=== PATIENT | female | born 1935 | race Caucasian/White ===

== ENCOUNTER 2016-10-06 06:50 | Inpatient (IN) | payer MEDICARE ==
[~2016-10-06] VITALS: Ht 172.7 cm; Wt 55.3 kg
[~2016-10-06 06:50] MED LIST: ACET325T9 PO; ASPI-482 PO; BUPR100T8 PO; DONE5TAB33 PO; LEVO125T5 PO; LEVO75TA5 PO; LISI5TAB PO; MELO-150 PO; MELO-156 PO; PARO20TA3 PO; RIVA1PAT22 TD; SIMV80TA3 PO
[2016-10-06] MEDS ORDERED: IV NORMAL SALINE 500ML BAG 500 ML IV ONE (07:15)
--- NOTE | 2016-10-06 07:27 | ED.ADGEN ---
Past Medical History Past Medical History: Dementia, High Cholesterol, Hypothyroid, Other Additional Past Medical Histor: headaches Past Surgical History: Appendectomy, Hysterectomy Additional Past Surgical Histo: cataracts Alcohol Use: Occasionally Drug Use: None Adult General Chief Complaint Chief Complaint: WEAKNESS/GENERALIZED HPI HPI Patient is a 81 year old female who presents with generalized weakness, cough and 3 loose stools. Symptoms started 2 days ago, she's had a cough for several days, now feeling short of breath. She does report chest pain when she has her cough. No known fevers, general malaise, intermittent chills. She is seen by primary care physician on Tuesday with no clear signs of infection. Denies dysuria, not complaining of abdominal pain. Chronic headache that is unchanged from baseline stemming from an accident 2 years ago. Primary care physician is Dr. Larsen. Review of Systems Review of Systems Constitutional: Is febrile upon arrival Eyes: Denies change in visual acuity. [] HENT: Denies nasal congestion or sore throat. [] Respiratory: Per history of present illness GI: Denies abdominal pain : Denies dysuria. [] Musculoskeletal: Generalized malais Integument: Denies rash. [] Neurologic: Denies focal weakness or sensory changes. [] Current Medications Current Medications Current Medications Medications (Trade) Dose Ordered Sig/Ang Start Time Stop Time Status Last Admin Dose Admin Acetaminophen 1000 mg 1,000 mg 1X ONCE 10/06/16 07:45 10/06/16 07:46 DC 10/06/16 07:49 1,000 MG Info (Do NOT chart on this entry -- for MONITORING) 1 each PRN DAILY PRN 10/06/16 08:30 10/08/16 08:29 Iohexol (Omnipaque 300 Mg/ml) 75 ml 1X ONCE 10/06/16 08:30 10/06/16 08:31 DC 10/06/16 08:55 75 ML Levofloxacin/ Dextrose (LEVAQUIN 500mg PREMIX) 100 ml @ 100 mls/hr 1X ONCE 10/06/16 08:30 10/06/16 09:29 DC 10/06/16 09:29 100 MLS/HR Levofloxacin/ Dextrose 1 each 1 each PRN DAILY PRN 10/06/16 08:15 Ondansetron HCl (Zofran) 4 mg STK-MED ONCE 10/06/16 07:53 5/3/17 07:54 DC Piperacillin Sod/ Tazobactam Sod (Zosyn Per Pharmacy) 1 each PRN DAILY PRN 10/06/16 08:15 10/06/16 08:15 DC Sodium Chloride (Iv Sodium Chloride 0.9% 500ml Bag) 500 ml @ 500 mls/hr 1X ONCE 10/06/16 07:15 10/06/16 07:29 DC Sodium Chloride (Iv Sodium Chloride 0.9% 1000ml Bag) 1,000 ml @ 1,000 mls/hr 1X ONCE 10/06/16 07:45 10/06/16 08:44 DC 10/06/16 07:51 1,000 MLS/HR Allergies Allergies Allergies Coded Allergies Type Severity Reaction Last Updated Verified No Known Drug Allergies 09/30/14 No Physical Exam Physical Exam Constitutional: Well developed, well nourished, ill-appearing, tachypnea HENT: Normocephalic, atraumatic, bilateral external ears normal, oropharynx slightly dry, no oral exudates, nose normal. [] Eyes: PERRLA, EOMI, conjunctiva normal, no discharge. [] Neck: Normal range of motion, no tenderness, supple, no stridor. [] Cardiovascular:Heart rate regular with regular rhythm, no murmur [] Lungs & Thorax: Bilateral breath sounds, moderate air movement, tachypnea, speaks in shortened sentences Abdomen: hyperactive bowel sounds, firm, nondistended, no tenderness, no masses , no pulsatile masses. [] Skin: hot, dry, no erythema, no rash. [] Back: No tenderness, no CVA tenderness. [] Extremities: No tenderness, no cyanosis, no clubbing, ROM intact, no edema. [] Neurologic: Alert and oriented X 3, normal motor function, normal sensory function, no focal deficits noted. [] Current Patient Data Vital Signs Vital Signs Date Time Temp Pulse Resp B/P Pulse Ox O2 Delivery O2 Flow Rate FiO2 10/06/16 08:18 80 28 132/60 95 Room Air 10/06/16 07:15 101.7 101.7 Lab Values Laboratory Tests Test 10/06/16 07:30 10/06/16 07:43 10/06/16 08:39 White Blood Count 18.3x10^3/uL (4.0-11.0) H Red Blood Count 3.32x10^6/uL (3.50-5.40) L Hemoglobin 10.9g/dL (12.0-15.5) L Hematocrit 33.2% (36.0-47.0) L Mean Corpuscular Volume 100fL (79-100) Mean Corpuscular Hemoglobin 33pg (25-35) Mean Corpuscular Hemoglobin Concent 33g/dL (31-37) Red Cell Distribution Width 13.3% (11.5-14.5) Platelet Count 269x10^3/uL (140-400) Neutrophils (%) (Auto) 90% (31-73) H Lymphocytes (%) (Auto) 6% (24-48) L Monocytes (%) (Auto) 4% (0-9) Eosinophils (%) (Auto) 0% (0-3) Basophils (%) (Auto) 0% (0-3) Neutrophils # (Auto) 16.5x10^3uL (1.8-7.7) H Lymphocytes # (Auto) 1.0x10^3/uL (1.0-4.8) Monocytes # (Auto) 0.7x10^3/uL (0.0-1.1) Eosinophils # (Auto) 0.0x10^3/uL (0.0-0.7) Basophils # (Auto) 0.0x10^3/uL (0.0-0.2) Segmented Neutrophils % 82% (35-66) H Band Neutrophils % 10% (0-9) H Lymphocytes % 6% (24-48) L Monocytes % 2% (0-10) Platelet Estimate Adequate (ADEQUATE) Lactic Acid Level 2.7mmol/L (0.4-2.0) H Total Bilirubin 1.9mg/dL (0.2-1.0) H Direct Bilirubin 0.4mg/dL (0.0-0.2) H Aspartate Amino Transferase (AST) 22U/L (15-37) Alanine Aminotransferase (ALT) 18U/L (14-59) Alkaline Phosphatase 82U/L (46-116) Troponin I Quantitative < 0.017ng/mL (0.000-0.055) WV-Wam-N-Type Natriuretic Peptide 2417pg/mL (0-449) H Total Protein 6.5g/dL (6.4-8.2) Albumin 2.8g/dL (3.4-5.0) L Lipase 68U/L (73-393) L POC Hemoglobin 11.6g/dL (12-15) L POC Hematocrit 34% (36-40) L POC Sodium 129mmol/L (135-145) L POC Potassium 4.2mmol/L (3.5-5.0) POC Chloride 96mmol/L (98-110) L POC Total CO2 22mmol/L (23-32) L Anion Gap 16mmol/L (6-14) H POC Blood Urea Nitrogen 17mg/dL (8-26) POC Creatinine 1.0mg/dL (0.5-1.4) Glucose Level 93mg/dL (70-99) POC Ionized Calcium (Sarah) 1.00mmol/L (1.13-1.32) L Urine Collection Type U cath Urine Color Mana Urine Clarity Clear Urine pH 5.5 Urine Specific [place] 1.015 Urine Protein 30mg/dL (NEG-TRACE) Urine Glucose (UA) Negativemg/dL (NEG) Urine Ketones (Stick) Negativemg/dL (NEG) Urine Blood Negative (NEG) Urine Nitrite Negative (NEG) Urine Bilirubin Small (NEG) Urine Urobilinogen Dipstick 1.0mg/dL (0.2 mg/dL) Urine Leukocyte Esterase Negative (NEG) Urine RBC 0/HPF (0-2) Urine WBC 1-4/HPF (0-4) Urine Squamous Epithelial Cells None/LPF Urine Bacteria 0/HPF (0-FEW) Urine Mucus Mod/LPF Laboratory Tests 10/06/16 07:30 Laboratory Tests 10/06/16 07:43 EKG EKG []83 bpm, sinus, normal axis, normal intervals, no ST elevation or depression, normal T waves, interpreted by me. Radiology/Procedures Radiology/Procedures CXR: Indication fever and cough. A single view of the chest was obtained and is compared to an exam 04/14/2015. There are suspect background changes of emphysema or fibrosis. The heart and pulmonary vessels are within normal limits. The left lung is clear. There is some slight right perihilar fullness and some suggested volume loss in the right upper lobe. Findings may reflect pneumonia. Other etiologies are not excluded. Follow-up imaging should be considered. There is no pleural fluid or pneumothorax. IMPRESSION: There is some suggested volume loss in the right upper lobe. Pneumonia is possible. Other etiologies are not excluded.. Follow-up imaging should be considered Course & Med Decision Making Course & Med Decision Making Pertinent Labs and Imaging studies reviewed. (See chart for details) Pt appears septic, pt given IV fluid bolus 1 L, blood cultures and lactate ordered, along with UA, EKG, labs/CXR. Tylenol for fever. Patient given IV Levaquin for her pneumonia. Patient received a second liter of IV fluids. CT of her abdomen did not show any acute process for infection. Will admit for her possible sepsis with her pneumonia, community-acquired. Patient accepted by Dr. Guevara [facility]. Diagnosis: Community-acquired pneumonia, sepsis-possible, fever Dragon Disclaimer Dragon Disclaimer This electronic medical record was generated, in whole or in part, using a voice recognition dictation system. LUANA ARAGON MD October 06, 2016 07:27
[2016-10-06] MEDS ORDERED: IV NORMAL SALINE 1000ML BAG 1,000 ML IV ONE ×2 (07:45→09:00)
[2016-10-06] MEDS ORDERED: ACETAMINOPHEN 500 MG TABLET PO ONE (07:45)
[2016-10-06 07:50] LABS: POTASSIUM ISTAT 4.2 mmol/L (3.5-5.0)
[2016-10-06] MEDS ORDERED: ONDANSETRON PF 4 MG/2 ML VIAL. ONE (07:53)
--- NOTE | 2016-10-06 07:58 | RAD ---
Indication fever and cough. A single view of the chest was obtained and is compared to an exam 04/14/2015. There are suspect background changes of emphysema or fibrosis. The heart and pulmonary vessels are within normal limits. The left lung is clear. There is some slight right perihilar fullness and some suggested volume loss in the right upper lobe. Findings may reflect pneumonia. Other etiologies are not excluded. Follow-up imaging should be considered. There is no pleural fluid or pneumothorax. IMPRESSION: There is some suggested volume loss in the right upper lobe. Pneumonia is possible. Other etiologies are not excluded.. Follow-up imaging should be considered
[2016-10-06] MEDS ORDERED: ONDANSETRON PF 4 MG/2 ML VIAL. IV ONE (08:00)
[2016-10-06 08:05] LABS: BASO % 0 % (0-3); EOS % 0 % (0-3); HEMATOCRIT 33.2 % (36.0-47.0); HEMOGLOBIN 10.9 g/dL (12.0-15.5); LYMPH % 6 % (24-48); MEAN CORPUSCULAR HEMOGLOBIN 33 pg (25-35); MEAN CORPUSCULAR HGB CONC 33 g/dL (31-37); MEAN CORPUSCULAR VOLUME 100 fL (79-100); MONO % 4 % (0-9); NEUT % 90 % (31-73); PLATELET COUNT 269 x10^3/uL (140-400); RED BLOOD COUNT 3.32 x10^6/uL (3.50-5.40); RED CELL DISTRIBUTION WIDTH 13.3 % (11.5-14.5); WHITE BLOOD COUNT 18.3 x10^3/uL (4.0-11.0)
[2016-10-06] MEDS ORDERED: PIP/TAZO PER PHARMACY MC PRN (08:15)
[2016-10-06] MEDS ORDERED: levOFLOXacin PER PHARMACY. MC PRN (08:15)
[2016-10-06 08:25] LABS: ALBUMIN 2.8 g/dL (3.4-5.0); DIRECT BILIRUBIN 0.4 mg/dL (0.0-0.2); TOTAL BILIRUBIN 1.9 mg/dL (0.2-1.0); TOTAL PROTEIN 6.5 g/dL (6.4-8.2)
[2016-10-06] MEDS ORDERED: IOHEXOL 300 MG/ML 75 ML VIAL IV ONE (08:30)
[2016-10-06] MEDS ORDERED: CONTRAST GIVEN MC PRN (08:30)
[2016-10-06 08:48] LABS: BILIRUBIN,URINE SMALL (NEG); GLUCOSE,URINE NEGATIVE (NEG); NITRITE,URINE NEGATIVE (NEG); PH,URINE 5.5; PROTEIN,URINE 30 mg/dL (NEG-TRACE)
[2016-10-06 09:14] LABS: BACTERIA,URINE 0 /HPF (0-FEW); RBC,URINE 0 /HPF (0-2)
--- NOTE | 2016-10-06 09:26 | RAD ---
CT of the abdomen and pelvis with contrast, 10/06/2016: History: Sepsis, firm abdomen Multidetector CT imaging was performed following IV bolus injection of iodinated contrast material. No oral contrast material was administered for this exam. There is a small amount of right-sided pleural fluid, and a trace amount of left-sided pleural fluid. There is mild streaky atelectasis and/or scarring in the lung bases. There is minimal traction bronchiectasis in the inferior lingular region on the left. A trace amount of pericardial fluid is present. The liver is enlarged with a prominent Dillan's lobe, measuring 22 cm in craniocaudad extent. No hepatic mass is identified. The gallbladder is small. No pancreatic abnormality is detected. The spleen is of normal size. It contains calcified granulomata. No renal abnormality is detected. There is moderate aortoiliac calcific plaquing. There is no evidence of aneurysm no abdominal or pelvic adenopathy is seen. The uterus is surgically absent. There is a paucity of intra-abdominal fat the bowel loops in this patient. There is a moderate amount of gas in large and small bowel with scattered air-fluid levels. No obstructive process is seen. There is a small amount of free fluid in the pelvis. No free air is evident in the abdomen or pelvis. Moderate degenerative disc disease is present at L5-S1. IMPRESSION: 1. Hepatomegaly. 2. Scattered air-fluid levels in the GI tract in a pattern suggesting a mild generalized ileus. 3. Small amount of free fluid in the pelvis. 4. Small right pleural effusion PQRS Compliance Statement: One or more of the following individualized dose reduction techniques were utilized for this examination: 1. Automated exposure control 2. Adjustment of the mA and/or kV according to patient size 3. Use of iterative reconstruction technique
--- NOTE | 2016-10-06 10:34 | ACF ---
Admission Forms Criteria SEPSIS and OTHER FEBRILE ILLNESS, W/O FOCAL INFECTION Clinical Indications for Admission to Inpatient Care ( Place 'X' for any and all applicable criteria): Admission is indicated for ANY ONE of the following (1)(2)(3)(4): [ ] I. Bacteremia [ ]II. Suspected or identified specific infection requiring hospitalization (eg, meningitis, endocarditis) [ ]III. Hemodynamic instability [ ]IV. Altered mental status [X]V. Failure or unavailability of outpatient antimicrobial treatment [ ]. Hypoxemia [ ]VII. Seizures [ ]VIII. High-risk febrile neutropenia [ ]IX. Need for parenteral antibiotic in patient who is likely to abuse vascular access device (eg, injection drug user) [A](7) [ ]X. Temperature greater than 104.9 degrees F (40.5 degrees C) (oral) [ ]XI. Inpatient admission required rather than observation care because of ANY ONE of the following: [ ]1) Specific infection identified that is too severe for outpatient treatment or observation care trial [ ]2) Metabolic disorder (eg, hypoglycemia, hyperglycemia, metabolic acidosis) that is severe or persistent [ ]3) Temperature greater than 103.1 degrees F (39.5 degrees C) ( oral) that is not responsive to observation care treatment [ ]4) IV fluid to replace significant ongoing (eg, for over 24 hours) losses (> 3 L/m2 per day) [ ]5) Supplemental oxygen or respiratory treatments for over 24 hours that is performable only in acute inpatient setting [ ]6) Parenteral nutrition regimen need that must be implemented on inpatient basis [ ]7) Strict or protective (eg, laminar flow) isolation [ ]8) Other condition, treatment or monitoring requiring inpatient admission Extended stay beyond goal length of stay may be needed for(1)(3) [ ]a) Sepsis or septic shock(22) [ ]b) Positive blood cultures [ ]c) Insufficient oral intake [ ]d) High-risk febrile neutropenia(29)(30) [ ]e) Continued fever and clinical instability [ ]f) Clinically active comorbid illness (e.g,heart failure, renal failure , diabetes) The original [employer] content created by [employer] has been revised. The portions of the content which have been revised are identified through the use of italic text or in bold, and [employer] has neither reviewed nor approved the modified material. All other unmodified content is copyright [facility]. Please see references footnoted in the original [facility] edition 2016 Admission Criteria Met?: Yes BRITTANI GANT October 06, 2016 10:34
--- NOTE | 2016-10-06 10:48 | EKG ---
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
[2016-10-06 10:52] LABS: PLT ESTIMATE ADEQUATE (ADEQUATE)
[2016-10-06 11:00] VITALS: BP 106/50
[2016-10-06] MEDS ORDERED: ONDANSETRON PF 4 MG/2 ML VIAL. IV PRN (11:15)
[2016-10-06] MEDS: ASPIRIN ENTERIC COATED 81 MG TABLET.DR. PO SCH (11:30)
[2016-10-06] MEDS ORDERED: LISINOPRIL 5 MG TABLET. PO SCH (11:30)
--- NOTE | 2016-10-06 11:37 | PDOC1 ---
History and Physical Date of Admission Date of Admission DATE: 10/06/16 TIME: 11:29 Identification/Chief Complaint Chief Complaint cough, soa Problems: Source Source: Caregiver, Chart review, Patient History of Present Illness History of Present Illness 81 y.o female accompanied by today, few days hx cough, not feeling well, Went to see PCP earlier this week, told was ok, auscultation clear , sent home, But got worse,subjective fevers at home and soa. Went to ED, at ED , sinus tach, tachypneic, elevated lactate 2.5, WBC 18,. Na 129, BNP > 2K. CXR haziness on RUL/infiltrate. Pt does feel and admits to weakness, concerned about 30 lb weight loss over a yr, No hx CA in family but never has had mammogram or Cscopes done either, Claims not eat much but does eat. ABd mildly tensed per er eval, CT ordered, showed mild ileus, pt denies any sxs. UA is still pending Past Medical History Cardiovascular: HTN, Hyperlipidemia CENTRAL NERVOUS SYSTEM: Dementia, Vertigo Heme/Onc: B12 deficiency Psych: Anxiety, Depression Musculoskeletal: Osteoarthritis, Other Renal/: Urinary Incontinence Endocrine: Hypothyroidism Past Surgical History Past Surgical History: Appendectomy, Cholecystectomy, Hysterectomy Family History Family History: Coronary Artery Disease Social History Smoke: No ALCOHOL: none Drugs: None Current Medications Current Medications Current Medications Sodium Chloride (Iv Sodium Chloride 0.9% 500ml Bag) 500 ml @ 500 mls/hr 1X ONCE IV ; Start 10/06/16 at 07:15; Stop 10/06/16 at 07:29; Status DC Acetaminophen 1000 mg 1,000 mg 1X ONCE PO Last administered on 10/06/16 07:49 ; Start 10/06/16 at 07:45; Stop 10/06/16 at 07:46; Status DC Sodium Chloride (Iv Sodium Chloride 0.9% 1000ml Bag) 1,000 ml @ 1,000 mls/hr 1X ONCE IV Last administered on 10/06/16 07:51; Start 10/06/16 at 07:45; Stop 10/06/16 at 08:44; Status DC Ondansetron HCl (Zofran) 4 mg 1X ONCE IV Last administered on 10/06/16 07:55; Start 10/06/16 at 08:00; Stop 10/06/16 at 08:06; Status DC Ondansetron HCl (Zofran) 4 mg STK-MED ONCE .ROUTE ; Start 10/06/16 at 07:53; Stop 10/06/16 at 07:54; Status DC Piperacillin Sod/ Tazobactam Sod (Zosyn Per Pharmacy) 1 each PRN DAILY PRN MC SEE COMMENTS; Start 10/06/16 at 08:15; Stop 10/06/16 at 08:15; Status DC Levofloxacin/ Dextrose 1 each 1 each PRN DAILY PRN MC SEE COMMENTS; Start at 08:15 Levofloxacin/ Dextrose (LEVAQUIN 500mg PREMIX) 100 ml @ 100 mls/hr 1X ONCE IV Last administered on 10/06/16 09:29; Start 10/06/16 at 08:30; Stop 10/06/16 at 09:29; Status DC Iohexol (Omnipaque 300 Mg/ml) 75 ml 1X ONCE IV Last administered on 10/06/16 08:55; Start 10/06/16 at 08:30; Stop 10/06/16 at 08:31; Status DC Info (Do NOT chart on this entry -- for MONITORING) 1 each PRN DAILY PRN MC SEE COMMENTS; Start 10/06/16 at 08:30; Stop 10/08/16 at 08:29 Acetaminophen 650 mg 650 mg PRN Q4HRS PRN PO FEVER; Start 10/06/16 at 09:00; Stop 10/07/16 at 08:59 Sodium Chloride 1,000 ml @ 1,000 mls/hr 1X ONCE IV Last administered on 09:29; Start 10/06/16 at 09:00; Stop 10/06/16 at 09:59; Status DC Levofloxacin/ Dextrose (LEVAQUIN 750mg PREMIX) 150 ml @ 100 mls/hr Q48H IV ; Start 10/07/16 at 09:00 Ondansetron HCl (Zofran) 4 mg PRN Q6HRS PRN IV NAUSEA/VOMITING; Start 10/06/16 at 11:15 Aspirin (Ecotrin) 81 mg DAILYAC PO ; Start 10/06/16 at 11:30 Levothyroxine Sodium (Synthroid) 75 mcg DAILY06 PO ; Start 10/06/16 at 11:30 Lisinopril (Prinivil) 5 mg DAILY PO ; Start 10/06/16 at 11:30 Active Scripts Active Tylenol (Acetaminophen) 325 Mg Tablet 650 Mg PO PRN Q4HRS PRN Prinivil (Lisinopril) 5 Mg Tablet 5 Mg PO DAILY Levothyroxine Sodium 75 Mcg Tablet 1 Tab PO DAILY Allergies Allergies: Coded Allergies: No Known Drug Allergies (Unverified , 09/30/14) ROS General: YES: Chills PSYCHOLOGICAL ROS: No: Anxiety, Behavioral Disorder, Concentration difficultie , Decreased libido, Depression, Disorientation, Hallucinations, Hostility, Irritablity, Memory difficulties, Mood Swings, Obsessive thoughts, Other, Physical abuse, Sexual abuse, Sleep disturbances, Suicidal ideation Eyes: No Blurry vision, No Decreased vision, No Double vision, No Dry eyes, No Excessive tearing, No Eye Pain, No Itchy Eyes, No Loss of vision, No Other, No Photophobia, No Scotomata, No Uses contacts, No Uses glasses HEENT: No: Epistaxis, Heacaches, Hearing change, Nasal congestion, Nasal discharge, Oral lesions, Other, Sinus pain, Sneezing, Snoring, Sore Throat, Tinnitus, Vertigo, Visual Changes, Vocal changes ALLERGY AND IMMUNOLOGY: No: Hives, Insect Bite Sensitivity, Itchy/Watery Eyes, Nasal Congestion, Other, Post Nasal Drip, Seasonal Allergies Hematological and Lymphatic: No: Bleeding Problems, Blood Clots, Blood Transfusions, Brusing, Night Sweats, Other, Pallor, Swollen Lymph Nodes ENDOCRINE: No: Breast Changes, Galactorrhea, Hair Pattern Changes, Hot Flashes , Malaise/lethargy, Mood Swings, Other, Palpitations, Polydipsia/polyuria, Skin Changes, Temperature Intolerance, Unexpected Weight Changes Breast: No New/Changing Breast Lumps, No Nipple changes, No Nipple discharge, No Other Respiratory: YES: Cough, Pleuritic Pain, Shortness of breath Cardiovascular: yes Chest Pain Gastrointestinal: No Abdominal Pain, No Constipation, No Diarrhea, No Hematochezia, No Melena, No Nausea, No Other, No Vomiting Genitourinary: No , No , No , No , No , No , No , No Discharge, No Dysuria, No Flank Pain, No Frequency, No Hematuria, No Incontinence, No Other, No Pain, No Retention, No Urgency Musculoskeletal: No Gait Disturbance, No Joint Pain, No Joint Stiffness, No Joint Swelling, No Muscle Pain, No Muscular Weakness, No Other, No Pain In:, No Swelling In: Neurological: No Behavorial Changes, No Bowel/Bladder ControlChng, No Confusion , No Dizziness, No Gait Disturbance, No Headaches, No Impaired Coord/balance, No Memory Loss, No Numbness/Tingling, No Other, No Seizures, No Speech Problems , No Tremors, No Visual Changes, No Weakness Skin: No Acne, No Dry Skin, No Eczema, No Hair Changes, No Lumps, No Mole Changes, No Mottling, No Nail Changes, No Other, No Pruritus, No Rash, No Skin Lesion Changes Physical Exam General: Alert, Oriented X3, Cooperative, No acute distress HEENT: Atraumatic, PERRLA Lungs: Normal air movement, Other (dec BS R upper, dullness to percussion R upper) Cardiovascular: S1, S2, Other (sinus tachy) Breasts: Normal Abdomen: Normal bowel sounds Male Genitals Exam: normal genitalia Rectal Exam: not examined Extremities: No clubbing, No cyanosis, No edema, Normal pulses, No tenderness/ swelling Skin: No rashes, No breakdown, No significant lesion Neuro: Normal gait, Normal speech, Strength at 5/5 X4 ext, Normal tone, Sensation intact, Cranial nerves 3-12 NL, Reflexes 2+ Psych/Mental Status: Mental status NL, Mood NL Vitals Vitals Vital Signs Date Time Temp Pulse Resp B/P Pulse Ox O2 Delivery O2 Flow Rate FiO2 10/06/16 10:35 62 16 115/58 94 Room Air 10/06/16 07:15 101.7 101.7 Labs Labs Laboratory Tests Test 10/06/16 07:30 10/06/16 07:43 10/06/16 08:39 White Blood Count 18.3x10^3/uL (4.0-11.0) Red Blood Count 3.32x10^6/uL (3.50-5.40) Hemoglobin 10.9g/dL (12.0-15.5) Hematocrit 33.2% (36.0-47.0) Mean Corpuscular Volume 100fL (79-100) Mean Corpuscular Hemoglobin 33pg (25-35) Mean Corpuscular Hemoglobin Concent 33g/dL (31-37) Red Cell Distribution Width 13.3% (11.5-14.5) Platelet Count 269x10^3/uL (140-400) Neutrophils (%) (Auto) 90% (31-73) Lymphocytes (%) (Auto) 6% (24-48) Monocytes (%) (Auto) 4% (0-9) Eosinophils (%) (Auto) 0% (0-3) Basophils (%) (Auto) 0% (0-3) Neutrophils # (Auto) 16.5x10^3uL (1.8-7.7) Lymphocytes # (Auto) 1.0x10^3/uL (1.0-4.8) Monocytes # (Auto) 0.7x10^3/uL (0.0-1.1) Eosinophils # (Auto) 0.0x10^3/uL (0.0-0.7) Basophils # (Auto) 0.0x10^3/uL (0.0-0.2) Segmented Neutrophils % 82% (35-66) Band Neutrophils % 10% (0-9) Lymphocytes % 6% (24-48) Monocytes % 2% (0-10) Platelet Estimate Adequate (ADEQUATE) Lactic Acid Level 2.7mmol/L (0.4-2.0) Total Bilirubin 1.9mg/dL (0.2-1.0) Direct Bilirubin 0.4mg/dL (0.0-0.2) Aspartate Amino Transf (AST/SGOT) 22U/L (15-37) Alanine Aminotransferase (ALT/SGPT) 18U/L (14-59) Alkaline Phosphatase 82U/L (46-116) Troponin I Quantitative < 0.017ng/mL (0.000-0.055) BJ-Yhs-T-Type Natriuretic Peptide 2417pg/mL (0-449) Total Protein 6.5g/dL (6.4-8.2) Albumin 2.8g/dL (3.4-5.0) Lipase 68U/L (73-393) Bedside Hemoglobin 11.6g/dL (12-15) Bedside Hematocrit 34% (36-40) Bedside Sodium 129mmol/L (135-145) Bedside Potassium 4.2mmol/L (3.5-5.0) Bedside Chloride 96mmol/L (98-110) Bedside Total CO2 22mmol/L (23-32) Anion Gap 16mmol/L (6-14) Bedside Blood Urea Nitrogen 17mg/dL (8-26) Bedside Creatinine 1.0mg/dL (0.5-1.4) Glucose Level 93mg/dL (70-99) Bedside Ionized Calcium (Sarah) 1.00mmol/L (1.13-1.32) Urine Collection Type U cath Urine Color Mana Urine Clarity Clear Urine pH 5.5 Urine Specific Stearns 1.015 Urine Protein 30mg/dL (NEG-TRACE) Urine Glucose (UA) Negativemg/dL (NEG) Urine Ketones (Stick) Negativemg/dL (NEG) Urine Blood Negative (NEG) Urine Nitrite Negative (NEG) Urine Bilirubin Small (NEG) Urine Urobilinogen Dipstick 1.0mg/dL (0.2 mg/dL) Urine Leukocyte Esterase Negative (NEG) Urine RBC 0/HPF (0-2) Urine WBC 1-4/HPF (0-4) Urine Squamous Epithelial Cells None/LPF Urine Bacteria 0/HPF (0-FEW) Urine Mucus Mod/LPF Laboratory Tests Test 10/06/16 07:30 10/06/16 07:43 10/06/16 08:39 White Blood Count 18.3x10^3/uL (4.0-11.0) Red Blood Count 3.32x10^6/uL (3.50-5.40) Hemoglobin 10.9g/dL (12.0-15.5) Hematocrit 33.2% (36.0-47.0) Mean Corpuscular Volume 100fL (79-100) Mean Corpuscular Hemoglobin 33pg (25-35) Mean Corpuscular Hemoglobin Concent 33g/dL (31-37) Red Cell Distribution Width 13.3% (11.5-14.5) Platelet Count 269x10^3/uL (140-400) Neutrophils (%) (Auto) 90% (31-73) Lymphocytes (%) (Auto) 6% (24-48) Monocytes (%) (Auto) 4% (0-9) Eosinophils (%) (Auto) 0% (0-3) Basophils (%) (Auto) 0% (0-3) Neutrophils # (Auto) 16.5x10^3uL (1.8-7.7) Lymphocytes # (Auto) 1.0x10^3/uL (1.0-4.8) Monocytes # (Auto) 0.7x10^3/uL (0.0-1.1) Eosinophils # (Auto) 0.0x10^3/uL (0.0-0.7) Basophils # (Auto) 0.0x10^3/uL (0.0-0.2) Segmented Neutrophils % 82% (35-66) Band Neutrophils % 10% (0-9) Lymphocytes % 6% (24-48) Monocytes % 2% (0-10) Platelet Estimate Adequate (ADEQUATE) Lactic Acid Level 2.7mmol/L (0.4-2.0) Total Bilirubin 1.9mg/dL (0.2-1.0) Direct Bilirubin 0.4mg/dL (0.0-0.2) Aspartate Amino Transf (AST/SGOT) 22U/L (15-37) Alanine Aminotransferase (ALT/SGPT) 18U/L (14-59) Alkaline Phosphatase 82U/L (46-116) Troponin I Quantitative < 0.017ng/mL (0.000-0.055) XP-Quo-F-Type Natriuretic Peptide 2417pg/mL (0-449) Total Protein 6.5g/dL (6.4-8.2) Albumin 2.8g/dL (3.4-5.0) Lipase 68U/L (73-393) Bedside Hemoglobin 11.6g/dL (12-15) Bedside Hematocrit 34% (36-40) Bedside Sodium 129mmol/L (135-145) Bedside Potassium 4.2mmol/L (3.5-5.0) Bedside Chloride 96mmol/L (98-110) Bedside Total CO2 22mmol/L (23-32) Anion Gap 16mmol/L (6-14) Bedside Blood Urea Nitrogen 17mg/dL (8-26) Bedside Creatinine 1.0mg/dL (0.5-1.4) Glucose Level 93mg/dL (70-99) Bedside Ionized Calcium (Sarah) 1.00mmol/L (1.13-1.32) Urine Collection Type U cath Urine Color Mana Urine Clarity Clear Urine pH 5.5 Urine Specific Stearns 1.015 Urine Protein 30mg/dL (NEG-TRACE) Urine Glucose (UA) Negativemg/dL (NEG) Urine Ketones (Stick) Negativemg/dL (NEG) Urine Blood Negative (NEG) Urine Nitrite Negative (NEG) Urine Bilirubin Small (NEG) Urine Urobilinogen Dipstick 1.0mg/dL (0.2 mg/dL) Urine Leukocyte Esterase Negative (NEG) Urine RBC 0/HPF (0-2) Urine WBC 1-4/HPF (0-4) Urine Squamous Epithelial Cells None/LPF Urine Bacteria 0/HPF (0-FEW) Urine Mucus Mod/LPF VTE Prophylaxis Ordered VTE Prophylaxis Devices: Yes VTE Pharmacological Prophylaxi: Yes Assessment/Plan Assessment/Plan 1. SIRS, sepsis, sec to CAP 2. HTN 3. Hypothyroidism 4./ Hyponatremia on Rustam inhib 5. MIld ielus, no asymptomatic PLAN: Meets sepsis criteria with tachycardiac, tahcypnea, elevated WBC< elevated lactate, fevers at home, RUL infiltrate CAP coverage Pulmo consult Recheck lactate tami Fluid bolus Check BMP tami Check mycoplasma leigonella sec to hyponat COuld be sec to RUSTAM inhib too Cont PO synthroid Nebs PT/OT NUtirtion consult sec to poor PO Outpt c scope and mammogram discussed DVT prophy Seen at [facility] MD October 06, 2016 11:37
[2016-10-06] MEDS ORDERED: PROAIR HFA8.5 GM INH (11:44)
[2016-10-06] MEDS ORDERED: MAGNESIUM HYDROXIDE 2,400 MG/30 ML ORAL.SUSP. PO PRN (11:45)
[2016-10-06] MEDS ORDERED: FOLI1TAB16 PO (11:47)
[2016-10-06] MEDS ORDERED: METH2.5T PO (11:50)
[2016-10-06] MEDS: POLYETHYLENE GLYCOL 3350 17 GM PACKET. PO SCH (12:00)
[2016-10-06] MEDS ORDERED: HYDR200T5 PO (12:02)
[2016-10-06] MEDS ORDERED: CITA20TA5 PO (12:03)
--- NOTE | 2016-10-06 12:20 | PDOC ---
Provider Note Provider Note DICTATED SUSPECT RIGHT HILAR MASS/ WT LOSS CT CHEST /ABDOMEN/PELVIS ANN MARIE HERNANDEZ MD October 06, 2016 12:20
--- NOTE | 2016-10-06 12:42 | CONS ---
DATE OF CONSULTATION: 10/06/2016 ATTENDING PHYSICIAN: Denia Prado MD REASON FOR CONSULTATION: Pneumonia. HISTORY OF PRESENT ILLNESS: The patient is a pleasant 81-year-old female who has never smoked cigarettes. She said she was told that she had pneumonia. She has not been feeling well. She has been having a cough with no sputum production. She was also having pain in the right upper chest and also at the back area. The patient has lost weight and has not been eating well and has poor appetite. She has some increasing shortness of breath as well. I have reviewed patient's chest x-ray, which was performed today. There is some right hilar fullness and there is an infiltrate in the right upper lobe are. I have also reviewed her chest x-ray from 04/14/2015 and at that time, there appeared to be a rounded density in the right perihilar area, which could be a pulmonary artery shadow versus a right hilar adenopathy. I am concerned about the possibility of malignancy and a postobstructive pneumonia. She also had some bloody stools. CT abdomen and pelvis did not reveal any obvious mass. Consultation requested for further evaluation and management. PAST MEDICAL HISTORY: Hypertension, hyperlipidemia, dementia, vertigo, B12 deficiency, depression, osteoarthritis, urinary incontinence, and hypothyroidism. PAST SURGICAL HISTORY: Appendectomy, cholecystectomy, and hysterectomy. FAMILY HISTORY: Coronary artery disease. ALLERGIES: None. CURRENT MEDICATIONS: Reviewed as listed in the [facility] including antibiotics and Lovenox for DVT prophylaxis. SOCIAL HISTORY: Nonsmoker. PHYSICAL EXAMINATION: VITAL SIGNS: Blood pressure 106/50, afebrile, and pulse ox 94% on room air. NECK: Supple. LUNGS: Diminished breath sounds, right upper chest. No wheezing. CARDIOVASCULAR: Regular rate and rhythm. ABDOMEN: Soft. EXTREMITIES: With no pitting edema. LABORATORY DATA: Reviewed. White cell count 18.3, hemoglobin 10.9 and platelets are 269. BUN is 17, creatinine 1.0. IMPRESSION: 1. Persistent cough with weight loss and loss of appetite and progressive weakness in a patient with abnormal chest x-ray with right hilar fullness and also infiltrate in the right upper lobe. I suspect we may be dealing with a lung malignancy with postobstructive pneumonia. There was abnormality seen on the chest x-ray in 2014 as well. 2. No significant history of tobacco use. 3. Leukocytosis secondary to suspected post-obstructive pneumonia. 4. Hyponatremia could be related to [employer] metastasis. 5. Blood in the stools. CT abdomen negative for any malignancy. RECOMMENDATIONS: 1. Obtain CT chest to rule out right hilar mass and postobstructive pneumonia. 2. Follow sodium level. 3. Continue present antibiotics. 4. DVT prophylaxis with Lovenox. 5. P.r.n. bronchodilators. 6. Further recommendations to follow after review of CT chest. ANN MARIE HERNANDEZ MD DR: LINDA/juan JOB#: [id number] / [id number] MICHELLE
[2016-10-06] MEDS: LEVOTHYROXINE 75 MCG TABLET PO SCH (13:34)
[2016-10-06 14:15] LABS: NEGATIVE OBC MYCO NEG; POSITIVE OBC MYCO POS
--- NOTE | 2016-10-06 14:46 | RAD ---
Indication possible pathology in the right upper lobe seen on plain film. Axial imaging through the chest was performed. No contrast was administered for this exam. Note is made of a recent CT examination of the abdomen and pelvis. That exam was performed with contrast. No prior CT imaging of the chest is available. Imaging through the upper abdomen shows no finding outside those referenced on the CT examination earlier this day. Known small right pleural effusion is reproduced The thoracic aorta is grossly unremarkable. Significant mediastinal or hilar adenopathy is not seen. The left lung is clear apart from some bronchiectasis in the lingula. There is dense consolidation in the right upper lobe compatible with pneumonia. A dominant soft tissue mass is not seen in aerated lung. IMPRESSION: Dense consolidation in the right upper lobe compatible with pneumonia. PQRS Compliance Statement: One or more of the following individualized dose reduction techniques were utilized for this examination: 1. Automated exposure control 2. Adjustment of the mA and/or kV according to patient size 3. Use of iterative reconstruction technique
[2016-10-06 15:00] VITALS: BP 106/42
[2016-10-06] MEDS ORDERED: NON FORMULARY ITEM (Albuterol Sulfate (Proair Hfa Inhaler) 1 PUFF) INH PRN (15:00)
[2016-10-06] MEDS ORDERED: ALBUTEROL SULFATE 2.5 MG/3 ML NEBU. NEB PRN (15:15)
[2016-10-06] MEDS: CITALOPRAM 20 MG TABLET. PO SCH (16:37)
[2016-10-06] MEDS: ENOXAPARIN 30 MG/0.3 ML SYRINGE. SQ SCH (16:38)
[2016-10-06] MEDS: ACETAMINOPHEN 325 MG TABLET. PO PRN ×2 (16:38→21:12)
[2016-10-06 19:38] VITALS: BP 121/52
[2016-10-06 22:41] VITALS: BP 97/47
[2016-10-06] MEDS ORDERED: IV NORMAL SALINE 1000ML BAG 1,000 ML IV SCH (23:30)
[2016-10-07] VITALS (7 sets, daily range): BP systolic 87–134; BP diastolic 44–63
[2016-10-07] MEDS ORDERED: IV NORMAL SALINE 1000ML BAG 1,000 ML IV ONE
[2016-10-07 03:23] LABS: BASO % 0 % (0-3); EOS % 0 % (0-3); HEMATOCRIT 30.3 % (36.0-47.0); LYMPH # 0.9 x10^3/uL (1.0-4.8); LYMPH % 5 % (24-48); MEAN CORPUSCULAR HEMOGLOBIN 33 pg (25-35); MEAN CORPUSCULAR HGB CONC 33 g/dL (31-37); MEAN CORPUSCULAR VOLUME 100 fL (79-100); MONO % 2 % (0-9); NEUT % 92 % (31-73); PLATELET COUNT 220 x10^3/uL (140-400); RED BLOOD COUNT 3.03 x10^6/uL (3.50-5.40); RED CELL DISTRIBUTION WIDTH 13.2 % (11.5-14.5); WHITE BLOOD COUNT 17.6 x10^3/uL (4.0-11.0)
[2016-10-07 03:33] LABS: CALCIUM 7.8 mg/dL (8.5-10.1); GFR 53.1; POTASSIUM 3.4 mmol/L (3.5-5.1)
[2016-10-07] MEDS: LEVOTHYROXINE 75 MCG TABLET PO SCH (06:00)
[2016-10-07] MEDS: ACETAMINOPHEN 325 MG TABLET. PO PRN (06:00)
[2016-10-07] MEDS: CITALOPRAM 20 MG TABLET. PO SCH (08:28)
[2016-10-07] MEDS: ASPIRIN ENTERIC COATED 81 MG TABLET.DR. PO SCH (08:28)
[2016-10-07] MEDS: POLYETHYLENE GLYCOL 3350 17 GM PACKET. PO SCH (08:28)
[2016-10-07] MEDS ORDERED: POTASSIUM CHLORIDE 20 MEQ TABLET.ER. PO ONE (09:30)
--- NOTE | 2016-10-07 10:27 | PDOC ---
PROGRESS NOTES Chief Complaint Chief Complaint 1. SIRS, sepsis, sec to CAP 2. RUL PNA 3. HTN 4. Hypothyroidism on synthroid 5.Hyponatremia on Rustam inhib 6. 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 Poor pO, mod PCM 8, Hypokalemia sec to poor PO History of Present Illness History of Present Illness About the same, no inc SOA nO fevers WBC remains same 17-[address] chest shows dense RUL consolidation Working with PT now, weak Ate barely breakfast K mildly low Dw pt and family, has tried appetite stimulant by PCP in past to no avail - does not want more pills Feels cold yet hot - on synthroid Still loose stools PLAN: CPM Monitor leukocytosis and fevers Send sputum if specimen avail Second order for stool tests Might need SNU - might not be agreeable Nutrition on board MIght need gentle procalamine as caloric agent DVt prophy Dw family and RN Vitals Vitals Vital Signs Date Time Temp Pulse Resp B/P (MAP) Pulse Ox O2 Delivery O2 Flow Rate FiO2 10/07/16 08:00 Room Air 10/07/16 07:00 97.5 73 16 108/47 (67) 95 97.5 Physical Exam General: Alert, Oriented X3, Cooperative, No acute distress Abdomen: Normal bowel sounds Extremities: No clubbing, No cyanosis, No edema, Normal pulses, No tenderness/ swelling Skin: No rashes, No breakdown, No significant lesion Labs LABS Laboratory Tests Test 10/06/16 11:05 10/07/16 03:10 Lactic Acid Level 1.5 mmol/L (0.4-2.0) Mycoplasma Serology (LAB) Negative (NEGATIVE) White Blood Count 17.6 x10^3/uL (4.0-11.0) Red Blood Count 3.03 x10^6/uL (3.50-5.40) Hemoglobin 10.0 g/dL (12.0-15.5) Hematocrit 30.3 % (36.0-47.0) Mean Corpuscular Volume 100 fL (79-100) Mean Corpuscular Hemoglobin 33 pg (25-35) Mean Corpuscular Hemoglobin Concent 33 g/dL (31-37) Red Cell Distribution Width 13.2 % (11.5-14.5) Platelet Count 220 x10^3/uL (140-400) Neutrophils (%) (Auto) 92 % (31-73) Lymphocytes (%) (Auto) 5 % (24-48) Monocytes (%) (Auto) 2 % (0-9) Eosinophils (%) (Auto) 0 % (0-3) Basophils (%) (Auto) 0 % (0-3) Neutrophils # (Auto) 16.3 x10^3uL (1.8-7.7) Lymphocytes # (Auto) 0.9 x10^3/uL (1.0-4.8) Monocytes # (Auto) 0.4 x10^3/uL (0.0-1.1) Eosinophils # (Auto) 0.0 x10^3/uL (0.0-0.7) Basophils # (Auto) 0.0 x10^3/uL (0.0-0.2) Sodium Level 135 mmol/L (136-145) Potassium Level 3.4 mmol/L (3.5-5.1) Chloride Level 102 mmol/L (98-107) Carbon Dioxide Level 24 mmol/L (21-32) Anion Gap 9 (6-14) Blood Urea Nitrogen 14 mg/dL (7-20) Creatinine 1.0 mg/dL (0.6-1.0) Estimated GFR (Cockcroft-Gault) 53.1 Glucose Level 85 mg/dL (70-99) Calcium Level 7.8 mg/dL (8.5-10.1) Review of Systems Review of Systems feels cold yet warm, diarrhea, no cough, no n/v/emesis Comment Review of Relevant I have reviewed the following items sandra (where applicable) has been applied. Labs Laboratory Tests Test 10/06/16 07:30 10/06/16 07:43 10/06/16 08:39 10/06/16 11:05 White Blood Count 18.3 x10^3/uL (4.0-11.0) Red Blood Count 3.32 x10^6/uL (3.50-5.40) Hemoglobin 10.9 g/dL (12.0-15.5) Hematocrit 33.2 % (36.0-47.0) Mean Corpuscular Volume 100 fL (79-100) Mean Corpuscular Hemoglobin 33 pg (25-35) Mean Corpuscular Hemoglobin Concent 33 g/dL (31-37) Red Cell Distribution Width 13.3 % (11.5-14.5) Platelet Count 269 x10^3/uL (140-400) Neutrophils (%) (Auto) 90 % (31-73) Lymphocytes (%) (Auto) 6 % (24-48) Monocytes (%) (Auto) 4 % (0-9) Eosinophils (%) (Auto) 0 % (0-3) Basophils (%) (Auto) 0 % (0-3) Neutrophils # (Auto) 16.5 x10^3uL (1.8-7.7) Lymphocytes # (Auto) 1.0 x10^3/uL (1.0-4.8) Monocytes # (Auto) 0.7 x10^3/uL (0.0-1.1) Eosinophils # (Auto) 0.0 x10^3/uL (0.0-0.7) Basophils # (Auto) 0.0 x10^3/uL (0.0-0.2) Segmented Neutrophils % 82 % (35-66) Band Neutrophils % 10 % (0-9) Lymphocytes % 6 % (24-48) Monocytes % 2 % (0-10) Platelet Estimate Adequate (ADEQUATE) Lactic Acid Level 2.7 mmol/L (0.4-2.0) 1.5 mmol/L (0.4-2.0) Total Bilirubin 1.9 mg/dL (0.2-1.0) Direct Bilirubin 0.4 mg/dL (0.0-0.2) Aspartate Amino Transf (AST/SGOT) 22 U/L (15-37) Alanine Aminotransferase (ALT/SGPT) 18 U/L (14-59) Alkaline Phosphatase 82 U/L (46-116) Troponin I Quantitative < 0.017 ng/mL (0.000-0.055) LK-Bqc-P-Type Natriuretic Peptide 2417 pg/mL (0-449) Total Protein 6.5 g/dL (6.4-8.2) Albumin 2.8 g/dL (3.4-5.0) Lipase 68 U/L (73-393) Bedside Hemoglobin 11.6 g/dL (12-15) Bedside Hematocrit 34 % (36-40) Bedside Sodium 129 mmol/L (135-145) Bedside Potassium 4.2 mmol/L (3.5-5.0) Bedside Chloride 96 mmol/L (98-110) Bedside Total CO2 22 mmol/L (23-32) Anion Gap 16 mmol/L (6-14) Bedside Blood Urea Nitrogen 17 mg/dL (8-26) Bedside Creatinine 1.0 mg/dL (0.5-1.4) Glucose Level 93 mg/dL (70-99) Bedside Ionized Calcium (Sarah) 1.00 mmol/L (1.13-1.32) Urine Collection Type U cath Urine Color Mana Urine Clarity Clear Urine pH 5.5 Urine Specific [place] 1.015 Urine Protein 30 mg/dL (NEG-TRACE) Urine Glucose (UA) Negative mg/dL (NEG) Urine Ketones (Stick) Negative mg/dL (NEG) Urine Blood Negative (NEG) Urine Nitrite Negative (NEG) Urine Bilirubin Small (NEG) Urine Urobilinogen Dipstick 1.0 mg/dL (0.2 mg/dL) Urine Leukocyte Esterase Negative (NEG) Urine RBC 0 /HPF (0-2) Urine WBC 1-4 /HPF (0-4) Urine Squamous Epithelial Cells None /LPF Urine Bacteria 0 /HPF (0-FEW) Urine Mucus Mod /LPF Mycoplasma Serology (LAB) Negative (NEGATIVE) Test 10/07/16 03:10 White Blood Count 17.6 x10^3/uL (4.0-11.0) Red Blood Count 3.03 x10^6/uL (3.50-5.40) Hemoglobin 10.0 g/dL (12.0-15.5) Hematocrit 30.3 % (36.0-47.0) Mean Corpuscular Volume 100 fL (79-100) Mean Corpuscular Hemoglobin 33 pg (25-35) Mean Corpuscular Hemoglobin Concent 33 g/dL (31-37) Red Cell Distribution Width 13.2 % (11.5-14.5) Platelet Count 220 x10^3/uL (140-400) Neutrophils (%) (Auto) 92 % (31-73) Lymphocytes (%) (Auto) 5 % (24-48) Monocytes (%) (Auto) 2 % (0-9) Eosinophils (%) (Auto) 0 % (0-3) Basophils (%) (Auto) 0 % (0-3) Neutrophils # (Auto) 16.3 x10^3uL (1.8-7.7) Lymphocytes # (Auto) 0.9 x10^3/uL (1.0-4.8) Monocytes # (Auto) 0.4 x10^3/uL (0.0-1.1) Eosinophils # (Auto) 0.0 x10^3/uL (0.0-0.7) Basophils # (Auto) 0.0 x10^3/uL (0.0-0.2) Sodium Level 135 mmol/L (136-145) Potassium Level 3.4 mmol/L (3.5-5.1) Chloride Level 102 mmol/L (98-107) Carbon Dioxide Level 24 mmol/L (21-32) Anion Gap 9 (6-14) Blood Urea Nitrogen 14 mg/dL (7-20) Creatinine 1.0 mg/dL (0.6-1.0) Estimated GFR (Cockcroft-Gault) 53.1 Glucose Level 85 mg/dL (70-99) Calcium Level 7.8 mg/dL (8.5-10.1) Laboratory Tests Test 10/06/16 11:05 10/07/16 03:10 Lactic Acid Level 1.5 mmol/L (0.4-2.0) Mycoplasma Serology (LAB) Negative (NEGATIVE) White Blood Count 17.6 x10^3/uL (4.0-11.0) Red Blood Count 3.03 x10^6/uL (3.50-5.40) Hemoglobin 10.0 g/dL (12.0-15.5) Hematocrit 30.3 % (36.0-47.0) Mean Corpuscular Volume 100 fL (79-100) Mean Corpuscular Hemoglobin 33 pg (25-35) Mean Corpuscular Hemoglobin Concent 33 g/dL (31-37) Red Cell Distribution Width 13.2 % (11.5-14.5) Platelet Count 220 x10^3/uL (140-400) Neutrophils (%) (Auto) 92 % (31-73) Lymphocytes (%) (Auto) 5 % (24-48) Monocytes (%) (Auto) 2 % (0-9) Eosinophils (%) (Auto) 0 % (0-3) Basophils (%) (Auto) 0 % (0-3) Neutrophils # (Auto) 16.3 x10^3uL (1.8-7.7) Lymphocytes # (Auto) 0.9 x10^3/uL (1.0-4.8) Monocytes # (Auto) 0.4 x10^3/uL (0.0-1.1) Eosinophils # (Auto) 0.0 x10^3/uL (0.0-0.7) Basophils # (Auto) 0.0 x10^3/uL (0.0-0.2) Sodium Level 135 mmol/L (136-145) Potassium Level 3.4 mmol/L (3.5-5.1) Chloride Level 102 mmol/L (98-107) Carbon Dioxide Level 24 mmol/L (21-32) Anion Gap 9 (6-14) Blood Urea Nitrogen 14 mg/dL (7-20) Creatinine 1.0 mg/dL (0.6-1.0) Estimated GFR (Cockcroft-Gault) 53.1 Glucose Level 85 mg/dL (70-99) Calcium Level 7.8 mg/dL (8.5-10.1) Microbiology 10/06/16 Blood Culture - Preliminary, Resulted NO GROWTH AFTER 1 DAY Medications Current Medications Sodium Chloride 500 ml @ 500 mls/hr 1X ONCE IV ; Start 10/06/16 at 07:15; Stop 10/06/16 at 07:29; Status DC Acetaminophen (Tylenol) 1,000 mg 1X ONCE PO Last administered on 10/06/16 07: 49; Start 10/06/16 at 07:45; Stop 10/06/16 at 07:46; Status DC Sodium Chloride 1,000 ml @ 1,000 mls/hr 1X ONCE IV Last administered on 07:51; Start 10/06/16 at 07:45; Stop 10/06/16 at 08:44; Status DC Ondansetron HCl (Zofran) 4 mg 1X ONCE IV Last administered on 10/06/16 07:55; Start 10/06/16 at 08:00; Stop 10/06/16 at 08:06; Status DC Ondansetron HCl (Zofran) 4 mg STK-MED ONCE .ROUTE ; Start 10/06/16 at 07:53; Stop 10/06/16 at 07:54; Status DC Piperacillin Sod/ Tazobactam Sod (Zosyn Per Pharmacy) 1 each PRN DAILY PRN MC SEE COMMENTS; Start 10/06/16 at 08:15; Stop 10/06/16 at 08:15; Status DC Levofloxacin/ Dextrose (Levaquin Per Pharmacy) 1 each PRN DAILY PRN MC SEE COMMENTS; Start 10/06/16 at 08:15 Levofloxacin/ Dextrose 100 ml @ 100 mls/hr 1X ONCE IV Last administered on 09:29; Start 10/06/16 at 08:30; Stop 10/06/16 at 09:29; Status DC Iohexol (Omnipaque 300 Mg/ml) 75 ml 1X ONCE IV Last administered on 10/06/16 08:55; Start 10/06/16 at 08:30; Stop 10/06/16 at 08:31; Status DC Info (Do NOT chart on this entry -- for MONITORING) 1 each PRN DAILY PRN MC SEE COMMENTS; Start 10/06/16 at 08:30; Stop 10/08/16 at 08:29 Acetaminophen (Tylenol) 650 mg PRN Q4HRS PRN PO FEVER Last administered on 21:12; Start 10/06/16 at 09:00; Stop 10/07/16 at 08:59; Status DC Sodium Chloride 1,000 ml @ 1,000 mls/hr 1X ONCE IV Last administered on 09:29; Start 10/06/16 at 09:00; Stop 10/06/16 at 09:59; Status DC Levofloxacin/ Dextrose 150 ml @ 100 mls/hr Q48H IV Last administered on 08:29; Start 10/07/16 at 09:00 Ondansetron HCl (Zofran) 4 mg PRN Q6HRS PRN IV NAUSEA/VOMITING; Start 10/06/16 at 11:15 Aspirin (Ecotrin) 81 mg DAILYAC PO Last administered on 10/07/16 08:28; Start 10/06/16 at 11:30 Levothyroxine Sodium (Synthroid) 75 mcg DAILY06 PO Last administered on 06:00; Start 10/06/16 at 11:30 Lisinopril (Prinivil) 5 mg DAILY PO ; Start 10/06/16 at 11:30; Stop 10/06/16 at 15 :04; Status DC Enoxaparin Sodium (Lovenox 30mg Syringe) 30 mg DAILY16 SQ Last administered on 10/06/16 16:38; Start 10/06/16 at 16:00 Polyethylene Glycol (miraLAX PACKET) 17 gm DAILY PO Last administered on 08:28; Start 10/06/16 at 12:00 Magnesium Hydroxide (Milk Of Magnesia) 2,400 mg PRN DAILY PRN PO CONSTIPATION; Start 10/06/16 at 11:45 Citalopram Hydrobromide (CeleXA) 20 mg DAILY PO Last administered on 10/07/16 08:28; Start 10/06/16 at 15:30 Non-Formulary Medication 1 puff QIDPRN PRN INH SHORTNESS OF BREATH; Start at 15:00; Status UNV Albuterol Sulfate (Ventolin Neb Soln) 2.5 mg PRN QID PRN NEB SHORTNESS OF BREATH; Start 10/06/16 at 15:15 Sodium Chloride 1,000 ml @ 1,650 mls/hr Q37M IV ; Start 10/06/16 at 23:30; Stop 10/06/16 at 23:50; Status DC Sodium Chloride 1,000 ml @ 0 mls/hr 1X ONCE IV Last administered on 10/07/16 00:00; Start 10/07/16 at 00:00; Stop 10/07/16 at 00:01; Status DC Potassium Chloride (Klor-Con) 40 meq 1X ONCE PO Last administered on 10/07/16 09:53; Start 10/07/16 at 09:30; Stop 10/07/16 at 09:31; Status DC Active Scripts Active Tylenol (Acetaminophen) 325 Mg Tablet 650 Mg PO PRN Q4HRS PRN Prinivil (Lisinopril) 5 Mg Tablet 5 Mg PO DAILY Levothyroxine Sodium 75 Mcg Tablet 1 Tab PO DAILY Reported Citalopram Hbr (Citalopram Hydrobromide) 20 Mg Tablet 1 Tab PO DAILY Hydroxychloroquine Sulfate 200 Mg Tablet 1 Tab PO BID Methotrexate (Methotrexate Sodium) 2.5 Mg Tablet 4 Tab PO WEEKLY Folic Acid 1 Mg Tablet 1 Tab PO DAILY Proair Hfa Inhaler (Albuterol Sulfate) 8.5 Gm Hfa.aer.ad 1 Puff INH QIDPRN PRN Vitals/I & O Vital Sign - Last 24 Hours 10/06/16 10/06/16 10/06/16 10/06/16 10:35 11:00 11:00 15:00 Temp 97.5 97.5 97.3 97.5 97.5 97.3 Pulse 62 67 67 67 Resp 16 18 18 20 B/P (MAP) 115/58 (77) 106/50 (68) 106/50 (68) 106/42 (63) Pulse Ox 94 94 94 99 O2 Delivery Room Air Room Air Room Air Room Air 10/06/16 10/06/16 10/06/16 10/06/16 16:23 17:51 18:08 19:38 Temp 98.2 98.2 Pulse 71 Resp 18 B/P (MAP) 121/52 (75) Pulse Ox 97 98 O2 Delivery Room Air Room Air Room Air Room Air 10/06/16 10/06/16 10/07/16 10/07/16 20:00 22:41 01:50 02:28 Temp 98.6 97.6 98.6 97.6 Pulse 67 67 Resp 18 B/P (MAP) 97/47 (64) 124/52 (76) 107/54 (71) Pulse Ox 95 94 O2 Delivery Room Air Room Air Room Air 10/07/16 10/07/16 07:00 08:00 Temp 97.5 97.5 Pulse 73 Resp 16 B/P (MAP) 108/47 (67) Pulse Ox 95 O2 Delivery Room Air Room Air Intake and Output 10/06/16 10/06/16 10/07/16 14:59 22:59 06:59 Intake Total 1000 ml 240 ml Output Total 350 ml Balance 1000 ml -110 ml ALLA PETER MD October 07, 2016 10:26
--- NOTE | 2016-10-07 11:40 | PDOC ---
PULMONARY PROGRESS NOTES Subjective no soa Vitals Vital Signs Date Time Temp Pulse Resp B/P (MAP) Pulse Ox O2 Delivery O2 Flow Rate FiO2 10/07/16 11:00 98.0 68 16 87/44 (58) 97 Room Air 98.0 General: Alert, No acute distress Lungs: Clear Cardiovascular: S1, S2 Abdomen: Soft Neuro Exam: Alert Extremities: No Edema Skin: Warm Labs Laboratory Tests Test 10/06/16 07:30 10/06/16 07:43 10/06/16 08:39 10/06/16 11:05 White Blood Count 18.3 x10^3/uL (4.0-11.0) Red Blood Count 3.32 x10^6/uL (3.50-5.40) Hemoglobin 10.9 g/dL (12.0-15.5) Hematocrit 33.2 % (36.0-47.0) Mean Corpuscular Volume 100 fL (79-100) Mean Corpuscular Hemoglobin 33 pg (25-35) Mean Corpuscular Hemoglobin Concent 33 g/dL (31-37) Red Cell Distribution Width 13.3 % (11.5-14.5) Platelet Count 269 x10^3/uL (140-400) Neutrophils (%) (Auto) 90 % (31-73) Lymphocytes (%) (Auto) 6 % (24-48) Monocytes (%) (Auto) 4 % (0-9) Eosinophils (%) (Auto) 0 % (0-3) Basophils (%) (Auto) 0 % (0-3) Neutrophils # (Auto) 16.5 x10^3uL (1.8-7.7) Lymphocytes # (Auto) 1.0 x10^3/uL (1.0-4.8) Monocytes # (Auto) 0.7 x10^3/uL (0.0-1.1) Eosinophils # (Auto) 0.0 x10^3/uL (0.0-0.7) Basophils # (Auto) 0.0 x10^3/uL (0.0-0.2) Segmented Neutrophils % 82 % (35-66) Band Neutrophils % 10 % (0-9) Lymphocytes % 6 % (24-48) Monocytes % 2 % (0-10) Platelet Estimate Adequate (ADEQUATE) Lactic Acid Level 2.7 mmol/L (0.4-2.0) 1.5 mmol/L (0.4-2.0) Total Bilirubin 1.9 mg/dL (0.2-1.0) Direct Bilirubin 0.4 mg/dL (0.0-0.2) Aspartate Amino Transf (AST/SGOT) 22 U/L (15-37) Alanine Aminotransferase (ALT/SGPT) 18 U/L (14-59) Alkaline Phosphatase 82 U/L (46-116) Troponin I Quantitative < 0.017 ng/mL (0.000-0.055) SO-Gsa-[id number]-Type Natriuretic Peptide 2417 pg/mL (0-449) Total Protein 6.5 g/dL (6.4-8.2) Albumin 2.8 g/dL (3.4-5.0) Lipase 68 U/L (73-393) Bedside Hemoglobin 11.6 g/dL (12-15) Bedside Hematocrit 34 % (36-40) Bedside Sodium 129 mmol/L (135-145) Bedside Potassium 4.2 mmol/L (3.5-5.0) Bedside Chloride 96 mmol/L (98-110) Bedside Total CO2 22 mmol/L (23-32) Anion Gap 16 mmol/L (6-14) Bedside Blood Urea Nitrogen 17 mg/dL (8-26) Bedside Creatinine 1.0 mg/dL (0.5-1.4) Glucose Level 93 mg/dL (70-99) Bedside Ionized Calcium (Sarah) 1.00 mmol/L (1.13-1.32) Urine Collection Type U cath Urine Color Mana Urine Clarity Clear Urine pH 5.5 Urine Specific [place] 1.015 Urine Protein 30 mg/dL (NEG-TRACE) Urine Glucose (UA) Negative mg/dL (NEG) Urine Ketones (Stick) Negative mg/dL (NEG) Urine Blood Negative (NEG) Urine Nitrite Negative (NEG) Urine Bilirubin Small (NEG) Urine Urobilinogen Dipstick 1.0 mg/dL (0.2 mg/dL) Urine Leukocyte Esterase Negative (NEG) Urine RBC 0 /HPF (0-2) Urine WBC 1-4 /HPF (0-4) Urine Squamous Epithelial Cells None /LPF Urine Bacteria 0 /HPF (0-FEW) Urine Mucus Mod /LPF Mycoplasma Serology (LAB) Negative (NEGATIVE) Test 10/07/16 03:10 White Blood Count 17.6 x10^3/uL (4.0-11.0) Red Blood Count 3.03 x10^6/uL (3.50-5.40) Hemoglobin 10.0 g/dL (12.0-15.5) Hematocrit 30.3 % (36.0-47.0) Mean Corpuscular Volume 100 fL (79-100) Mean Corpuscular Hemoglobin 33 pg (25-35) Mean Corpuscular Hemoglobin Concent 33 g/dL (31-37) Red Cell Distribution Width 13.2 % (11.5-14.5) Platelet Count 220 x10^3/uL (140-400) Neutrophils (%) (Auto) 92 % (31-73) Lymphocytes (%) (Auto) 5 % (24-48) Monocytes (%) (Auto) 2 % (0-9) Eosinophils (%) (Auto) 0 % (0-3) Basophils (%) (Auto) 0 % (0-3) Neutrophils # (Auto) 16.3 x10^3uL (1.8-7.7) Lymphocytes # (Auto) 0.9 x10^3/uL (1.0-4.8) Monocytes # (Auto) 0.4 x10^3/uL (0.0-1.1) Eosinophils # (Auto) 0.0 x10^3/uL (0.0-0.7) Basophils # (Auto) 0.0 x10^3/uL (0.0-0.2) Sodium Level 135 mmol/L (136-145) Potassium Level 3.4 mmol/L (3.5-5.1) Chloride Level 102 mmol/L (98-107) Carbon Dioxide Level 24 mmol/L (21-32) Anion Gap 9 (6-14) Blood Urea Nitrogen 14 mg/dL (7-20) Creatinine 1.0 mg/dL (0.6-1.0) Estimated GFR (Cockcroft-Gault) 53.1 Glucose Level 85 mg/dL (70-99) Calcium Level 7.8 mg/dL (8.5-10.1) Thyroid Stimulating Hormone (TSH) 4.248 uIU/mL (0.358-3.74) Laboratory Tests Test 10/07/16 03:10 White Blood Count 17.6 x10^3/uL (4.0-11.0) Red Blood Count 3.03 x10^6/uL (3.50-5.40) Hemoglobin 10.0 g/dL (12.0-15.5) Hematocrit 30.3 % (36.0-47.0) Mean Corpuscular Volume 100 fL (79-100) Mean Corpuscular Hemoglobin 33 pg (25-35) Mean Corpuscular Hemoglobin Concent 33 g/dL (31-37) Red Cell Distribution Width 13.2 % (11.5-14.5) Platelet Count 220 x10^3/uL (140-400) Neutrophils (%) (Auto) 92 % (31-73) Lymphocytes (%) (Auto) 5 % (24-48) Monocytes (%) (Auto) 2 % (0-9) Eosinophils (%) (Auto) 0 % (0-3) Basophils (%) (Auto) 0 % (0-3) Neutrophils # (Auto) 16.3 x10^3uL (1.8-7.7) Lymphocytes # (Auto) 0.9 x10^3/uL (1.0-4.8) Monocytes # (Auto) 0.4 x10^3/uL (0.0-1.1) Eosinophils # (Auto) 0.0 x10^3/uL (0.0-0.7) Basophils # (Auto) 0.0 x10^3/uL (0.0-0.2) Sodium Level 135 mmol/L (136-145) Potassium Level 3.4 mmol/L (3.5-5.1) Chloride Level 102 mmol/L (98-107) Carbon Dioxide Level 24 mmol/L (21-32) Anion Gap 9 (6-14) Blood Urea Nitrogen 14 mg/dL (7-20) Creatinine 1.0 mg/dL (0.6-1.0) Estimated GFR (Cockcroft-Gault) 53.1 Glucose Level 85 mg/dL (70-99) Calcium Level 7.8 mg/dL (8.5-10.1) Thyroid Stimulating Hormone (TSH) 4.248 uIU/mL (0.358-3.74) Medications Active Scripts Medications Dose Route/Sig Max Daily Dose Days Date Category Citalopram Hbr (Citalopram Hydrobromide) 20 Mg Tablet 1 Tab PO DAILY 10/06/16 Reported Hydroxychloroquine Sulfate 200 Mg Tablet 1 Tab PO BID 10/06/16 Reported Methotrexate (Methotrexate Sodium) 2.5 Mg Tablet 4 Tab PO WEEKLY 10/06/16 Reported Folic Acid 1 Mg Tablet 1 Tab PO DAILY 10/06/16 Reported Proair Hfa Inhaler (Albuterol Sulfate) 8.5 Gm Hfa.aer.ad 1 Puff INH QIDPRN PRN 10/06/16 Reported Tylenol (Acetaminophen) 325 Mg Tablet 650 Mg PO PRN Q4HRS PRN 04/15/15 Rx Prinivil (Lisinopril) 5 Mg Tablet 5 Mg PO DAILY 04/15/15 Rx Levothyroxine Sodium 75 Mcg Tablet 1 Tab PO DAILY 04/15/15 Rx Impression . 1. Persistent cough with weight loss and loss of appetite and progressive weakness in a patient with abnormal chest x-ray with right hilar fullness and also infiltrate in the right upper lobe. ct chest with no mass 2. No significant history of tobacco use. 3. Leukocytosis secondary to suspected post-obstructive pneumonia. 4. Hyponatremia could be related to SYSTEM SUPPORT ANALYST metastasis. 5. Blood in the stools. CT abdomen negative for any malignancy. Plan . 1. CT chest with no hilar mass . she does have RUL consolidation 2. Follow sodium level. 3. Continue present antibiotics. 4. DVT prophylaxis with Lovenox. 5. P.r.n. bronchodilators. 6. repeat cxr in few days. If no improvement, may need Bronch ANN MARIE HERNANDEZ MD October 07, 2016 11:40
[2016-10-07] MEDS: ENOXAPARIN 30 MG/0.3 ML SYRINGE. SQ SCH (16:01)
[2016-10-08] MEDS ORDERED: HALOPERIDOL LACTATE 5 MG/ML VIAL. IVP PRN
[2016-10-08 03:44] LABS: BASO % 0 % (0-3); EOS % 0 % (0-3); HEMATOCRIT 27.4 % (36.0-47.0); HEMOGLOBIN 9.1 g/dL (12.0-15.5); LYMPH # 0.9 x10^3/uL (1.0-4.8); LYMPH % 6 % (24-48); MEAN CORPUSCULAR HEMOGLOBIN 33 pg (25-35); MEAN CORPUSCULAR HGB CONC 33 g/dL (31-37); MEAN CORPUSCULAR VOLUME 99 fL (79-100); MONO % 4 % (0-9); NEUT % 89 % (31-73); PLATELET COUNT 242 x10^3/uL (140-400); RED BLOOD COUNT 2.76 x10^6/uL (3.50-5.40); RED CELL DISTRIBUTION WIDTH 13.5 % (11.5-14.5); WHITE BLOOD COUNT 13.9 x10^3/uL (4.0-11.0)
[2016-10-08 04:07] LABS: CALCIUM 7.8 mg/dL (8.5-10.1); CREATININE 0.9 mg/dL (0.6-1.0); GFR 59.9; POTASSIUM 3.6 mmol/L (3.5-5.1)
[2016-10-08] MEDS: LEVOTHYROXINE 75 MCG TABLET PO SCH (06:36)
[2016-10-08 07:00] VITALS: BP 120/53
[2016-10-08] MEDS: POLYETHYLENE GLYCOL 3350 17 GM PACKET. PO SCH (08:52)
[2016-10-08] MEDS: ASPIRIN ENTERIC COATED 81 MG TABLET.DR. PO SCH (08:53)
[2016-10-08] MEDS: CITALOPRAM 20 MG TABLET. PO SCH (08:53)
[2016-10-08 10:17] LABS: FREE T4 1.15 ng/dL (0.76-1.46)
[2016-10-08 11:00] VITALS: BP 120/52
--- NOTE | 2016-10-08 11:26 | PDOC ---
PROGRESS NOTES Chief Complaint Chief Complaint 1. SIRS, sepsis, sec to CAP 2. RUL PNA 3. HTN 4. Hypothyroidism on synthroid 5.Hyponatremia on Rustam inhib 6. 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 Poor pO, mod PCM 8, Hypokalemia sec to poor PO History of Present Illness History of Present Illness Fevers now 100.4 WBC 14 from 18 on admit Not eating - hsuband concerned Pt refusing appetite stimulant - was tried by PCP also before no avail Pulmo note reviewed, interval CXR, bronch might be needed if no signif improvement BC prelim neg\ Worked with PT yesterday - HH was recommended no UTI on UA SOme agitation last night - got haldol 2 mgs, calm now PLAN: Involve ID CBC again tami INterval CXR\ Bronch plans if no signif improvement STart procalamine as caloric agent TYlenol prn dw Vitals Vitals Vital Signs Date Time Temp Pulse Resp B/P (MAP) Pulse Ox O2 Delivery O2 Flow Rate FiO2 10/08/16 11:00 100.4 64 18 120/52 (74) 96 Room Air 100.4 Physical Exam General: Alert, Oriented X3, Cooperative, No acute distress Lungs: Clear Abdomen: Normal bowel sounds Extremities: No clubbing, No cyanosis, No edema, Normal pulses, No tenderness/ swelling Skin: No rashes, No breakdown, No significant lesion Labs LABS Laboratory Tests Test 10/08/16 03:25 White Blood Count 13.9 x10^3/uL (4.0-11.0) Red Blood Count 2.76 x10^6/uL (3.50-5.40) Hemoglobin 9.1 g/dL (12.0-15.5) Hematocrit 27.4 % (36.0-47.0) Mean Corpuscular Volume 99 fL (79-100) Mean Corpuscular Hemoglobin 33 pg (25-35) Mean Corpuscular Hemoglobin Concent 33 g/dL (31-37) Red Cell Distribution Width 13.5 % (11.5-14.5) Platelet Count 242 x10^3/uL (140-400) Neutrophils (%) (Auto) 89 % (31-73) Lymphocytes (%) (Auto) 6 % (24-48) Monocytes (%) (Auto) 4 % (0-9) Eosinophils (%) (Auto) 0 % (0-3) Basophils (%) (Auto) 0 % (0-3) Neutrophils # (Auto) 12.3 x10^3uL (1.8-7.7) Lymphocytes # (Auto) 0.9 x10^3/uL (1.0-4.8) Monocytes # (Auto) 0.6 x10^3/uL (0.0-1.1) Eosinophils # (Auto) 0.0 x10^3/uL (0.0-0.7) Basophils # (Auto) 0.0 x10^3/uL (0.0-0.2) Sodium Level 132 mmol/L (136-145) Potassium Level 3.6 mmol/L (3.5-5.1) Chloride Level 101 mmol/L (98-107) Carbon Dioxide Level 22 mmol/L (21-32) Anion Gap 9 (6-14) Blood Urea Nitrogen 14 mg/dL (7-20) Creatinine 0.9 mg/dL (0.6-1.0) Estimated GFR (Cockcroft-Gault) 59.9 Glucose Level 97 mg/dL (70-99) Calcium Level 7.8 mg/dL (8.5-10.1) Free Thyroxine 1.15 ng/dL (0.76-1.46) Free Triiodothyronine (T3) pg/mL < 0.50 pg/mL (2.18-3.98) Review of Systems Review of Systems asleep did not awaken per 's request Comment Review of Relevant I have reviewed the following items sandra (where applicable) has been applied. Labs Laboratory Tests Test 10/07/16 03:10 10/08/16 03:25 White Blood Count 17.6 x10^3/uL (4.0-11.0) 13.9 x10^3/uL (4.0-11.0) Red Blood Count 3.03 x10^6/uL (3.50-5.40) 2.76 x10^6/uL (3.50-5.40) Hemoglobin 10.0 g/dL (12.0-15.5) 9.1 g/dL (12.0-15.5) Hematocrit 30.3 % (36.0-47.0) 27.4 % (36.0-47.0) Mean Corpuscular Volume 100 fL (79-100) 99 fL (79-100) Mean Corpuscular Hemoglobin 33 pg (25-35) 33 pg (25-35) Mean Corpuscular Hemoglobin Concent 33 g/dL (31-37) 33 g/dL (31-37) Red Cell Distribution Width 13.2 % (11.5-14.5) 13.5 % (11.5-14.5) Platelet Count 220 x10^3/uL (140-400) 242 x10^3/uL (140-400) Neutrophils (%) (Auto) 92 % (31-73) 89 % (31-73) Lymphocytes (%) (Auto) 5 % (24-48) 6 % (24-48) Monocytes (%) (Auto) 2 % (0-9) 4 % (0-9) Eosinophils (%) (Auto) 0 % (0-3) 0 % (0-3) Basophils (%) (Auto) 0 % (0-3) 0 % (0-3) Neutrophils # (Auto) 16.3 x10^3uL (1.8-7.7) 12.3 x10^3uL (1.8-7.7) Lymphocytes # (Auto) 0.9 x10^3/uL (1.0-4.8) 0.9 x10^3/uL (1.0-4.8) Monocytes # (Auto) 0.4 x10^3/uL (0.0-1.1) 0.6 x10^3/uL (0.0-1.1) Eosinophils # (Auto) 0.0 x10^3/uL (0.0-0.7) 0.0 x10^3/uL (0.0-0.7) Basophils # (Auto) 0.0 x10^3/uL (0.0-0.2) 0.0 x10^3/uL (0.0-0.2) Sodium Level 135 mmol/L (136-145) 132 mmol/L (136-145) Potassium Level 3.4 mmol/L (3.5-5.1) 3.6 mmol/L (3.5-5.1) Chloride Level 102 mmol/L (98-107) 101 mmol/L (98-107) Carbon Dioxide Level 24 mmol/L (21-32) 22 mmol/L (21-32) Anion Gap 9 (6-14) 9 (6-14) Blood Urea Nitrogen 14 mg/dL (7-20) 14 mg/dL (7-20) Creatinine 1.0 mg/dL (0.6-1.0) 0.9 mg/dL (0.6-1.0) Estimated GFR (Cockcroft-Gault) 53.1 59.9 Glucose Level 85 mg/dL (70-99) 97 mg/dL (70-99) Calcium Level 7.8 mg/dL (8.5-10.1) 7.8 mg/dL (8.5-10.1) Thyroid Stimulating Hormone (TSH) 4.248 uIU/mL (0.358-3.74) Free Thyroxine 1.15 ng/dL (0.76-1.46) Free Triiodothyronine (T3) pg/mL < 0.50 pg/mL (2.18-3.98) Laboratory Tests Test 10/08/16 03:25 White Blood Count 13.9 x10^3/uL (4.0-11.0) Red Blood Count 2.76 x10^6/uL (3.50-5.40) Hemoglobin 9.1 g/dL (12.0-15.5) Hematocrit 27.4 % (36.0-47.0) Mean Corpuscular Volume 99 fL (79-100) Mean Corpuscular Hemoglobin 33 pg (25-35) Mean Corpuscular Hemoglobin Concent 33 g/dL (31-37) Red Cell Distribution Width 13.5 % (11.5-14.5) Platelet Count 242 x10^3/uL (140-400) Neutrophils (%) (Auto) 89 % (31-73) Lymphocytes (%) (Auto) 6 % (24-48) Monocytes (%) (Auto) 4 % (0-9) Eosinophils (%) (Auto) 0 % (0-3) Basophils (%) (Auto) 0 % (0-3) Neutrophils # (Auto) 12.3 x10^3uL (1.8-7.7) Lymphocytes # (Auto) 0.9 x10^3/uL (1.0-4.8) Monocytes # (Auto) 0.6 x10^3/uL (0.0-1.1) Eosinophils # (Auto) 0.0 x10^3/uL (0.0-0.7) Basophils # (Auto) 0.0 x10^3/uL (0.0-0.2) Sodium Level 132 mmol/L (136-145) Potassium Level 3.6 mmol/L (3.5-5.1) Chloride Level 101 mmol/L (98-107) Carbon Dioxide Level 22 mmol/L (21-32) Anion Gap 9 (6-14) Blood Urea Nitrogen 14 mg/dL (7-20) Creatinine 0.9 mg/dL (0.6-1.0) Estimated GFR (Cockcroft-Gault) 59.9 Glucose Level 97 mg/dL (70-99) Calcium Level 7.8 mg/dL (8.5-10.1) Free Thyroxine 1.15 ng/dL (0.76-1.46) Free Triiodothyronine (T3) pg/mL < 0.50 pg/mL (2.18-3.98) Microbiology 10/06/16 Blood Culture - Preliminary, Resulted NO GROWTH AFTER 2 DAYS Medications Current Medications Sodium Chloride 500 ml @ 500 mls/hr 1X ONCE IV ; Start 10/06/16 at 07:15; Stop 10/06/16 at 07:29; Status DC Acetaminophen (Tylenol) 1,000 mg 1X ONCE PO Last administered on 10/06/16 07: 49; Start 10/06/16 at 07:45; Stop 10/06/16 at 07:46; Status DC Sodium Chloride 1,000 ml @ 1,000 mls/hr 1X ONCE IV Last administered on 07:51; Start 10/06/16 at 07:45; Stop 10/06/16 at 08:44; Status DC Ondansetron HCl (Zofran) 4 mg 1X ONCE IV Last administered on 10/06/16 07:55; Start 10/06/16 at 08:00; Stop 10/06/16 at 08:06; Status DC Ondansetron HCl (Zofran) 4 mg STK-MED ONCE .ROUTE ; Start 10/06/16 at 07:53; Stop 10/06/16 at 07:54; Status DC Piperacillin Sod/ Tazobactam Sod (Zosyn Per Pharmacy) 1 each PRN DAILY PRN MC SEE COMMENTS; Start 10/06/16 at 08:15; Stop 10/06/16 at 08:15; Status DC Levofloxacin/ Dextrose (Levaquin Per Pharmacy) 1 each PRN DAILY PRN MC SEE COMMENTS; Start 10/06/16 at 08:15 Levofloxacin/ Dextrose 100 ml @ 100 mls/hr 1X ONCE IV Last administered on 09:29; Start 10/06/16 at 08:30; Stop 10/06/16 at 09:29; Status DC Iohexol (Omnipaque 300 Mg/ml) 75 ml 1X ONCE IV Last administered on 10/06/16 08:55; Start 10/06/16 at 08:30; Stop 10/06/16 at 08:31; Status DC Info (Do NOT chart on this entry -- for MONITORING) 1 each PRN DAILY PRN MC SEE COMMENTS; Start 10/06/16 at 08:30; Stop 10/08/16 at 08:29; Status DC Acetaminophen (Tylenol) 650 mg PRN Q4HRS PRN PO FEVER Last administered on 06:00; Start 10/06/16 at 09:00; Stop 10/07/16 at 08:59; Status DC Sodium Chloride 1,000 ml @ 1,000 mls/hr 1X ONCE IV Last administered on 09:29; Start 10/06/16 at 09:00; Stop 10/06/16 at 09:59; Status DC Levofloxacin/ Dextrose 150 ml @ 100 mls/hr Q48H IV Last administered on 08:29; Start 10/07/16 at 09:00 Ondansetron HCl (Zofran) 4 mg PRN Q6HRS PRN IV NAUSEA/VOMITING; Start 10/06/16 at 11:15 Aspirin (Ecotrin) 81 mg DAILYAC PO Last administered on 10/08/16 08:53; Start 10/06/16 at 11:30 Levothyroxine Sodium (Synthroid) 75 mcg DAILY06 PO Last administered on 06:36; Start 10/06/16 at 11:30 Lisinopril (Prinivil) 5 mg DAILY PO ; Start 10/06/16 at 11:30; Stop 10/06/16 at 15 :04; Status DC Enoxaparin Sodium (Lovenox 30mg Syringe) 30 mg DAILY16 SQ Last administered on 10/07/16 16:01; Start 10/06/16 at 16:00 Polyethylene Glycol (miraLAX PACKET) 17 gm DAILY PO Last administered on 08:28; Start 10/06/16 at 12:00 Magnesium Hydroxide (Milk Of Magnesia) 2,400 mg PRN DAILY PRN PO CONSTIPATION; Start 10/06/16 at 11:45 Citalopram Hydrobromide (CeleXA) 20 mg DAILY PO Last administered on 10/08/16 08:53; Start 10/06/16 at 15:30 Non-Formulary Medication 1 puff QIDPRN PRN INH SHORTNESS OF BREATH; Start at 15:00; Status UNV Albuterol Sulfate (Ventolin Neb Soln) 2.5 mg PRN QID PRN NEB SHORTNESS OF BREATH; Start 10/06/16 at 15:15 Sodium Chloride 1,000 ml @ 1,650 mls/hr Q37M IV ; Start 10/06/16 at 23:30; Stop 10/06/16 at 23:50; Status DC Sodium Chloride 1,000 ml @ 0 mls/hr 1X ONCE IV Last administered on 10/07/16 00:00; Start 10/07/16 at 00:00; Stop 10/07/16 at 00:01; Status DC Potassium Chloride (Klor-Con) 40 meq 1X ONCE PO Last administered on 10/07/16 09:53; Start 10/07/16 at 09:30; Stop 10/07/16 at 09:31; Status DC Ceftriaxone Sodium 1 gm/ Sodium Chloride 50 ml @ 100 mls/hr Q24H IV Last administered on 10/07/16 11:56; Start 10/07/16 at 12:00 Haloperidol Lactate (Haldol) 2 mg PRN Q4HRS PRN IVP AGITATION Last administered on 10/08/16 00:10; Start 10/08/16 at 00:00 Active Scripts Active Tylenol (Acetaminophen) 325 Mg Tablet 650 Mg PO PRN Q4HRS PRN Prinivil (Lisinopril) 5 Mg Tablet 5 Mg PO DAILY Levothyroxine Sodium 75 Mcg Tablet 1 Tab PO DAILY Reported Citalopram Hbr (Citalopram Hydrobromide) 20 Mg Tablet 1 Tab PO DAILY Hydroxychloroquine Sulfate 200 Mg Tablet 1 Tab PO BID Methotrexate (Methotrexate Sodium) 2.5 Mg Tablet 4 Tab PO WEEKLY Folic Acid 1 Mg Tablet 1 Tab PO DAILY Proair Hfa Inhaler (Albuterol Sulfate) 8.5 Gm Hfa.aer.ad 1 Puff INH QIDPRN PRN Vitals/I & O Vital Sign - Last 24 Hours 10/07/16 10/07/16 10/07/16 10/07/16 15:00 19:00 20:10 23:00 Temp 98.0 99.4 98.8 98.0 99.4 98.8 Pulse 68 79 71 Resp 16 18 18 B/P (MAP) 134/63 (86) 107/47 (67) 130/55 (80) Pulse Ox 97 96 100 O2 Delivery Room Air Room Air Room Air Room Air 10/08/16 10/08/16 10/08/16 07:00 08:00 11:00 Temp 97.9 100.4 97.9 100.4 Pulse 71 64 Resp 16 18 B/P (MAP) 120/53 (75) 120/52 (74) Pulse Ox 93 96 O2 Delivery Room Air Room Air Room Air ALLA PETER MD October 08, 2016 11:26
[2016-10-08] MEDS: AMINO AC 3%/ELECTROLYTE/GLYCER 1,000 ML IV SCH (11:42)
--- NOTE | 2016-10-08 12:36 | PDOC ---
Infectious Disease Note Vital Sign Vital Signs Vital Signs Date Time Temp Pulse Resp B/P (MAP) Pulse Ox O2 Delivery O2 Flow Rate FiO2 10/08/16 11:00 100.4 64 18 120/52 (74) 96 Room Air 100.4 Labs Lab Laboratory Tests Test 10/08/16 03:25 White Blood Count 13.9 x10^3/uL (4.0-11.0) Red Blood Count 2.76 x10^6/uL (3.50-5.40) Hemoglobin 9.1 g/dL (12.0-15.5) Hematocrit 27.4 % (36.0-47.0) Mean Corpuscular Volume 99 fL (79-100) Mean Corpuscular Hemoglobin 33 pg (25-35) Mean Corpuscular Hemoglobin Concent 33 g/dL (31-37) Red Cell Distribution Width 13.5 % (11.5-14.5) Platelet Count 242 x10^3/uL (140-400) Neutrophils (%) (Auto) 89 % (31-73) Lymphocytes (%) (Auto) 6 % (24-48) Monocytes (%) (Auto) 4 % (0-9) Eosinophils (%) (Auto) 0 % (0-3) Basophils (%) (Auto) 0 % (0-3) Neutrophils # (Auto) 12.3 x10^3uL (1.8-7.7) Lymphocytes # (Auto) 0.9 x10^3/uL (1.0-4.8) Monocytes # (Auto) 0.6 x10^3/uL (0.0-1.1) Eosinophils # (Auto) 0.0 x10^3/uL (0.0-0.7) Basophils # (Auto) 0.0 x10^3/uL (0.0-0.2) Sodium Level 132 mmol/L (136-145) Potassium Level 3.6 mmol/L (3.5-5.1) Chloride Level 101 mmol/L (98-107) Carbon Dioxide Level 22 mmol/L (21-32) Anion Gap 9 (6-14) Blood Urea Nitrogen 14 mg/dL (7-20) Creatinine 0.9 mg/dL (0.6-1.0) Estimated GFR (Cockcroft-Gault) 59.9 Glucose Level 97 mg/dL (70-99) Calcium Level 7.8 mg/dL (8.5-10.1) Free Thyroxine 1.15 ng/dL (0.76-1.46) Free Triiodothyronine (T3) pg/mL < 0.50 pg/mL (2.18-3.98) Objective Assessment CAP Fever Leukocytosis RA Lactic acidosis Plan Plan of Care change antibiotics to zosyn supportive care pt/ot if not better, then bronch d/w ROSA M Goodman MD October 08, 2016 12:36
--- NOTE | 2016-10-08 14:06 | PDOC ---
PULMONARY PROGRESS NOTES Subjective no soa, less cough, feels better. no pain, is tired Vitals Vital Signs Date Time Temp Pulse Resp B/P (MAP) Pulse Ox O2 Delivery O2 Flow Rate FiO2 10/08/16 11:00 100.4 64 18 120/52 (74) 96 Room Air 100.4 ROS: No Nausea, No Chest Pain, No Abdominal Pain General: Alert, No acute distress Lungs: Clear Cardiovascular: S1, S2 Abdomen: Soft Neuro Exam: Alert Extremities: No Edema Skin: Warm Labs Laboratory Tests Test 10/07/16 03:10 10/08/16 03:25 White Blood Count 17.6 x10^3/uL (4.0-11.0) 13.9 x10^3/uL (4.0-11.0) Red Blood Count 3.03 x10^6/uL (3.50-5.40) 2.76 x10^6/uL (3.50-5.40) Hemoglobin 10.0 g/dL (12.0-15.5) 9.1 g/dL (12.0-15.5) Hematocrit 30.3 % (36.0-47.0) 27.4 % (36.0-47.0) Mean Corpuscular Volume 100 fL (79-100) 99 fL (79-100) Mean Corpuscular Hemoglobin 33 pg (25-35) 33 pg (25-35) Mean Corpuscular Hemoglobin Concent 33 g/dL (31-37) 33 g/dL (31-37) Red Cell Distribution Width 13.2 % (11.5-14.5) 13.5 % (11.5-14.5) Platelet Count 220 x10^3/uL (140-400) 242 x10^3/uL (140-400) Neutrophils (%) (Auto) 92 % (31-73) 89 % (31-73) Lymphocytes (%) (Auto) 5 % (24-48) 6 % (24-48) Monocytes (%) (Auto) 2 % (0-9) 4 % (0-9) Eosinophils (%) (Auto) 0 % (0-3) 0 % (0-3) Basophils (%) (Auto) 0 % (0-3) 0 % (0-3) Neutrophils # (Auto) 16.3 x10^3uL (1.8-7.7) 12.3 x10^3uL (1.8-7.7) Lymphocytes # (Auto) 0.9 x10^3/uL (1.0-4.8) 0.9 x10^3/uL (1.0-4.8) Monocytes # (Auto) 0.4 x10^3/uL (0.0-1.1) 0.6 x10^3/uL (0.0-1.1) Eosinophils # (Auto) 0.0 x10^3/uL (0.0-0.7) 0.0 x10^3/uL (0.0-0.7) Basophils # (Auto) 0.0 x10^3/uL (0.0-0.2) 0.0 x10^3/uL (0.0-0.2) Sodium Level 135 mmol/L (136-145) 132 mmol/L (136-145) Potassium Level 3.4 mmol/L (3.5-5.1) 3.6 mmol/L (3.5-5.1) Chloride Level 102 mmol/L (98-107) 101 mmol/L (98-107) Carbon Dioxide Level 24 mmol/L (21-32) 22 mmol/L (21-32) Anion Gap 9 (6-14) 9 (6-14) Blood Urea Nitrogen 14 mg/dL (7-20) 14 mg/dL (7-20) Creatinine 1.0 mg/dL (0.6-1.0) 0.9 mg/dL (0.6-1.0) Estimated GFR (Cockcroft-Gault) 53.1 59.9 Glucose Level 85 mg/dL (70-99) 97 mg/dL (70-99) Calcium Level 7.8 mg/dL (8.5-10.1) 7.8 mg/dL (8.5-10.1) Thyroid Stimulating Hormone (TSH) 4.248 uIU/mL (0.358-3.74) Free Thyroxine 1.15 ng/dL (0.76-1.46) Free Triiodothyronine (T3) pg/mL < 0.50 pg/mL (2.18-3.98) Laboratory Tests Test 10/08/16 03:25 White Blood Count 13.9 x10^3/uL (4.0-11.0) Red Blood Count 2.76 x10^6/uL (3.50-5.40) Hemoglobin 9.1 g/dL (12.0-15.5) Hematocrit 27.4 % (36.0-47.0) Mean Corpuscular Volume 99 fL (79-100) Mean Corpuscular Hemoglobin 33 pg (25-35) Mean Corpuscular Hemoglobin Concent 33 g/dL (31-37) Red Cell Distribution Width 13.5 % (11.5-14.5) Platelet Count 242 x10^3/uL (140-400) Neutrophils (%) (Auto) 89 % (31-73) Lymphocytes (%) (Auto) 6 % (24-48) Monocytes (%) (Auto) 4 % (0-9) Eosinophils (%) (Auto) 0 % (0-3) Basophils (%) (Auto) 0 % (0-3) Neutrophils # (Auto) 12.3 x10^3uL (1.8-7.7) Lymphocytes # (Auto) 0.9 x10^3/uL (1.0-4.8) Monocytes # (Auto) 0.6 x10^3/uL (0.0-1.1) Eosinophils # (Auto) 0.0 x10^3/uL (0.0-0.7) Basophils # (Auto) 0.0 x10^3/uL (0.0-0.2) Sodium Level 132 mmol/L (136-145) Potassium Level 3.6 mmol/L (3.5-5.1) Chloride Level 101 mmol/L (98-107) Carbon Dioxide Level 22 mmol/L (21-32) Anion Gap 9 (6-14) Blood Urea Nitrogen 14 mg/dL (7-20) Creatinine 0.9 mg/dL (0.6-1.0) Estimated GFR (Cockcroft-Gault) 59.9 Glucose Level 97 mg/dL (70-99) Calcium Level 7.8 mg/dL (8.5-10.1) Free Thyroxine 1.15 ng/dL (0.76-1.46) Free Triiodothyronine (T3) pg/mL < 0.50 pg/mL (2.18-3.98) Medications Active Scripts Medications Dose Route/Sig Max Daily Dose Days Date Category Citalopram Hbr (Citalopram Hydrobromide) 20 Mg Tablet 1 Tab PO DAILY 10/06/16 Reported Hydroxychloroquine Sulfate 200 Mg Tablet 1 Tab PO BID 10/06/16 Reported Methotrexate (Methotrexate Sodium) 2.5 Mg Tablet 4 Tab PO WEEKLY 10/06/16 Reported Folic Acid 1 Mg Tablet 1 Tab PO DAILY 10/06/16 Reported Proair Hfa Inhaler (Albuterol Sulfate) 8.5 Gm Hfa.aer.ad 1 Puff INH QIDPRN PRN 10/06/16 Reported Tylenol (Acetaminophen) 325 Mg Tablet 650 Mg PO PRN Q4HRS PRN 04/15/15 Rx Prinivil (Lisinopril) 5 Mg Tablet 5 Mg PO DAILY 04/15/15 Rx Levothyroxine Sodium 75 Mcg Tablet 1 Tab PO DAILY 04/15/15 Rx Impression . 1. Persistent cough with weight loss and loss of appetite and progressive weakness in a patient with abnormal chest x-ray with right hilar fullness and also infiltrate in the right upper lobe. ct chest with no mass 2. No significant history of tobacco use. 3. Leukocytosis secondary to suspected post-obstructive pneumonia. 4. Hyponatremia could be related to RADIOLOGY DIRECTOR metastasis. 5. Blood in the stools. CT abdomen negative for any malignancy. Plan . 1. CT chest with no hilar mass . she does have RUL consolidation 2. Follow sodium level. 3. zosyn. 4. DVT prophylaxis with Lovenox. 5. P.r.n. bronchodilators. 6. repeat cxr in few days. If no improvement, may need Bronch clinically improving, monitor closely discussed w pt and family in details CALLI JOHNSON MD October 08, 2016 14:06
[2016-10-08 15:00] VITALS: BP 132/58
[2016-10-08] MEDS: PIPERACILLIN/TAZOBACTAM 3.375 GM in IV NORMAL SALINE 50ML 50 ML IV SCH (17:23)
[2016-10-08] MEDS: ENOXAPARIN 30 MG/0.3 ML SYRINGE. SQ SCH (17:23)
[2016-10-08 19:38] VITALS: BP 143/60
[2016-10-08 22:38] VITALS: BP 137/59
[2016-10-09] MEDS: AMINO AC 3%/ELECTROLYTE/GLYCER 1,000 ML IV SCH ×2 (00:37→14:30)
[2016-10-09] MEDS: PIPERACILLIN/TAZOBACTAM 3.375 GM in IV NORMAL SALINE 50ML 50 ML IV SCH ×4 (00:37→19:21)
--- NOTE | 2016-10-09 01:57 | CONS ---
DATE OF CONSULTATION: 10/08/2016 REQUESTING PHYSICIAN: Dr. Prado. REASON FOR CONSULTATION: Continued fever and leukocytosis in a patient with pneumonia. HISTORY OF PRESENT ILLNESS: This is an 81-year-old female who has a history of rheumatoid arthritis, who is on methotrexate, who has been seen by a physician a day before her sickness without any problem. The next day she was very weak, fatigued, may be hunched over, according to the and had some shortness of breath. The patient also when she was brought in, she had fever. The patient was diagnosed by chest x-ray and then CT with a dense right upper lobe infiltrate. No mass seen. The patient, today is the first day she is feeling better. She is eating a little bit, although she is not hypoxic, not requiring any oxygen, minimal cough and continued to have fever, today 100.4. The patient also had leukocytosis 18,000 when she came in, now it is down to 13,000. The patient has been receiving Rocephin and Levaquin. Legionella and mycoplasma has been negative. PAST MEDICAL HISTORY: Positive for hypertension, hyperlipidemia, rheumatoid arthritis, mild dementia, urinary incontinence, hypothyroidism. PAST SURGICAL HISTORY: Appendicectomy, hysterectomy and cholecystectomy. SOCIAL HISTORY: Negative for smoking, alcohol, or illicit drug use. Lives with her . ALLERGIES: No known drug allergies. CURRENT MEDICATIONS: Reviewed. The patient is on Rocephin and levofloxacin. REVIEW OF SYSTEMS: As per HPI, all other systems reviewed are negative. PHYSICAL EXAMINATION: GENERAL: Alert, oriented female, not in distress. VITAL SIGNS: Stable with a T-max 100.4. HEENT: NAD. NECK: Supple, no JVP, no lymphadenopathy. LUNGS: Decreased breath sounds in the right upper chest. Rest clear. HEART: S1, S2, regular. ABDOMEN: Benign. EXTREMITIES: No edema or cyanosis. SKIN: Unremarkable. NEUROLOGIC: The patient is neurologically intact. LABORATORY DATA: White count is 13.9, hemoglobin 9.1, platelets are normal. BUN and creatinine is normal. When she came in, lactic acid was 2.7. Urinalysis is negative. Legionella and mycoplasma is negative. Blood culture is negative. Sputum, she is not coughing enough producing to be able to get the sputum. CT chest showed dense right upper lobe infiltrate, no mass seen. IMPRESSION: 1. Community-acquired pneumonia is rather unusual as the CT findings are very impressive and she is not looking that bad, not hypoxic, and she continues to have fever. 2. Fever. 3. Leukocytosis. 4. Rheumatoid arthritis. 5. Lactic acidosis. RECOMMENDATIONS: Change antibiotics to Zosyn. Supportive care, PT, OT. If not better, then we will bronch her. Her probability of MRSA is very low, but endobronchial lesion causing blockage is a possibility. Thank you very much, Dr. Prado, for giving me the opportunity to participate in this patient's care. Detailed discussion with done at the bedside. ROSA M GONZALEZ MD DR: CASH/juan JOB#: [id number] / [id number]
[2016-10-09 03:00] VITALS: BP 122/55
[2016-10-09 05:37] LABS: BASO % 0 % (0-3); EOS % 0 % (0-3); HEMATOCRIT 27.5 % (36.0-47.0); HEMOGLOBIN 9.2 g/dL (12.0-15.5); LYMPH # 1.3 x10^3/uL (1.0-4.8); LYMPH % 13 % (24-48); MEAN CORPUSCULAR HEMOGLOBIN 33 pg (25-35); MEAN CORPUSCULAR HGB CONC 33 g/dL (31-37); MEAN CORPUSCULAR VOLUME 100 fL (79-100); MONO % 7 % (0-9); NEUT % 80 % (31-73); PLATELET COUNT 290 x10^3/uL (140-400); RED BLOOD COUNT 2.75 x10^6/uL (3.50-5.40); RED CELL DISTRIBUTION WIDTH 13.4 % (11.5-14.5)
[2016-10-09 05:54] LABS: CALCIUM 7.9 mg/dL (8.5-10.1); CREATININE 0.8 mg/dL (0.6-1.0); GFR 68.7; POTASSIUM 3.8 mmol/L (3.5-5.1)
[2016-10-09] MEDS: LEVOTHYROXINE 75 MCG TABLET PO SCH (06:21)
[2016-10-09 07:25] VITALS: BP 127/56
[2016-10-09] MEDS: POLYETHYLENE GLYCOL 3350 17 GM PACKET. PO SCH (08:09)
[2016-10-09] MEDS: CITALOPRAM 20 MG TABLET. PO SCH (08:09)
[2016-10-09] MEDS: ASPIRIN ENTERIC COATED 81 MG TABLET.DR. PO SCH (08:09)
--- NOTE | 2016-10-09 10:14 | PDOC ---
Infectious Disease Note Subjective Subjective Feeling great, Appetite good, eating Ambulating Dry cough, improving No fever so far today ROS ROS GEN: Denies chills, sweats HEENT: Denies sore throat CV: Denies chest pain RESP: Denies shortness of air GI: Denies n/v/d NEURO: Denies confusion, dizziness MSK: Denies weakness, joint pain/swelling Vital Sign Vital Signs Vital Signs Date Time Temp Pulse Resp B/P (MAP) Pulse Ox O2 Delivery O2 Flow Rate FiO2 10/09/16 07:43 Room Air 10/09/16 07:25 98.5 64 18 127/56 (79) 93 98.5 Physical Exam PHYSICAL EXAM GENERAL: Propped up in bed, smiling, reading HEENT: PERRL, OC/OP pink and moist NECK: Supple, no JVD, no LN LUNGS: Clear, nonlabored HEART: S1S2 ABD: Soft, NT, BS present EXT: No edema, no cyanosis. 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: Alert, oriented x 3, no focal neurologic deficit SKIN: No rash IV: ok Labs Lab Laboratory Tests Test 10/09/16 05:00 White Blood Count 10.0 x10^3/uL (4.0-11.0) Red Blood Count 2.75 x10^6/uL (3.50-5.40) Hemoglobin 9.2 g/dL (12.0-15.5) Hematocrit 27.5 % (36.0-47.0) Mean Corpuscular Volume 100 fL (79-100) Mean Corpuscular Hemoglobin 33 pg (25-35) Mean Corpuscular Hemoglobin Concent 33 g/dL (31-37) Red Cell Distribution Width 13.4 % (11.5-14.5) Platelet Count 290 x10^3/uL (140-400) Neutrophils (%) (Auto) 80 % (31-73) Lymphocytes (%) (Auto) 13 % (24-48) Monocytes (%) (Auto) 7 % (0-9) Eosinophils (%) (Auto) 0 % (0-3) Basophils (%) (Auto) 0 % (0-3) Neutrophils # (Auto) 8.0 x10^3uL (1.8-7.7) Lymphocytes # (Auto) 1.3 x10^3/uL (1.0-4.8) Monocytes # (Auto) 0.7 x10^3/uL (0.0-1.1) Eosinophils # (Auto) 0.0 x10^3/uL (0.0-0.7) Basophils # (Auto) 0.0 x10^3/uL (0.0-0.2) Sodium Level 133 mmol/L (136-145) Potassium Level 3.8 mmol/L (3.5-5.1) Chloride Level 101 mmol/L (98-107) Carbon Dioxide Level 24 mmol/L (21-32) Anion Gap 8 (6-14) Blood Urea Nitrogen 15 mg/dL (7-20) Creatinine 0.8 mg/dL (0.6-1.0) Estimated GFR (Cockcroft-Gault) 68.7 Glucose Level 96 mg/dL (70-99) Calcium Level 7.9 mg/dL (8.5-10.1) Micro BLOOD CULTURE Preliminary NO GROWTH AFTER 3 DAYS Objective Assessment CAP. RUL consolidation on CT Fever, better Leukocytosis, better RA Lactic acidosis, better Plan Plan of Care Zosyn supportive care PT/OT to help maintain strength and mobility. Currently ambulating with PT in [facility] d/w daughter Attending Co-Sign Attending Co-Sign The patient was seen and interviewed as well as examined at the bedside. The chart was reviewed. The case was discussed. Agree with the plan of care. CHELSEA GILLILAND APRN October 09, 2016 10:14 CJ HERNANDEZ MD October 09, 2016 14:15
--- NOTE | 2016-10-09 10:25 | PDOC ---
PULMONARY PROGRESS NOTES Subjective no soa, not much cough, feels much better. no pain, Vitals Vital Signs Date Time Temp Pulse Resp B/P (MAP) Pulse Ox O2 Delivery O2 Flow Rate FiO2 10/09/16 07:43 Room Air 10/09/16 07:25 98.5 64 18 127/56 (79) 93 98.5 ROS: No Nausea, No Chest Pain, No Abdominal Pain General: Alert, No acute distress Lungs: Clear Cardiovascular: S1, S2 Abdomen: Soft Neuro Exam: Alert Extremities: No Edema Skin: Warm Labs Laboratory Tests Test 10/08/16 03:25 10/09/16 05:00 White Blood Count 13.9 x10^3/uL (4.0-11.0) 10.0 x10^3/uL (4.0-11.0) Red Blood Count 2.76 x10^6/uL (3.50-5.40) 2.75 x10^6/uL (3.50-5.40) Hemoglobin 9.1 g/dL (12.0-15.5) 9.2 g/dL (12.0-15.5) Hematocrit 27.4 % (36.0-47.0) 27.5 % (36.0-47.0) Mean Corpuscular Volume 99 fL (79-100) 100 fL (79-100) Mean Corpuscular Hemoglobin 33 pg (25-35) 33 pg (25-35) Mean Corpuscular Hemoglobin Concent 33 g/dL (31-37) 33 g/dL (31-37) Red Cell Distribution Width 13.5 % (11.5-14.5) 13.4 % (11.5-14.5) Platelet Count 242 x10^3/uL (140-400) 290 x10^3/uL (140-400) Neutrophils (%) (Auto) 89 % (31-73) 80 % (31-73) Lymphocytes (%) (Auto) 6 % (24-48) 13 % (24-48) Monocytes (%) (Auto) 4 % (0-9) 7 % (0-9) Eosinophils (%) (Auto) 0 % (0-3) 0 % (0-3) Basophils (%) (Auto) 0 % (0-3) 0 % (0-3) Neutrophils # (Auto) 12.3 x10^3uL (1.8-7.7) 8.0 x10^3uL (1.8-7.7) Lymphocytes # (Auto) 0.9 x10^3/uL (1.0-4.8) 1.3 x10^3/uL (1.0-4.8) Monocytes # (Auto) 0.6 x10^3/uL (0.0-1.1) 0.7 x10^3/uL (0.0-1.1) Eosinophils # (Auto) 0.0 x10^3/uL (0.0-0.7) 0.0 x10^3/uL (0.0-0.7) Basophils # (Auto) 0.0 x10^3/uL (0.0-0.2) 0.0 x10^3/uL (0.0-0.2) Sodium Level 132 mmol/L (136-145) 133 mmol/L (136-145) Potassium Level 3.6 mmol/L (3.5-5.1) 3.8 mmol/L (3.5-5.1) Chloride Level 101 mmol/L (98-107) 101 mmol/L (98-107) Carbon Dioxide Level 22 mmol/L (21-32) 24 mmol/L (21-32) Anion Gap 9 (6-14) 8 (6-14) Blood Urea Nitrogen 14 mg/dL (7-20) 15 mg/dL (7-20) Creatinine 0.9 mg/dL (0.6-1.0) 0.8 mg/dL (0.6-1.0) Estimated GFR (Cockcroft-Gault) 59.9 68.7 Glucose Level 97 mg/dL (70-99) 96 mg/dL (70-99) Calcium Level 7.8 mg/dL (8.5-10.1) 7.9 mg/dL (8.5-10.1) Free Thyroxine 1.15 ng/dL (0.76-1.46) Free Triiodothyronine (T3) pg/mL < 0.50 pg/mL (2.18-3.98) Laboratory Tests Test 10/09/16 05:00 White Blood Count 10.0 x10^3/uL (4.0-11.0) Red Blood Count 2.75 x10^6/uL (3.50-5.40) Hemoglobin 9.2 g/dL (12.0-15.5) Hematocrit 27.5 % (36.0-47.0) Mean Corpuscular Volume 100 fL (79-100) Mean Corpuscular Hemoglobin 33 pg (25-35) Mean Corpuscular Hemoglobin Concent 33 g/dL (31-37) Red Cell Distribution Width 13.4 % (11.5-14.5) Platelet Count 290 x10^3/uL (140-400) Neutrophils (%) (Auto) 80 % (31-73) Lymphocytes (%) (Auto) 13 % (24-48) Monocytes (%) (Auto) 7 % (0-9) Eosinophils (%) (Auto) 0 % (0-3) Basophils (%) (Auto) 0 % (0-3) Neutrophils # (Auto) 8.0 x10^3uL (1.8-7.7) Lymphocytes # (Auto) 1.3 x10^3/uL (1.0-4.8) Monocytes # (Auto) 0.7 x10^3/uL (0.0-1.1) Eosinophils # (Auto) 0.0 x10^3/uL (0.0-0.7) Basophils # (Auto) 0.0 x10^3/uL (0.0-0.2) Sodium Level 133 mmol/L (136-145) Potassium Level 3.8 mmol/L (3.5-5.1) Chloride Level 101 mmol/L (98-107) Carbon Dioxide Level 24 mmol/L (21-32) Anion Gap 8 (6-14) Blood Urea Nitrogen 15 mg/dL (7-20) Creatinine 0.8 mg/dL (0.6-1.0) Estimated GFR (Cockcroft-Gault) 68.7 Glucose Level 96 mg/dL (70-99) Calcium Level 7.9 mg/dL (8.5-10.1) Medications Active Scripts Medications Dose Route/Sig Max Daily Dose Days Date Category Citalopram Hbr (Citalopram Hydrobromide) 20 Mg Tablet 1 Tab PO DAILY 10/06/16 Reported Hydroxychloroquine Sulfate 200 Mg Tablet 1 Tab PO BID 10/06/16 Reported Methotrexate (Methotrexate Sodium) 2.5 Mg Tablet 4 Tab PO WEEKLY 10/06/16 Reported Folic Acid 1 Mg Tablet 1 Tab PO DAILY 10/06/16 Reported Proair Hfa Inhaler (Albuterol Sulfate) 8.5 Gm Hfa.aer.ad 1 Puff INH QIDPRN PRN 10/06/16 Reported Tylenol (Acetaminophen) 325 Mg Tablet 650 Mg PO PRN Q4HRS PRN 04/15/15 Rx Prinivil (Lisinopril) 5 Mg Tablet 5 Mg PO DAILY 04/15/15 Rx Levothyroxine Sodium 75 Mcg Tablet 1 Tab PO DAILY 04/15/[address] reviewed, Dense consolidation in the right upper lobe compatible with pneumonia. Impression . 1. Persistent cough with weight loss and loss of appetite and progressive weakness in a patient with abnormal chest x-ray with right hilar fullness and also infiltrate in the right upper lobe. ct chest with no mass 2. No significant history of tobacco use. 3. Leukocytosis secondary to suspected post-obstructive pneumonia. 4. Hyponatremia 5. Blood in the stools. CT abdomen negative for any malignancy. Plan . 1. CT chest with no hilar mass . she does have RUL consolidation, wants to go home. ok to go home, abx per id. she will need a fu chest ct in 4-6 wks and fu w dr peña. 2. Follow sodium level. 3. zosyn. abx per id 4. DVT prophylaxis with Lovenox. 5. P.r.n. bronchodilators. 6. discussed w pt, her and rn CALLI JOHNSON MD October 09, 2016 10:25
[2016-10-09 11:31] VITALS: BP 115/52
--- NOTE | 2016-10-09 11:33 | PDOC ---
PROGRESS NOTES Chief Complaint Chief Complaint 1. SIRS, sepsis, sec to CAP 2. RUL PNA 3. HTN 4. Hypothyroidism on synthroid 5.Hyponatremia on Rustam inhib 6. 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 Poor pO, mod PCM 8, Hypokalemia sec to poor PO History of Present Illness History of Present Illness fevers yesterday 100.4 at 3 pM WBC down to 10 Shifted to zosyn Was on MTX and plaquenil (immunosuppressed) Wants to go home tami PLAN: CPM PLanned for home tami Rpt CT 4-6 weeks Pulmo ff up as OP in 4-6 weeks Dw again Vitals Vitals Vital Signs Date Time Temp Pulse Resp B/P (MAP) Pulse Ox O2 Delivery O2 Flow Rate FiO2 10/09/16 07:43 Room Air 10/09/16 07:25 98.5 64 18 127/56 (79) 93 98.5 Physical Exam General: Alert, Oriented X3, Cooperative, No acute distress Lungs: Clear Abdomen: Normal bowel sounds Extremities: No clubbing, No cyanosis, No edema, Normal pulses, No tenderness/ swelling Skin: No rashes, No breakdown, No significant lesion Labs LABS Laboratory Tests Test 10/09/16 05:00 White Blood Count 10.0 x10^3/uL (4.0-11.0) Red Blood Count 2.75 x10^6/uL (3.50-5.40) Hemoglobin 9.2 g/dL (12.0-15.5) Hematocrit 27.5 % (36.0-47.0) Mean Corpuscular Volume 100 fL (79-100) Mean Corpuscular Hemoglobin 33 pg (25-35) Mean Corpuscular Hemoglobin Concent 33 g/dL (31-37) Red Cell Distribution Width 13.4 % (11.5-14.5) Platelet Count 290 x10^3/uL (140-400) Neutrophils (%) (Auto) 80 % (31-73) Lymphocytes (%) (Auto) 13 % (24-48) Monocytes (%) (Auto) 7 % (0-9) Eosinophils (%) (Auto) 0 % (0-3) Basophils (%) (Auto) 0 % (0-3) Neutrophils # (Auto) 8.0 x10^3uL (1.8-7.7) Lymphocytes # (Auto) 1.3 x10^3/uL (1.0-4.8) Monocytes # (Auto) 0.7 x10^3/uL (0.0-1.1) Eosinophils # (Auto) 0.0 x10^3/uL (0.0-0.7) Basophils # (Auto) 0.0 x10^3/uL (0.0-0.2) Sodium Level 133 mmol/L (136-145) Potassium Level 3.8 mmol/L (3.5-5.1) Chloride Level 101 mmol/L (98-107) Carbon Dioxide Level 24 mmol/L (21-32) Anion Gap 8 (6-14) Blood Urea Nitrogen 15 mg/dL (7-20) Creatinine 0.8 mg/dL (0.6-1.0) Estimated GFR (Cockcroft-Gault) 68.7 Glucose Level 96 mg/dL (70-99) Calcium Level 7.9 mg/dL (8.5-10.1) Review of Systems Review of Systems denies inc in soa, cp, phlegm, no fevers today Comment Review of Relevant I have reviewed the following items sandra (where applicable) has been applied. Labs Laboratory Tests Test 10/08/16 03:25 10/09/16 05:00 White Blood Count 13.9 x10^3/uL (4.0-11.0) 10.0 x10^3/uL (4.0-11.0) Red Blood Count 2.76 x10^6/uL (3.50-5.40) 2.75 x10^6/uL (3.50-5.40) Hemoglobin 9.1 g/dL (12.0-15.5) 9.2 g/dL (12.0-15.5) Hematocrit 27.4 % (36.0-47.0) 27.5 % (36.0-47.0) Mean Corpuscular Volume 99 fL (79-100) 100 fL (79-100) Mean Corpuscular Hemoglobin 33 pg (25-35) 33 pg (25-35) Mean Corpuscular Hemoglobin Concent 33 g/dL (31-37) 33 g/dL (31-37) Red Cell Distribution Width 13.5 % (11.5-14.5) 13.4 % (11.5-14.5) Platelet Count 242 x10^3/uL (140-400) 290 x10^3/uL (140-400) Neutrophils (%) (Auto) 89 % (31-73) 80 % (31-73) Lymphocytes (%) (Auto) 6 % (24-48) 13 % (24-48) Monocytes (%) (Auto) 4 % (0-9) 7 % (0-9) Eosinophils (%) (Auto) 0 % (0-3) 0 % (0-3) Basophils (%) (Auto) 0 % (0-3) 0 % (0-3) Neutrophils # (Auto) 12.3 x10^3uL (1.8-7.7) 8.0 x10^3uL (1.8-7.7) Lymphocytes # (Auto) 0.9 x10^3/uL (1.0-4.8) 1.3 x10^3/uL (1.0-4.8) Monocytes # (Auto) 0.6 x10^3/uL (0.0-1.1) 0.7 x10^3/uL (0.0-1.1) Eosinophils # (Auto) 0.0 x10^3/uL (0.0-0.7) 0.0 x10^3/uL (0.0-0.7) Basophils # (Auto) 0.0 x10^3/uL (0.0-0.2) 0.0 x10^3/uL (0.0-0.2) Sodium Level 132 mmol/L (136-145) 133 mmol/L (136-145) Potassium Level 3.6 mmol/L (3.5-5.1) 3.8 mmol/L (3.5-5.1) Chloride Level 101 mmol/L (98-107) 101 mmol/L (98-107) Carbon Dioxide Level 22 mmol/L (21-32) 24 mmol/L (21-32) Anion Gap 9 (6-14) 8 (6-14) Blood Urea Nitrogen 14 mg/dL (7-20) 15 mg/dL (7-20) Creatinine 0.9 mg/dL (0.6-1.0) 0.8 mg/dL (0.6-1.0) Estimated GFR (Cockcroft-Gault) 59.9 68.7 Glucose Level 97 mg/dL (70-99) 96 mg/dL (70-99) Calcium Level 7.8 mg/dL (8.5-10.1) 7.9 mg/dL (8.5-10.1) Free Thyroxine 1.15 ng/dL (0.76-1.46) Free Triiodothyronine (T3) pg/mL < 0.50 pg/mL (2.18-3.98) Laboratory Tests Test 10/09/16 05:00 White Blood Count 10.0 x10^3/uL (4.0-11.0) Red Blood Count 2.75 x10^6/uL (3.50-5.40) Hemoglobin 9.2 g/dL (12.0-15.5) Hematocrit 27.5 % (36.0-47.0) Mean Corpuscular Volume 100 fL (79-100) Mean Corpuscular Hemoglobin 33 pg (25-35) Mean Corpuscular Hemoglobin Concent 33 g/dL (31-37) Red Cell Distribution Width 13.4 % (11.5-14.5) Platelet Count 290 x10^3/uL (140-400) Neutrophils (%) (Auto) 80 % (31-73) Lymphocytes (%) (Auto) 13 % (24-48) Monocytes (%) (Auto) 7 % (0-9) Eosinophils (%) (Auto) 0 % (0-3) Basophils (%) (Auto) 0 % (0-3) Neutrophils # (Auto) 8.0 x10^3uL (1.8-7.7) Lymphocytes # (Auto) 1.3 x10^3/uL (1.0-4.8) Monocytes # (Auto) 0.7 x10^3/uL (0.0-1.1) Eosinophils # (Auto) 0.0 x10^3/uL (0.0-0.7) Basophils # (Auto) 0.0 x10^3/uL (0.0-0.2) Sodium Level 133 mmol/L (136-145) Potassium Level 3.8 mmol/L (3.5-5.1) Chloride Level 101 mmol/L (98-107) Carbon Dioxide Level 24 mmol/L (21-32) Anion Gap 8 (6-14) Blood Urea Nitrogen 15 mg/dL (7-20) Creatinine 0.8 mg/dL (0.6-1.0) Estimated GFR (Cockcroft-Gault) 68.7 Glucose Level 96 mg/dL (70-99) Calcium Level 7.9 mg/dL (8.5-10.1) Microbiology 10/06/16 Blood Culture - Preliminary, Resulted NO GROWTH AFTER 3 DAYS Medications Current Medications Sodium Chloride 500 ml @ 500 mls/hr 1X ONCE IV ; Start 10/06/16 at 07:15; Stop 10/06/16 at 07:29; Status DC Acetaminophen (Tylenol) 1,000 mg 1X ONCE PO Last administered on 10/06/16 07: 49; Start 10/06/16 at 07:45; Stop 10/06/16 at 07:46; Status DC Sodium Chloride 1,000 ml @ 1,000 mls/hr 1X ONCE IV Last administered on 07:51; Start 10/06/16 at 07:45; Stop 10/06/16 at 08:44; Status DC Ondansetron HCl (Zofran) 4 mg 1X ONCE IV Last administered on 10/06/16 07:55; Start 10/06/16 at 08:00; Stop 10/06/16 at 08:06; Status DC Ondansetron HCl (Zofran) 4 mg STK-MED ONCE .ROUTE ; Start 10/06/16 at 07:53; Stop 10/06/16 at 07:54; Status DC Piperacillin Sod/ Tazobactam Sod (Zosyn Per Pharmacy) 1 each PRN DAILY PRN MC SEE COMMENTS; Start 10/06/16 at 08:15; Stop 10/06/16 at 08:15; Status DC Levofloxacin/ Dextrose (Levaquin Per Pharmacy) 1 each PRN DAILY PRN MC SEE COMMENTS; Start 10/06/16 at 08:15; Stop 10/08/16 at 12:35; Status DC Levofloxacin/ Dextrose 100 ml @ 100 mls/hr 1X ONCE IV Last administered on 09:29; Start 10/06/16 at 08:30; Stop 10/06/16 at 09:29; Status DC Iohexol (Omnipaque 300 Mg/ml) 75 ml 1X ONCE IV Last administered on 10/06/16 08:55; Start 10/06/16 at 08:30; Stop 10/06/16 at 08:31; Status DC Info (Do NOT chart on this entry -- for MONITORING) 1 each PRN DAILY PRN MC SEE COMMENTS; Start 10/06/16 at 08:30; Stop 10/08/16 at 08:29; Status DC Acetaminophen (Tylenol) 650 mg PRN Q4HRS PRN PO FEVER Last administered on 06:00; Start 10/06/16 at 09:00; Stop 10/07/16 at 08:59; Status DC Sodium Chloride 1,000 ml @ 1,000 mls/hr 1X ONCE IV Last administered on 09:29; Start 10/06/16 at 09:00; Stop 10/06/16 at 09:59; Status DC Levofloxacin/ Dextrose 150 ml @ 100 mls/hr Q48H IV Last administered on 08:29; Start 10/07/16 at 09:00; Stop 10/08/16 at 12:35; Status DC Ondansetron HCl (Zofran) 4 mg PRN Q6HRS PRN IV NAUSEA/VOMITING; Start 10/06/16 at 11:15 Aspirin (Ecotrin) 81 mg DAILYAC PO Last administered on 10/09/16 08:09; Start 10/06/16 at 11:30 Levothyroxine Sodium (Synthroid) 75 mcg DAILY06 PO Last administered on 06:21; Start 10/06/16 at 11:30 Lisinopril (Prinivil) 5 mg DAILY PO ; Start 10/06/16 at 11:30; Stop 10/06/16 at 15 :04; Status DC Enoxaparin Sodium (Lovenox 30mg Syringe) 30 mg DAILY16 SQ Last administered on 10/08/16 17:23; Start 10/06/16 at 16:00 Polyethylene Glycol (miraLAX PACKET) 17 gm DAILY PO Last administered on 08:09; Start 10/06/16 at 12:00 Magnesium Hydroxide (Milk Of Magnesia) 2,400 mg PRN DAILY PRN PO CONSTIPATION; Start 10/06/16 at 11:45 Citalopram Hydrobromide (CeleXA) 20 mg DAILY PO Last administered on 10/09/16 08:09; Start 10/06/16 at 15:30 Non-Formulary Medication 1 puff QIDPRN PRN INH SHORTNESS OF BREATH; Start at 15:00; Status UNV Albuterol Sulfate (Ventolin Neb Soln) 2.5 mg PRN QID PRN NEB SHORTNESS OF BREATH; Start 10/06/16 at 15:15 Sodium Chloride 1,000 ml @ 1,650 mls/hr Q37M IV ; Start 10/06/16 at 23:30; Stop 10/06/16 at 23:50; Status DC Sodium Chloride 1,000 ml @ 0 mls/hr 1X ONCE IV Last administered on 10/07/16 00:00; Start 10/07/16 at 00:00; Stop 10/07/16 at 00:01; Status DC Potassium Chloride (Klor-Con) 40 meq 1X ONCE PO Last administered on 10/07/16 09:53; Start 10/07/16 at 09:30; Stop 10/07/16 at 09:31; Status DC Ceftriaxone Sodium 1 gm/ Sodium Chloride 50 ml @ 100 mls/hr Q24H IV Last administered on 10/08/16 11:41; Start 10/07/16 at 12:00; Stop 10/08/16 at 12:35; Status DC Haloperidol Lactate (Haldol) 2 mg PRN Q4HRS PRN IVP AGITATION Last administered on 10/08/16 00:10; Start 10/08/16 at 00:00 Amino Acids/ Glycerin/ Electrolytes 1,000 ml @ 80 mls/hr [id number] IV Last administered on 10/09/16 00:37; Start 10/08/16 at 11:30 Piperacillin Sod/ Tazobactam Sod 3.375 gm/Sodium Chloride 50 ml @ 100 mls/hr Q6HRS IV Last administered on 10/09/16 06:21; Start 10/08/16 at 18:00 Active Scripts Active Tylenol (Acetaminophen) 325 Mg Tablet 650 Mg PO PRN Q4HRS PRN Prinivil (Lisinopril) 5 Mg Tablet 5 Mg PO DAILY Levothyroxine Sodium 75 Mcg Tablet 1 Tab PO DAILY Reported Citalopram Hbr (Citalopram Hydrobromide) 20 Mg Tablet 1 Tab PO DAILY Hydroxychloroquine Sulfate 200 Mg Tablet 1 Tab PO BID Methotrexate (Methotrexate Sodium) 2.5 Mg Tablet 4 Tab PO WEEKLY Folic Acid 1 Mg Tablet 1 Tab PO DAILY Proair Hfa Inhaler (Albuterol Sulfate) 8.5 Gm Hfa.aer.ad 1 Puff INH QIDPRN PRN Vitals/I & O Vital Sign - Last 24 Hours 10/08/16 10/08/16 10/08/16 10/08/16 15:00 19:38 20:00 22:38 Temp 100.0 98.4 99.3 100.0 98.4 99.3 Pulse 70 71 74 Resp 16 18 18 B/P (MAP) 132/58 (82) 143/60 (87) 137/59 (85) Pulse Ox 95 97 95 O2 Delivery Room Air Room Air Room Air 10/09/16 10/09/16 10/09/16 03:00 07:25 07:43 Temp 98.9 98.5 98.9 98.5 Pulse 73 64 Resp 18 18 B/P (MAP) 122/55 (77) 127/56 (79) Pulse Ox 94 93 O2 Delivery Room Air Room Air Room Air Nutrition Consultation Dietary Evaluation: Recommendations by RD: Increase Calorie Intake, Protein supplementation Comments: added ice cream and boost plus to meals Expected Outcomes/Goals: to meet > 50% est nutr needs Interpretation of weight loss: >7.5% in 3 months Malnutrition Findings: Food and Nutrition Intake (Sev: <50% est energy req 5days Body Fat Depletion (Non Severe: Mild Depletion Weight Status: Underweight ALLA PETER MD October 09, 2016 11:33
[2016-10-09 15:44] VITALS: BP 123/50
[2016-10-09] MEDS ORDERED: ENOXAPARIN 40 MG/0.4 ML SYRINGE. SQ SCH (16:00)
[2016-10-09 19:00] VITALS: BP 114/49
[2016-10-09 23:00] VITALS: BP 125/54
[2016-10-10 02:57] VITALS: BP 130/54
[2016-10-10] MEDS: AMINO AC 3%/ELECTROLYTE/GLYCER 1,000 ML IV SCH ×2 (03:08→13:30)
[2016-10-10] MEDS: PIPERACILLIN/TAZOBACTAM 3.375 GM in IV NORMAL SALINE 50ML 50 ML IV SCH ×4 (05:53→12:00)
[2016-10-10] MEDS: LEVOTHYROXINE 75 MCG TABLET PO SCH (05:53)
[2016-10-10 07:44] VITALS: BP 129/60
[2016-10-10] MEDS: ASPIRIN ENTERIC COATED 81 MG TABLET.DR. PO SCH (08:34)
[2016-10-10] MEDS: CITALOPRAM 20 MG TABLET. PO SCH (08:34)
[2016-10-10] MEDS: POLYETHYLENE GLYCOL 3350 17 GM PACKET. PO SCH (08:35)
--- NOTE | 2016-10-10 10:08 | PDOC ---
Infectious Disease Note Subjective Subjective Feeling great, wants to go home Appetite good, eating Ambulating Dry cough, improving No fever last 24 hours ROS ROS GEN: Denies chills, sweats HEENT: Denies blurred vision, sore throat CV: Denies chest pain RESP: Denies shortness of air GI: Denies n/v/d NEURO: Denies confusion, dizziness Vital Sign Vital Signs Vital Signs Date Time Temp Pulse Resp B/P (MAP) Pulse Ox O2 Delivery O2 Flow Rate FiO2 10/10/16 07:44 98.1 64 18 129/60 (83) 95 Room Air 98.1 Physical Exam PHYSICAL EXAM GENERAL: Up in the chair, smiling HEENT: PERRL, OC/OP pink and moist NECK: Supple, no JVD, no LN LUNGS: Clear, nonlabored HEART: S1S2 ABD: Soft, NT, BS present EXT: BLE edema, ENEDINA hose on [employer]AMP SHADES: Alert, oriented x 3, no focal neurologic deficit SKIN: No rash Labs Micro BLOOD CULTURE Preliminary NO GROWTH AFTER 4 DAYS Objective Assessment CAP. RUL consolidation on CT. Doing really well Fever, better Leukocytosis, better RA Lactic acidosis, better Plan Plan of Care Zosyn- wean po Augmentin for 7 days supportive care d/w family D/w Dr. Prado Attending Co-Sign Attending Co-Sign The patient was seen and interviewed as well as examined at the bedside. The chart was reviewed. The case was discussed. Agree with the plan of care. Attending Co-Sign Attending Co-Sign The patient was seen and interviewed as well as examined at the bedside. The chart was reviewed. The case was discussed. Agree with the plan of care. CHELSEA GILLILAND APRN October 10, 2016 10:08 CJ HERNANDEZ MD October 10, 2016 13:51
--- NOTE | 2016-10-10 10:41 | PDOC ---
PULMONARY PROGRESS NOTES Subjective has occ cough, no sob, feels much better. no pain, Vitals Vital Signs Date Time Temp Pulse Resp B/P (MAP) Pulse Ox O2 Delivery O2 Flow Rate FiO2 10/10/16 07:44 98.1 64 18 129/60 (83) 95 Room Air 98.1 ROS: No Nausea, No Chest Pain, No Abdominal Pain General: Alert, No acute distress Lungs: Clear Cardiovascular: S1, S2 Abdomen: Soft Neuro Exam: Alert Extremities: No Edema Skin: Warm Labs Laboratory Tests Test 10/09/16 05:00 White Blood Count 10.0 x10^3/uL (4.0-11.0) Red Blood Count 2.75 x10^6/uL (3.50-5.40) Hemoglobin 9.2 g/dL (12.0-15.5) Hematocrit 27.5 % (36.0-47.0) Mean Corpuscular Volume 100 fL (79-100) Mean Corpuscular Hemoglobin 33 pg (25-35) Mean Corpuscular Hemoglobin Concent 33 g/dL (31-37) Red Cell Distribution Width 13.4 % (11.5-14.5) Platelet Count 290 x10^3/uL (140-400) Neutrophils (%) (Auto) 80 % (31-73) Lymphocytes (%) (Auto) 13 % (24-48) Monocytes (%) (Auto) 7 % (0-9) Eosinophils (%) (Auto) 0 % (0-3) Basophils (%) (Auto) 0 % (0-3) Neutrophils # (Auto) 8.0 x10^3uL (1.8-7.7) Lymphocytes # (Auto) 1.3 x10^3/uL (1.0-4.8) Monocytes # (Auto) 0.7 x10^3/uL (0.0-1.1) Eosinophils # (Auto) 0.0 x10^3/uL (0.0-0.7) Basophils # (Auto) 0.0 x10^3/uL (0.0-0.2) Sodium Level 133 mmol/L (136-145) Potassium Level 3.8 mmol/L (3.5-5.1) Chloride Level 101 mmol/L (98-107) Carbon Dioxide Level 24 mmol/L (21-32) Anion Gap 8 (6-14) Blood Urea Nitrogen 15 mg/dL (7-20) Creatinine 0.8 mg/dL (0.6-1.0) Estimated GFR (Cockcroft-Gault) 68.7 Glucose Level 96 mg/dL (70-99) Calcium Level 7.9 mg/dL (8.5-10.1) Medications Active Scripts Medications Dose Route/Sig Max Daily Dose Days Date Category Citalopram Hbr (Citalopram Hydrobromide) 20 Mg Tablet 1 Tab PO DAILY 10/06/16 Reported Hydroxychloroquine Sulfate 200 Mg Tablet 1 Tab PO BID 10/06/16 Reported Methotrexate (Methotrexate Sodium) 2.5 Mg Tablet 4 Tab PO WEEKLY 10/06/16 Reported Folic Acid 1 Mg Tablet 1 Tab PO DAILY 10/06/16 Reported Proair Hfa Inhaler (Albuterol Sulfate) 8.5 Gm Hfa.aer.ad 1 Puff INH QIDPRN PRN 10/06/16 Reported Tylenol (Acetaminophen) 325 Mg Tablet 650 Mg PO PRN Q4HRS PRN 04/15/15 Rx Prinivil (Lisinopril) 5 Mg Tablet 5 Mg PO DAILY 04/15/15 Rx Levothyroxine Sodium 75 Mcg Tablet 1 Tab PO DAILY 04/15/[address] reviewed, Dense consolidation in the right upper lobe compatible with pneumonia. Impression . 1. Persistent cough with weight loss and loss of appetite and progressive weakness in a patient with abnormal chest x-ray with right hilar fullness and also infiltrate in the right upper lobe. ct chest with no mass 2. No significant history of tobacco use. 3. Leukocytosis secondary to suspected post-obstructive pneumonia. 4. Hyponatremia 5. Blood in the stools. CT abdomen negative for any malignancy. Plan . 1. CT chest with no hilar mass . she does have RUL consolidation, wants to go home. ok to go home since she has improved clinically, abx per id. she will need a fu chest ct in 4-6 wks and fu w dr peña. 2. Follow sodium level. 3. zosyn. abx per id 4. DVT prophylaxis with Lovenox. 5. P.r.n. bronchodilators. 6. repeat cxr discussed w pt, her and rn CALLI JOHNSON MD October 10, 2016 10:41
[2016-10-10 11:37] VITALS: BP 130/79
[2016-10-10] MEDS ORDERED: AMOX1TAB61 PO (13:57)
--- NOTE | 2016-10-10 13:59 | PDOC3 ---
Discharge Summary Visit Information Date of Admission: October 06, 2016 Date of Discharge: October 10, 2016 Admitting Diagnosis Comment: 1. SIRS, sepsis, sec to CAP 2. RUL PNA 3. HTN 4. Hypothyroidism on synthroid 5.Hyponatremia on Rustam inhib 6. 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 Poor pO, mod PCM 8, Hypokalemia sec to poor PO Brief Hospital Course Allergies Allergies Coded Allergies Type Severity Reaction Last Updated Verified No Known Drug Allergies 09/30/14 No Vital Signs Vital Signs Date Time Temp Pulse Resp B/P (MAP) Pulse Ox O2 Delivery O2 Flow Rate FiO2 10/10/16 11:37 97.5 64 18 130/79 (96) 97 Room Air 97.5 Lab Results Laboratory Tests Test 10/09/16 05:00 White Blood Count 10.0 x10^3/uL (4.0-11.0) Red Blood Count 2.75 x10^6/uL (3.50-5.40) Hemoglobin 9.2 g/dL (12.0-15.5) Hematocrit 27.5 % (36.0-47.0) Mean Corpuscular Volume 100 fL (79-100) Mean Corpuscular Hemoglobin 33 pg (25-35) Mean Corpuscular Hemoglobin Concent 33 g/dL (31-37) Red Cell Distribution Width 13.4 % (11.5-14.5) Platelet Count 290 x10^3/uL (140-400) Neutrophils (%) (Auto) 80 % (31-73) Lymphocytes (%) (Auto) 13 % (24-48) Monocytes (%) (Auto) 7 % (0-9) Eosinophils (%) (Auto) 0 % (0-3) Basophils (%) (Auto) 0 % (0-3) Neutrophils # (Auto) 8.0 x10^3uL (1.8-7.7) Lymphocytes # (Auto) 1.3 x10^3/uL (1.0-4.8) Monocytes # (Auto) 0.7 x10^3/uL (0.0-1.1) Eosinophils # (Auto) 0.0 x10^3/uL (0.0-0.7) Basophils # (Auto) 0.0 x10^3/uL (0.0-0.2) Sodium Level 133 mmol/L (136-145) Potassium Level 3.8 mmol/L (3.5-5.1) Chloride Level 101 mmol/L (98-107) Carbon Dioxide Level 24 mmol/L (21-32) Anion Gap 8 (6-14) Blood Urea Nitrogen 15 mg/dL (7-20) Creatinine 0.8 mg/dL (0.6-1.0) Estimated GFR (Cockcroft-Gault) 68.7 Glucose Level 96 mg/dL (70-99) Calcium Level 7.9 mg/dL (8.5-10.1) Brief Hospital Course Ms. Leos is a 81 old male admitted for impressive rUL pneumonia, sepsis,. WAs initially treated on IV levaquin but had fevesr and leukocytosis hence iD consulted and shifted on IV zosyn, Afebrile, ahd 3 days IV zosyn, wants to go home. Cleared by ID and pulmo with instructions to rpt CT chest 4-6 weeks and pulmo ff up 4-6 weeks, I have also instructed to stop MTX and plaquenil while having active pna, DispO; HH ConsulT: ID and pulmo Dw ID and Rn time 32 mins Discharge Information Condition at Discharge: Improved, Stable Follow Up: Weeks (4- [address] chest and ff up Pulmo) Disposition/Orders: D/C to Home w/ HH Scheduled Citalopram Hydrobromide (Citalopram Hbr), 1 TAB PO DAILY, (Reported) Folic Acid (Folic Acid), 1 TAB PO DAILY, (Reported) Hydroxychloroquine Sulfate (Hydroxychloroquine Sulfate), 1 TAB PO BID, (Reported ) Levothyroxine Sodium (Levothyroxine Sodium), 1 TAB PO DAILY Lisinopril (Prinivil), 5 MG PO DAILY Methotrexate Sodium (Methotrexate), 4 TAB PO WEEKLY, (Reported) Scheduled PRN Acetaminophen (Tylenol), 650 MG PO PRN Q4HRS PRN for MILD PAIN / TEMP Albuterol Sulfate (Proair Hfa Inhaler), 1 PUFF INH QIDPRN PRN for SHORTNESS OF BREATH, (Reported) Discontinued Medications Aspirin (Aspir 81), 81 MG PO DAILYAC, (Reported) ALLA PETER MD October 10, 2016 13:59
== END 2016-10-10 15:19 | disposition home health service (06) | DRG 871 ==
LOC: ER 06:50 → 6 SOUTH 08:50
PROVIDERS: ADMIT Internal Medicine; ATTEND Internal Medicine
DX: A41.9 Sepsis, unspecified organism (principal); J18.9 Pneumonia, unspecified organism; E87.1 Hypo-osmolality and hyponatremia; E44.0 Moderate protein-calorie malnutrition; Z68.1 Body mass index [BMI] 19.9 or less, adult; K56.7 Ileus, unspecified; E78.00 Pure hypercholesterolemia, unspecified; E03.9 Hypothyroidism, unspecified; E78.5 Hyperlipidemia, unspecified; F32.9 Major depressive disorder, single episode, unspecified; F41.9 Anxiety disorder, unspecified; M19.90 Unspecified osteoarthritis, unspecified site; E87.6 Hypokalemia; F03.90 Unspecified dementia, unspecified severity, without behavioral disturbance, psychotic disturbance, mood disturbance, and anxiety; E53.8 Deficiency of other specified B group vitamins; I10 Essential (primary) hypertension; M06.9 Rheumatoid arthritis, unspecified; Z82.49 Family history of ischemic heart disease and other diseases of the circulatory system; Z90.49 Acquired absence of other specified parts of digestive tract; Z90.710 Acquired absence of both cervix and uterus; Z98.49 Cataract extraction status, unspecified eye
CPT/HCPCS: 36415; 51701; 71010; 71250; 74177; 80047; 80048; 80076; 81001; 83605; 83690; 83880; 84439; 84443; 84481; 84484; 85007; 85027; 86738; 87040; 87449; 93005; 94760; 96361; 96365; 96375; J0696; J1630; J1650; J1956; J2405; J2543; J7030; Q9967; 97110; 97116; 97530; 97535; 99285-25

== ENCOUNTER → 2016-11-24 | Outpatient (CLI) | payer MEDICARE ==
[~2016-11-24] MED LIST changes: +AMOX1TAB61 PO; +CITA20TA5 PO; -DONE5TAB33 PO; +DONE5TAB56 PO; +FOLI1TAB16 PO; +HYDR200T5 PO; -MELO-150 PO; -MELO-156 PO; +MELO15TA23 PO; +MELO7.5T29 PO; +METH2.5T PO; +PROAIR HFA8.5 GM INH
--- NOTE | 2016-11-24 11:20 | RAD ---
Indication follow-up pneumonia. Axial noncontrast imaging through the chest was performed and is compared to a study 10/06/2016. Imaging through the upper abdomen is unremarkable. There is now, in contrast to the previous examination, some mild adenopathy in both axilla. This is probably reactive. There are a few mediastinal lymph nodes which too are probably reactive. A definite pathologic mediastinal or hilar adenopathy is not seen. There has been substantial improvement in consolidative process seen previously in the right upper lobe compatible with pneumonia. Some residual volume loss persists which may represent scar or incomplete resolution of pneumonia seen previously. There are now, in contrast to the previous exam, a patchy infiltrate in the right middle lobe which may represent a pneumonic focus. Some unchanged chronic bronchiectasis is noted in the lingula. There is no pleural fluid. A dominant soft tissue mass is not seen. IMPRESSION: The appearance of the chest, overall, is improved. Dense consolidation in the right upper lobe has improved although some residual volume loss may represent incomplete clearing of pneumonia or scar. There is now a patchy infiltrate in the right middle lobe which suggests an inflammatory process. Pneumonia in the right middle lobe should be considered. Chronic changes in the lingula. Mild adenopathy in both axilla and the mediastinum is likely reactive PQRS Compliance Statement: One or more of the following individualized dose reduction techniques were utilized for this examination: 1. Automated exposure control 2. Adjustment of the mA and/or kV according to patient size 3. Use of iterative reconstruction technique
== END | disposition home or self-care (01) ==
LOC: CT 10:14
PROVIDERS: ATTEND Family Medicine
DX: J18.1 Lobar pneumonia, unspecified organism (principal); J47.9 Bronchiectasis, uncomplicated
CPT/HCPCS: 71250

== ENCOUNTER → 2017-01-17 | Outpatient (CLI) | payer MEDICARE ==
--- NOTE | 2017-01-17 10:12 | KCIC ---
INDICATION: Infiltrates. TECHNIQUE: Two-view chest radiograph was obtained. Comparison is a CT chest from November 24, 2016. FINDINGS: There is mild hyperinflation. Right upper lobe infiltrate noted by chest radiograph appears to have resolved. Nodular densities on the left are noted, one corresponds to a calcified granuloma noted on CT chest and the other appears to correspond to some atelectasis or scarring noted along the fissure on prior CT. There is no pleural effusion. The heart is not enlarged and there is no heart failure. There is atheromatous disease in the thoracic aorta. IMPRESSION: 1. Resolution of the right upper lobe infiltrate. 2. Pulmonary hyperinflation may be secondary to emphysema. 3. 2 nodular densities on the left, one corresponds to a calcified granuloma on prior CT chest. The other may represent a nodular area of scarring given appearance on prior CT chest. 12 month follow-up can be considered. Electronically signed by: Caden Long MD (01/17/2017 10:08 AM) [facility]
== END | disposition home or self-care (01) ==
LOC: KCIC 09:34
PROVIDERS: ATTEND Family Medicine
DX: J43.9 Emphysema, unspecified (principal); R91.8 Other nonspecific abnormal finding of lung field
CPT/HCPCS: 71020

== ENCOUNTER 2020-12-11 19:48 | Emergency (ER) | payer MEDICARE ==
[~2020-12-11] VITALS: Ht 172.7 cm; Wt 54.0 kg
[~2020-12-11 19:48] MED LIST changes: +ALBU2.5V8 INH; -CITA20TA5 PO; +CITA20TA6 PO; -PROAIR HFA8.5 GM INH; +SIMV80TA17 PO; -SIMV80TA3 PO
--- NOTE | 2020-12-11 20:14 | ED.ADGEN ---
Past Medical History Past Medical History: Arthritis, Dementia, Depression, High Cholesterol, Hypothyroid, Other Additional Past Medical Histor: headaches Past Surgical History: Appendectomy, Hysterectomy Additional Past Surgical Histo: cataracts Smoking Status: Never Smoker Alcohol Use: Occasionally Drug Use: None General Adult EDM: Chief Complaint: CHEST PAIN HPI: HPI: Patient is a 85 year old female coming in for right upper chest and shoulder pa in. Says the pain started this morning.. Patient is complaining of pain in her lower extremities, per family states she always has pain. But is worse today and having difficulty walking and transitioning. Has had cough. Saw her primary care provider today and was given prescription for Mucinex and a Z-Jerry. Was told to come to the emergency department if symptoms worsen for chest x-ray. Patient denies any significant medical history other than arthritis and pneumonia. Denies any fevers. Has had both for Dctio vaccines. Denies any GI or urinary complaints. Review of Systems: Review of Systems: All other systems within normal limits except for as noted in the HPI Current Medications: Current Medications Medications (Trade) Dose Ordered Sig/Ang Start Time Stop Time Status Last Admin Dose Admin Acetaminophen (Tylenol) 1,000 mg 1X ONCE 12/11/20 20:15 12/11/20 20:16 DC 12/11/20 20:37 1,000 MG Allergies: Allergies: Allergies Coded Allergies Type Severity Reaction Last Updated Verified No Known Drug Allergies 09/30/14 No Physical Exam: PE: Constitutional: Well developed, well nourished, no acute distress, non-toxic appearance. [] HENT: Normocephalic, atraumatic, bilateral external ears normal, nose normal. [] Eyes: PERRLA, conjunctiva normal, no discharge. [] Neck: No rigidity, supple, no stridor. [] Cardiovascular: Regular rate and rhythm, brisk cap refill [] Lungs & Thorax: Non labored symmetric respirations, no tachypnea or respiratory distress. Clear to auscultation [] Abdomen: Soft, nondistended nontender elevation. Skin: Warm, dry, no erythema, no rash. [] Back: Unremarkable Extremities: No deformities, range of motion grossly intact, no lower extremity edema. Diffusely tender to palpation [] Neurologic: Alert and oriented X 3, no focal deficits noted. [] Psychologic: Affect normal, judgement normal, mood normal. [] Current Patient Data: Labs: Laboratory Tests Test 12/11/20 20:06 12/11/20 21:05 12/11/20 21:30 White Blood Count 9.8 x10^3/uL (4.0-11.0) Red Blood Count 3.29 x10^6/uL (3.50-5.40) L Hemoglobin 10.2 g/dL (12.0-15.5) L Hematocrit 31.0 % (36.0-47.0) L Mean Corpuscular Volume 94 fL (79-100) Mean Corpuscular Hemoglobin 31 pg (25-35) Mean Corpuscular Hemoglobin Concent 33 g/dL (31-37) Red Cell Distribution Width 14.4 % (11.5-14.5) Platelet Count 324 x10^3/uL (140-400) Neutrophils (%) (Auto) 76 % (31-73) H Lymphocytes (%) (Auto) 15 % (24-48) L Monocytes (%) (Auto) 8 % (0-9) Eosinophils (%) (Auto) 1 % (0-3) Basophils (%) (Auto) 1 % (0-3) Neutrophils # (Auto) 7.4 x10^3/uL (1.8-7.7) Lymphocytes # (Auto) 1.4 x10^3/uL (1.0-4.8) Monocytes # (Auto) 0.8 x10^3/uL (0.0-1.1) Eosinophils # (Auto) 0.1 x10^3/uL (0.0-0.7) Basophils # (Auto) 0.1 x10^3/uL (0.0-0.2) Sodium Level 136 mmol/L (136-145) Potassium Level 4.6 mmol/L (3.5-5.1) Chloride Level 101 mmol/L (98-107) Carbon Dioxide Level 24 mmol/L (21-32) Anion Gap 11 (6-14) Blood Urea Nitrogen 12 mg/dL (7-20) Creatinine 1.0 mg/dL (0.6-1.0) Estimated GFR (Cockcroft-Gault) 52.6 BUN/Creatinine Ratio 12 (6-20) Glucose Level 113 mg/dL (70-99) H Calcium Level 8.7 mg/dL (8.5-10.1) Phosphorus Level 2.9 mg/dL (2.6-4.7) Magnesium Level 2.3 mg/dL (1.8-2.4) Total Bilirubin 0.8 mg/dL (0.2-1.0) Aspartate Amino Transferase (AST) 14 U/L (15-37) L Alanine Aminotransferase (ALT) 12 U/L (14-59) L Alkaline Phosphatase 100 U/L (46-116) Creatine Kinase 73 U/L (26-192) Troponin I Quantitative < 0.017 ng/mL (0.000-0.055) OV-Ehr-J-Type Natriuretic Peptide 736 pg/mL (0-449) H Total Protein 7.2 g/dL (6.4-8.2) Albumin 3.1 g/dL (3.4-5.0) L Albumin/Globulin Ratio 0.8 (1.0-1.7) L Lactic Acid Level 1.8 mmol/L (0.4-2.0) Urine Collection Type Unknown Urine Color Yellow Urine Clarity Clear Urine pH 7.5 (<5.0-8.0) Urine Specific [place] 1.025 (1.000-1.030) Urine Protein 30 mg/dL (NEG-TRACE) Urine Glucose (UA) Negative mg/dL (NEG) Urine Ketones (Stick) Trace mg/dL (NEG) Urine Blood Negative (NEG) Urine Nitrite Negative (NEG) Urine Bilirubin Small (NEG) Urine Urobilinogen Dipstick 2.0 mg/dL (0.2 mg/dL) Urine Leukocyte Esterase Moderate (NEG) Urine RBC 0 /HPF (0-2) Urine WBC 20-40 /HPF (0-4) Urine Squamous Epithelial Cells Mod /LPF Urine Bacteria Few /HPF (0-FEW) Urine Hyaline Casts Few /HPF Urine Mucus Mod /LPF Laboratory Tests 12/11/20 20:06 Laboratory Tests 12/11/20 20:06 Vital Signs: Vital Signs Date Time Temp Pulse Resp B/P (MAP) Pulse Ox O2 Delivery O2 Flow Rate FiO2 12/11/20 21:23 72 119/53 (75) 99 Room Air 12/11/20 19:53 98.4 12 98.4 EKG: EKG: Sinus rhythm, heart rate 80 bpm, left axis deviation, no ST elevation or depression, no change from ECG dated 10-06-16 [] Heart Score: C/O Chest Pain: Yes HEART Score for Chest Pain: HEART Score for Chest Pain Response (Comments) Value History Slighlty/Non-Suspicious 0 ECG Nonspecific Repolarizatio 1 Age > 65 2 Risk Factors No Risk Factors 0 Troponin < Normal Limit 0 Total 3 Risk Factors: Risk Factors: DM, Current or recent (<one month) smoker, HTN, HLP, family histo ry of CAD, obesity. Risk Scores: Score 0 - 3: 2.5% MACE over next 6 weeks - Discharge Home Score 4 - 6: 20.3% MACE over next 6 weeks - Admit for Clinical Observation Score 7 - 10: 72.7% MACE over next 6 weeks - Early Invasive Strategies Radiology/Procedures: Radiology/Procedures: [facility] [address] [place] [address] IMAGING REPORT Signed PATIENT: JESSICA GLASS ACCOUNT: [id number] : 1935 LOCATION: ER AGE: 85 SEX: F EXAM STATUS: REG ER ORD. PHYSICIAN: KIMBERLY BLAND MD REASON: cough, chest pain on right PROCEDURE: CHEST AP ONLY EXAM: AP View of the chest DATE: 12/11/2020 8:10 PM INDICATION: Reason: cough, chest pain on right / Spl. Instructions: / History: COMPARISON: No Prior FINDINGS: The heart is not enlarged. Mediastinal and hilar contours are normal. Patchy opacity left midlung likely consolidative process such as pneumonia. B iapical patchy opacities. No pleural effusion or pneumothorax. IMPRESSION: Patchy multifocal opacities bilaterally may represent consolidative process such as pneumonia. Imaging follow-up to resolution is recommended. Electronically signed by: Vince Barrett MD (12/11/2020 9:07 PM) [facility] DICTATED and SIGNED BY: VINCE BARRETT MD DATE: 12/11/20 [id number] [] Course & Med Decision Making: Course & Med Decision Making Pertinent Labs and Imaging studies reviewed. (See chart for details) Patient only taking azithromycin for pneumonia. Has atypical pneumonia on chest x-ray, will add extra coverage to cover urinary tract infection and pneumococcal resistance to azithromycin. Offered admission due to patient's age and weakness with getting around, patient states she wants to go home. Patient's and daughter agreed that they feel they could adequately care for her at home. Discussed return precautions and follow-up with her primary care provider tomorrow [] Jerome Disclaimer: Jerome Disclaimer: This electronic medical record was generated, in whole or in part, using a voice recognition dictation system. Departure Departure Impression: Primary Impression: Pneumonia Additional Impressions: Urinary tract infection Weakness Disposition: 01 HOME / SELF CARE / HOMELESS Condition: STABLE Referrals: MINOR RODRIGUEZ MD (PCP) Patient Instructions: Pneumomediastinum Scripts Cefpodoxime Proxetil (CEFPODOXIME PROXETIL) 200 Mg Tablet 1 TAB PO BID for antibiotic for 5 Days, #10 TAB Prov: KIMBERLY BLAND MD 12/11/20 Problem Qualifiers KIMBERLY BLAND MD Dec 11, 2020 20:13
[2020-12-11] MEDS ORDERED: ACETAMINOPHEN 500 MG TABLET PO ONE (20:15)
[2020-12-11 20:18] LABS: BASO # 0.1 x10^3/uL (0.0-0.2); BASO % 1 % (0-3); EOS # 0.1 x10^3/uL (0.0-0.7); EOS % 1 % (0-3); HEMOGLOBIN 10.2 g/dL (12.0-15.5); LYMPH # 1.4 x10^3/uL (1.0-4.8); LYMPH % 15 % (24-48); MEAN CORPUSCULAR HEMOGLOBIN 31 pg (25-35); MEAN CORPUSCULAR HGB CONC 33 g/dL (31-37); MEAN CORPUSCULAR VOLUME 94 fL (79-100); MONO # 0.8 x10^3/uL (0.0-1.1); MONO % 8 % (0-9); NEUT # 7.4 x10^3/uL (1.8-7.7); NEUT % 76 % (31-73); PLATELET COUNT 324 x10^3/uL (140-400); RED BLOOD COUNT 3.29 x10^6/uL (3.50-5.40); RED CELL DISTRIBUTION WIDTH 14.4 % (11.5-14.5); WHITE BLOOD COUNT 9.8 x10^3/uL (4.0-11.0)
[2020-12-11 20:26] LABS: CALCIUM 8.7 mg/dL (8.5-10.1); GFR 52.6; POTASSIUM 4.6 mmol/L (3.5-5.1)
[2020-12-11 20:33] LABS: ALBUMIN 3.1 g/dL (3.4-5.0); ALBUMIN/GLOBULIN RATIO 0.8 (1.0-1.7); MAGNESIUM 2.3 mg/dL (1.8-2.4); PHOSPHORUS 2.9 mg/dL (2.6-4.7); TOTAL BILIRUBIN 0.8 mg/dL (0.2-1.0); TOTAL PROTEIN 7.2 g/dL (6.4-8.2)
--- NOTE | 2020-12-11 21:09 | RAD ---
EXAM: AP View of the chest DATE: 12/11/2020 8:10 PM INDICATION: Reason: cough, chest pain on right / Spl. Instructions: / History: COMPARISON: No Prior FINDINGS: The heart is not enlarged. Mediastinal and hilar contours are normal. Patchy opacity left midlung likely consolidative process such as pneumonia. Biapical patchy opacities . No pleural effusion or pneumothorax. IMPRESSION: Patchy multifocal opacities bilaterally may represent consolidative process such as pneumonia. Imagin g follow-up to resolution is recommended. Electronically signed by: Vince Carmona MD (12/11/2020 9:07 PM) YESSICA
[2020-12-11 21:42] LABS: BILIRUBIN,URINE SMALL (NEG); CLARITY,URINE CLEAR; COLOR,URINE YELLOW; NITRITE,URINE NEGATIVE (NEG); PH,URINE 7.5 (<5.0-8.0); PROTEIN,URINE 30 mg/dL (NEG-TRACE)
--- NOTE | 2020-12-11 21:43 | EKG ---
[facility] [address] [place] [address] Test Date: 2020-12-11 Test Time: 19:55:54 Pat Name: JESSICA GLASS Department: Room: Gender: F Design Drafter: : 1935 Requested By: KIMBERLY BLAND Order Number: [id number] Reading MD: Measurements Intervals Lovely Rate: 80 P: 46 GA: 154 QRS: -13 QRSD: 88 T: 58 QT: 382 QTc: 444 Interpretive Statements SINUS RHYTHM LEFTWARD AXIS T ABNORMALITY IN HIGH LATERAL LEADS ABNORMAL ECG RI6.01 No previous ECG available for comparison
[2020-12-11 21:47] LABS: BACTERIA,URINE FEW /HPF (0-FEW); HYALINE CASTS, URINE FEW /HPF; RBC,URINE 0 /HPF (0-2); WBC,URINE 20-40 /HPF (0-4)
[2020-12-11] MEDS ORDERED: CEFP200T PO (22:27)
[2020-12-11] MEDS ORDERED: cefTRIAXone IV Push 1 GM VIAL. IVP ONE (22:30)
[2020-12-11 22:38] VITALS: BP 113/49
== END 2020-12-11 22:45 | disposition home or self-care (01) ==
LOC: ER 20:53
DX: J18.9 Pneumonia, unspecified organism (principal); N39.0 Urinary tract infection, site not specified; R53.1 Weakness; F03.90 Unspecified dementia, unspecified severity, without behavioral disturbance, psychotic disturbance, mood disturbance, and anxiety; E78.00 Pure hypercholesterolemia, unspecified; E03.9 Hypothyroidism, unspecified
CPT/HCPCS: 36415; 71045; 80053; 81001; 82550; 83605; 83735; 83880; 84100; 84484; 85025; 87040; 87086; 93005; 96374; 99285; J0696

== ENCOUNTER 2020-12-12 19:58 | Inpatient (IN) | payer MEDICARE ==
[~2020-12-12] VITALS: Ht 172.7 cm; Wt 54.5 kg
[~2020-12-12 19:58] MED LIST changes: +CEFP200T PO
--- NOTE | 2020-12-12 21:05 | ED.ADGEN ---
Past Medical History Past Medical History: Arthritis, Dementia, Depression, High Cholesterol, Hypothyroid, Other Additional Past Medical Histor: headaches Past Surgical History: Appendectomy, Hysterectomy Additional Past Surgical Histo: cataracts Smoking Status: Never Smoker Alcohol Use: None Drug Use: None General Adult EDM: Chief Complaint: WEAKNESS/GENERALIZED HPI: HPI: Patient is a 85 year old female, brought to the emergency department by her h wolfgang with reports of increasing weakness. Patient first began to feel ill 3 days ago. Patient and her state that the patient was seen in this ER yesterday and diagnosed with a urinary tract infection and pneumonia. They were offered to be admitted to the hospital last night but felt as if they can take care of her at home so chose to be discharged. Patient's states that today the patient has become so weak she can barely stand and now they would like to get her admitted to the hospital. They deny any fever, or increased shortness of breath. Patient states she was taking the medications as previously prescribed yesterday. She currently has any pain, she just states sh e is so weak she cannot even stand. Review of Systems: Review of Systems: Complete ROS is negative unless otherwise noted in HPI. Current Medications: Current Medications Medications (Trade) Dose Ordered Sig/Ang Start Time Stop Time Status Last Admin Dose Admin Acetaminophen (Tylenol) 650 mg PRN Q6HRS PRN 12/12/20 21:45 Al Hydroxide/Mg Hydroxide (Mylanta Plus Xs) 30 ml PRN Q3HRS PRN 12/12/20 21:45 Azithromycin (Zithromax) 500 mg 1X ONCE 12/12/20 21:30 12/12/20 21:31 DC 12/12/20 21:35 500 MG Calcium Carbonate/ Glycine (Tums) 500 mg PRN Q3HRS PRN 12/12/20 21:45 Ceftriaxone Sodium (Rocephin) 1 gm QHS 12/12/20 21:30 12/16/20 21:01 12/12/20 21:36 1 GM Magnesium Hydroxide (Milk Of Magnesia) 2,400 mg PRN Q12HR PRN 12/12/20 21:45 Ondansetron HCl (Zofran) 4 mg PRN Q6HRS PRN 12/12/20 21:45 Tramadol HCl (Ultram) 50 mg PRN Q6HRS PRN 12/12/20 21:15 Allergies: Allergies: Allergies Coded Allergies Type Severity Reaction Last Updated Verified No Known Drug Allergies 09/30/14 No Physical Exam: PE: See Above Constitutional: Well developed, well nourished, no acute distress, frail- appearing HENT: Normocephalic, atraumatic, bilateral external ears normal, nose normal. [] Eyes: PERRLA, EOMI, conjunctiva normal, no discharge. [] Neck: Normal range of motion, no stridor. [] Cardiovascular:Heart rate regular rhythm Lungs & Thorax: Respirations even and unlabored, no retractions, no respiratory distress Abdomen: soft, no tenderness Skin: Warm, dry, no erythema, no rash, cap refill less than 2 seconds. [] Extremities: BLE: Diffuse tenderness to palpation without crepitus or deformity, no cyanosis, ROM intact, no edema. [] Neurologic: Alert and oriented X 3, no focal deficits noted. [] Psychologic: Affect normal, judgement normal, mood normal. [] Current Patient Data: Labs: Laboratory Tests Test 12/12/20 20:57 12/12/20 21:02 White Blood Count 8.8 x10^3/uL (4.0-11.0) Red Blood Count 2.93 x10^6/uL (3.50-5.40) L Hemoglobin 8.9 g/dL (12.0-15.5) L Hematocrit 27.6 % (36.0-47.0) L Mean Corpuscular Volume 94 fL (79-100) Mean Corpuscular Hemoglobin 31 pg (25-35) Mean Corpuscular Hemoglobin Concent 32 g/dL (31-37) Red Cell Distribution Width 14.5 % (11.5-14.5) Platelet Count 272 x10^3/uL (140-400) Neutrophils (%) (Auto) 80 % (31-73) H Lymphocytes (%) (Auto) 10 % (24-48) L Monocytes (%) (Auto) 9 % (0-9) Eosinophils (%) (Auto) 0 % (0-3) Basophils (%) (Auto) 1 % (0-3) Neutrophils # (Auto) 7.0 x10^3/uL (1.8-7.7) Lymphocytes # (Auto) 0.9 x10^3/uL (1.0-4.8) L Monocytes # (Auto) 0.7 x10^3/uL (0.0-1.1) Eosinophils # (Auto) 0.0 x10^3/uL (0.0-0.7) Basophils # (Auto) 0.1 x10^3/uL (0.0-0.2) Sodium Level 132 mmol/L (136-145) L Potassium Level 3.9 mmol/L (3.5-5.1) Chloride Level 98 mmol/L (98-107) Carbon Dioxide Level 24 mmol/L (21-32) Anion Gap 10 (6-14) Blood Urea Nitrogen 13 mg/dL (7-20) Creatinine 1.1 mg/dL (0.6-1.0) H Estimated GFR (Cockcroft-Gault) 47.1 BUN/Creatinine Ratio 12 (6-20) Glucose Level 136 mg/dL (70-99) H Calcium Level 8.1 mg/dL (8.5-10.1) L Magnesium Level 2.1 mg/dL (1.8-2.4) Total Bilirubin 0.7 mg/dL (0.2-1.0) Aspartate Amino Transferase (AST) 15 U/L (15-37) Alanine Aminotransferase (ALT) 9 U/L (14-59) L Alkaline Phosphatase 94 U/L (46-116) Total Protein 6.6 g/dL (6.4-8.2) Albumin 2.7 g/dL (3.4-5.0) L Albumin/Globulin Ratio 0.7 (1.0-1.7) L Lactic Acid Level 1.4 mmol/L (0.4-2.0) Laboratory Tests 12/12/20 20:57 Laboratory Tests 12/12/20 20:57 Vital Signs: Vital Signs Date Time Temp Pulse Resp B/P (MAP) Pulse Ox O2 Delivery O2 Flow Rate FiO2 12/12/20 20:59 98.7 76 24 124/78 (70) 95 Room Air 98.7 EKG: EKG: [] Heart Score: C/O Chest Pain: No Radiology/Procedures: Radiology/Procedures: PROCEDURE: CHEST AP ONLY EXAM: AP View of the chest DATE: 12/12/2020 9:13 PM INDICATION: Reason: pneumonia weakness / Spl. Instructions: / History: COMPARISON: No Prior FINDINGS: Examination is limited by patient rotation. The heart is not enlarged. Mediastinal and hilar contours are normal. Patchy opacities left midlung and bilateral lung bases. Imaging follow-up to r esolution is recommended. No pleural effusion or pneumothorax. IMPRESSION: Patchy opacities left midlung and bilateral lung bases. Imaging follow-up to resolution is recommended. [] Course & Med Decision Making: Course & Med Decision Making Pertinent Labs and Imaging studies reviewed. (See chart for details) 2100-spoke with Dr. Ward who is the admitting physician, and care was assumed following discussion of patient. I advised Dr. Ward the patient wa s here last night diagnosed with pneumonia and a UTI, she declined admission to the hospital however she returns tonight stating that she is weak all over and needs to be admitted. Labs and repeat chest x-ray are pending. Patient's vital signs stable. Patient remains afebrile, appears nontoxic, res pirations even and unlabored. Patient will be admitted to the medical/surgical floor. Patient's case and plan of care also discussed with Dr. Vogel [] Jerome Disclaimer: Jerome Disclaimer: This electronic medical record was generated, in whole or in part, using a voice recognition dictation system. Departure Departure Impression: Primary Impression: Pneumonia Additional Impression: Weakness Disposition: ADMITTED INPATIENT Admitting Physician: HELGA El) Condition: STABLE Referrals: MINOR RODRIGUEZ MD (PCP) Problem Qualifiers Primary Impression: Pneumonia Pneumonia type: due to unspecified organism Laterality: unspecified laterality Lung location: unspecified part of lung Qualified Codes: J18.9 - Pneumonia, unspecified organism JAYLON JAMISON CHIEF TECHNOLOGY OFFICER Dec 12, 2020 21:05
[2020-12-12 21:11] LABS: BASO # 0.1 x10^3/uL (0.0-0.2); BASO % 1 % (0-3); EOS % 0 % (0-3); HEMATOCRIT 27.6 % (36.0-47.0); HEMOGLOBIN 8.9 g/dL (12.0-15.5); LYMPH # 0.9 x10^3/uL (1.0-4.8); LYMPH % 10 % (24-48); MEAN CORPUSCULAR HEMOGLOBIN 31 pg (25-35); MEAN CORPUSCULAR HGB CONC 32 g/dL (31-37); MEAN CORPUSCULAR VOLUME 94 fL (79-100); MONO # 0.7 x10^3/uL (0.0-1.1); MONO % 9 % (0-9); NEUT % 80 % (31-73); PLATELET COUNT 272 x10^3/uL (140-400); RED BLOOD COUNT 2.93 x10^6/uL (3.50-5.40); RED CELL DISTRIBUTION WIDTH 14.5 % (11.5-14.5); WHITE BLOOD COUNT 8.8 x10^3/uL (4.0-11.0)
[2020-12-12 21:27] LABS: CALCIUM 8.1 mg/dL (8.5-10.1); CREATININE 1.1 mg/dL (0.6-1.0); GFR 47.1; POTASSIUM 3.9 mmol/L (3.5-5.1)
[2020-12-12] MEDS ORDERED: AZITHROMYCIN 250 MG TABLET. PO ONE (21:30)
[2020-12-12 21:31] LABS: ALBUMIN 2.7 g/dL (3.4-5.0); ALBUMIN/GLOBULIN RATIO 0.7 (1.0-1.7); MAGNESIUM 2.1 mg/dL (1.8-2.4); TOTAL BILIRUBIN 0.7 mg/dL (0.2-1.0); TOTAL PROTEIN 6.6 g/dL (6.4-8.2)
--- NOTE | 2020-12-12 21:33 | PDOC1 ---
History and Physical Date of Admission Date of Admission DATE: 12/12/20 TIME: 20:54 Identification/Chief Complaint Chief Complaint Weakness Source Source: Caregiver, Chart review, Patient History of Present Illness History of Present Illness Patient is a 85-year-old female with past medical history rheumatoid arthritis, hypothyroidism, HTN, who presents to the ED with complaints of generalized weakness over the past 3-4 days. She actually initially presented to the ED last night with similar complaints and was diagnosed with UTI and pneumonia. She was offered admission but refused, opting instead to go home with her spouse. She was sent home with Cefpodoxime, of which she has taken 2 doses. She returns tonight with continued weakness and her states that he is unable to care for her at home. Patient and are agreeable to admission with IV antibiotics. She denies any fever, chills, nausea, vomiting, dysuria, urinary frequency, urinary urgency, or hematuria. Will admit for further medical management. Past Medical History Cardiovascular: HTN, Hyperlipidemia CENTRAL NERVOUS SYSTEM: Dementia, Vertigo Heme/Onc: B12 deficiency Psych: Anxiety, Depression Musculoskeletal: Osteoarthritis, Other Renal/: Urinary Incontinence Endocrine: Hypothyroidism Past Surgical History Past Surgical History: Appendectomy, Cholecystectomy, Hysterectomy Family History Family History: Coronary Artery Disease Social History Smoke: No ALCOHOL: none Drugs: None Current Medications Current Medications Active Scripts Active Cefpodoxime Proxetil 200 Mg Tablet 1 Tab PO BID 5 Days Augmentin 875-125 Tablet (Amoxicillin/Potassium Clav) 1 Each Tablet 1 Tab PO BID Tylenol (Acetaminophen) 325 Mg Tablet 650 Mg PO PRN Q4HRS PRN Prinivil (Lisinopril) 5 Mg Tablet 5 Mg PO DAILY Levothyroxine Sodium 75 Mcg Tablet 1 Tab PO DAILY Reported Citalopram Hbr (Citalopram Hydrobromide) 20 Mg Tablet 1 Tab PO DAILY Hydroxychloroquine Sulfate 200 Mg Tablet 1 Tab PO BID Methotrexate (Methotrexate Sodium) 2.5 Mg Tablet 4 Tab PO WEEKLY Folic Acid 1 Mg Tablet 1 Tab PO DAILY Proair Hfa Inhaler (Albuterol Sulfate) 8.5 Gm Hfa.aer.ad 1 Puff INH QIDPRN PRN Allergies Allergies: Coded Allergies: No Known Drug Allergies (Unverified , 09/30/14) ROS Review of System GENERAL: No history of weight change, weakness or fevers. SKIN: No bruising, hair changes or rashes. EYES: No blurred, double or loss of vision. NOSE AND THROAT: No history of nosebleeds, hoarseness or sore throat. HEART: Denies chest pain, denies palpitations. LUNGS: Denies cough, hemoptysis, wheezing or shortness of breath. GASTROINTESTINAL: Denies nausea, vomiting, abdominal pain. GENITOURINARY: Denies dysuria, frequency, urgency, hematuria. NEUROLOGIC: Weakness. Denies history of numbness, tingling, or tremor. PSYCHIATRIC: Denies anxiety, denies depression. ENDOCRINE: No history of heat or cold intolerance, polyuria or polydipsia. EXTREMITIES: Denies muscle weakness, joint pain, pain on walking or stiffness. Physical Exam Physical Exam General: Alert, Oriented X3, Cooperative, No acute distress HEENT: PERRLA, EOMI Lungs: Bilateral rales, Normal air movement Heart: RRR, no murmurs Cardiovascular: S1, S2 Abdomen: Normal bowel sounds, Soft, No tenderness Extremities: No clubbing, No cyanosis Skin: No rashes, No significant lesion Neuro: Normal speech, Normal tone, Sensation intact. Strength 3/5 in bilateral upper and lower extremities. Psych/Mental Status: Mental status NL, Mood NL Images Images PATIENT: JESSICA LEOS ACCOUNT: [id number] : 1935 LOCATION: ER AGE: 85 SEX: F EXAM STATUS: REG ER ORD. PHYSICIAN: KIMBERLY BLAND MD REASON: cough, chest pain on right PROCEDURE: CHEST AP ONLY EXAM: AP View of the chest DATE: 12/11/2020 8:10 PM INDICATION: Reason: cough, chest pain on right / Spl. Instructions: / History: COMPARISON: No Prior FINDINGS: The heart is not enlarged. Mediastinal and hilar contours are normal. Patchy opacity left midlung likely consolidative process such as pneumonia. Biapical patchy opacities. No pleural effusion or pneumothorax. IMPRESSION: Patchy multifocal opacities bilaterally may represent consolidative process such as pneumonia. Imaging follow-up to resolution is recommended. VTE Prophylaxis Ordered VTE Prophylaxis Devices: No VTE Pharmacological Prophylaxi: Yes Assessment/Plan Assessment/Plan Community-acquired pneumonia UTI Weakness Physical debility Rheumatoid arthritis Hypothyroidism HTN Plan: Will admit patient and treat with IV Rocephin and azithromycin Asymptomatic bacteriuria does not require treatment, however Rocephin will cover for pulmonary and urologic pathogens Symptomatic management PT/OT FEN - Cardiac diet PPX - Heparin FULL CODE Dispo - inpatient for above Advance Care Planning: Total time spent [id number] with patient 16 minutes in discussion with goals of care, comfort care, end-of-life care, pain management, code status; patient names her (Kiran Leos) as surrogate decision-maker. Justifications for Admission Other Justification YANY MATIAS MD Dec 12, 2020 21:33
[2020-12-12] MEDS: cefTRIAXone IV Push 1 GM VIAL. IVP SCH (21:36)
[2020-12-12] MEDS ORDERED: CALCIUM CARBONATE 500 MG TAB.CHEW PO PRN (21:45)
[2020-12-12] MEDS ORDERED: ACETAMINOPHEN 325 MG TABLET. PO PRN (21:45)
[2020-12-12] MEDS ORDERED: MAGNESIUM HYDROXIDE 2,400 MG/30 ML ORAL.SUSP. PO PRN (21:45)
[2020-12-12] MEDS ORDERED: ONDANSETRON PF 4 MG/2 ML VIAL. IVP PRN (21:45)
[2020-12-12] MEDS ORDERED: MAG HYDROX/ALUMINUM HYD/SIMETH 30 ML ORAL.SUSP PO PRN (21:45)
--- NOTE | 2020-12-12 21:45 | RAD ---
EXAM: AP View of the chest DATE: 12/12/2020 9:13 PM INDICATION: Reason: pneumonia weakness / Spl. Instructions: / History: COMPARISON: No Prior FINDINGS: Examination is limited by patient rotation. The heart is not enlarged. Mediastinal and hilar contours are normal. Patchy opacities left midlung and bilateral lung bases. Imaging follow-up to resolution is recommende d. No pleural effusion or pneumothorax. IMPRESSION: Patchy opacities left midlung and bilateral lung bases. Imaging follow-up to resolution is recommende d. Electronically signed by: Vince Carmona MD (12/12/2020 9:43 PM) YESSICA
[2020-12-12 23:25] VITALS: BP 115/49
[2020-12-13 03:12] VITALS: BP 118/74
[2020-12-13 05:34] LABS: CALCIUM 8.3 mg/dL (8.5-10.1); CREATININE 0.9 mg/dL (0.6-1.0); GFR 59.4; POTASSIUM 4.3 mmol/L (3.5-5.1)
[2020-12-13 05:42] LABS: BASO # 0.1 x10^3/uL (0.0-0.2); BASO % 1 % (0-3); EOS % 0 % (0-3); HEMATOCRIT 26.7 % (36.0-47.0); HEMOGLOBIN 8.7 g/dL (12.0-15.5); LYMPH # 1.2 x10^3/uL (1.0-4.8); LYMPH % 15 % (24-48); MEAN CORPUSCULAR HEMOGLOBIN 31 pg (25-35); MEAN CORPUSCULAR HGB CONC 33 g/dL (31-37); MEAN CORPUSCULAR VOLUME 96 fL (79-100); MONO # 0.8 x10^3/uL (0.0-1.1); MONO % 10 % (0-9); NEUT # 5.9 x10^3/uL (1.8-7.7); NEUT % 74 % (31-73); PLATELET COUNT 253 x10^3/uL (140-400); RED BLOOD COUNT 2.78 x10^6/uL (3.50-5.40); RED CELL DISTRIBUTION WIDTH 14.3 % (11.5-14.5); WHITE BLOOD COUNT 7.9 x10^3/uL (4.0-11.0)
[2020-12-13] MEDS: LEVOTHYROXINE 75 MCG TABLET PO SCH (06:06)
[2020-12-13 07:00] VITALS: BP 154/48
--- NOTE | 2020-12-13 08:26 | PDOC ---
[employer] PROGRESS NOTE Date of Service DOS: DATE: 12/13/20 TIME: 08:14 Chief Complaint Chief Complaint Community-acquired pneumonia UTI Weakness Physical debility Rheumatoid arthritis Hypothyroidism HTN Severe malnutrition Plan: Will admit patient and treat with IV Rocephin and azithromycin Asymptomatic bacteriuria does not require treatment, however Rocephin will cover for pulmonary and urologic pathogens Symptomatic management PT/OT FEN - Cardiac diet PPX - Heparin FULL CODE Dispo - inpatient for above Advance Care Planning: Total time spent [id number] with patient 16 minutes in discussion with goals of care, comfort care, end-of-life care, pain management, code status; patient names her (Kiran Leos) as surrogate decision-maker. History of Present Illness History of Present Illness Patient is a 85-year-old female with past medical history rheumatoid arthritis, hypothyroidism, HTN, who presents to the ED with complaints of generalized weakness over the past 3-4 days. She actually initially presented to the ED last night with similar complaints and was diagnosed with UTI and pneumonia. She was offered admission but refused, opting instead to go home with her spouse. She was sent home with Cefpodoxime, of which she has taken 2 doses. She returns tonight with continued weakness and her states that he is unable to care for her at home. Patient and are agreeable to admission with IV antibiotics. She denies any fever, chills, nausea, vomiting, dysuria, urinary frequency, urinary urgency, or hematuria. Will admit for further medical management. 12/13/2020: Afebrile, breathing room air. WBC 7.9, TSH 1.203. Procalcitonin < 0.10, which may be indicative of resolving pneumonia. Will continue current treatment and obtain CRP in the morning; if within normal limits her current symptoms of weakness may be postinfectious requiring, best treated with physical therapy. Discussed with patient, , and daughter; they are considering acute rehab. Vitals/I&O Vitals/I&O: Vital Signs Date Time Temp Pulse Resp B/P (MAP) Pulse Ox O2 Delivery O2 Flow Rate FiO2 12/13/20 07:55 Room Air 12/13/20 03:12 98.2 70 18 118/74 (89) 97 98.2 I & O 12/12/20 12/12/20 12/13/20 15:00 23:00 07:00 Intake Total 0 ml Balance 0 ml Physical Exam General: Alert, No acute distress Heart: Regular rate Lungs: Clear Abdomen: Soft, No tenderness Extremities: No clubbing, No cyanosis Skin: No rashes, No breakdown Labs Labs: Laboratory Tests Test 12/12/20 20:57 12/12/20 21:02 12/13/20 04:00 White Blood Count 8.8 x10^3/uL (4.0-11.0) 7.9 x10^3/uL (4.0-11.0) Red Blood Count 2.93 x10^6/uL (3.50-5.40) 2.78 x10^6/uL (3.50-5.40) Hemoglobin 8.9 g/dL (12.0-15.5) 8.7 g/dL (12.0-15.5) Hematocrit 27.6 % (36.0-47.0) 26.7 % (36.0-47.0) Mean Corpuscular Volume 94 fL (79-100) 96 fL (79-100) Mean Corpuscular Hemoglobin 31 pg (25-35) 31 pg (25-35) Mean Corpuscular Hemoglobin Concent 32 g/dL (31-37) 33 g/dL (31-37) Red Cell Distribution Width 14.5 % (11.5-14.5) 14.3 % (11.5-14.5) Platelet Count 272 x10^3/uL (140-400) 253 x10^3/uL (140-400) Neutrophils (%) (Auto) 80 % (31-73) 74 % (31-73) Lymphocytes (%) (Auto) 10 % (24-48) 15 % (24-48) Monocytes (%) (Auto) 9 % (0-9) 10 % (0-9) Eosinophils (%) (Auto) 0 % (0-3) 0 % (0-3) Basophils (%) (Auto) 1 % (0-3) 1 % (0-3) Neutrophils # (Auto) 7.0 x10^3/uL (1.8-7.7) 5.9 x10^3/uL (1.8-7.7) Lymphocytes # (Auto) 0.9 x10^3/uL (1.0-4.8) 1.2 x10^3/uL (1.0-4.8) Monocytes # (Auto) 0.7 x10^3/uL (0.0-1.1) 0.8 x10^3/uL (0.0-1.1) Eosinophils # (Auto) 0.0 x10^3/uL (0.0-0.7) 0.0 x10^3/uL (0.0-0.7) Basophils # (Auto) 0.1 x10^3/uL (0.0-0.2) 0.1 x10^3/uL (0.0-0.2) Sodium Level 132 mmol/L (136-145) 136 mmol/L (136-145) Potassium Level 3.9 mmol/L (3.5-5.1) 4.3 mmol/L (3.5-5.1) Chloride Level 98 mmol/L (98-107) 102 mmol/L (98-107) Carbon Dioxide Level 24 mmol/L (21-32) 24 mmol/L (21-32) Anion Gap 10 (6-14) 10 (6-14) Blood Urea Nitrogen 13 mg/dL (7-20) 12 mg/dL (7-20) Creatinine 1.1 mg/dL (0.6-1.0) 0.9 mg/dL (0.6-1.0) Estimated GFR (Cockcroft-Gault) 47.1 59.4 BUN/Creatinine Ratio 12 (6-20) Glucose Level 136 mg/dL (70-99) 106 mg/dL (70-99) Calcium Level 8.1 mg/dL (8.5-10.1) 8.3 mg/dL (8.5-10.1) Magnesium Level 2.1 mg/dL (1.8-2.4) Total Bilirubin 0.7 mg/dL (0.2-1.0) Aspartate Amino Transf (AST/SGOT) 15 U/L (15-37) Alanine Aminotransferase (ALT/SGPT) 9 U/L (14-59) Alkaline Phosphatase 94 U/L (46-116) Total Protein 6.6 g/dL (6.4-8.2) Albumin 2.7 g/dL (3.4-5.0) Albumin/Globulin Ratio 0.7 (1.0-1.7) Lactic Acid Level 1.4 mmol/L (0.4-2.0) Procalcitonin < 0.10 ng/mL (0.00-0.10) Thyroid Stimulating Hormone (TSH) 1.203 uIU/mL (0.358-3.74) Assessment and Plan Assessmemt and Plan Problems Medical Problems: (1) Weakness Status: Acute Comment Review of Relevant I have reviewed the following items sandra (where applicable) has been applied. Medications: Current Medications Medications (Trade) Dose Ordered Sig/Ang Route PRN Reason Start Time Stop Time Status Last Admin Dose Admin Ceftriaxone Sodium (Rocephin) 1 gm QHS IVP 12/12/20 21:30 12/16/20 21:01 12/12/20 21:36 Azithromycin (Zithromax) 500 mg 1X ONCE PO 12/12/20 21:30 12/12/20 21:31 DC 12/12/20 21:35 Levothyroxine Sodium (Synthroid) 75 mcg DAILY06 PO 12/13/20 06:00 12/13/20 06:06 Justifications for Admission Other Justification YANY MATIAS MD Dec 13, 2020 08:26
[2020-12-13] MEDS: FOLIC ACID 1 MG TABLET. PO SCH (08:34)
[2020-12-13] MEDS: AZITHROMYCIN 250 MG TABLET. PO SCH (08:34)
[2020-12-13] MEDS: HEPARIN for SUB-Q USE 5,000 UNIT/ML VIAL. SQ SCH ×2 (08:39→20:10)
[2020-12-13] MEDS ORDERED: LISINOPRIL 5 MG TABLET. PO SCH (09:00)
[2020-12-13 11:00] VITALS: BP 113/50
[2020-12-13] MEDS: CITALOPRAM 20 MG TABLET. PO SCH (11:26)
[2020-12-13] MEDS: HYDROXYCHLOROQUINE 200 MG TABLET PO SCH ×2 (11:26→20:09)
[2020-12-13] MEDS ORDERED: HALOPERIDOL LACTATE 5 MG/ML VIAL. IVP PRN (14:45)
[2020-12-13 15:00] VITALS: BP 128/53
[2020-12-13 19:00] VITALS: BP 121/40
[2020-12-13] MEDS: cefTRIAXone IV Push 1 GM VIAL. IVP SCH ×2 (20:09→21:00)
[2020-12-13 23:00] VITALS: BP 139/51
[2020-12-14 03:00] VITALS: BP 137/55
[2020-12-14 05:48] LABS: BASO % 1 % (0-3); EOS % 0 % (0-3); HEMATOCRIT 28.1 % (36.0-47.0); HEMOGLOBIN 9.1 g/dL (12.0-15.5); LYMPH # 0.9 x10^3/uL (1.0-4.8); LYMPH % 17 % (24-48); MEAN CORPUSCULAR HEMOGLOBIN 31 pg (25-35); MEAN CORPUSCULAR HGB CONC 33 g/dL (31-37); MEAN CORPUSCULAR VOLUME 94 fL (79-100); MONO # 0.6 x10^3/uL (0.0-1.1); MONO % 10 % (0-9); NEUT # 3.9 x10^3/uL (1.8-7.7); NEUT % 72 % (31-73); PLATELET COUNT 246 x10^3/uL (140-400); RED BLOOD COUNT 2.98 x10^6/uL (3.50-5.40); RED CELL DISTRIBUTION WIDTH 14.3 % (11.5-14.5); WHITE BLOOD COUNT 5.4 x10^3/uL (4.0-11.0)
[2020-12-14] MEDS: LEVOTHYROXINE 75 MCG TABLET PO SCH (06:10)
[2020-12-14 07:00] VITALS: BP 128/50
--- NOTE | 2020-12-14 07:13 | PDOC ---
[employer] PROGRESS NOTE Date of Service DOS: DATE: 12/14/20 TIME: 07:11 Chief Complaint Chief Complaint Community-acquired pneumonia UTI Weakness Physical debility Rheumatoid arthritis Hypothyroidism HTN Severe malnutrition Plan: Will admit patient and treat with IV Rocephin and azithromycin Asymptomatic bacteriuria does not require treatment, however Rocephin will cover for pulmonary and urologic pathogens Symptomatic management PT/OT FEN - Cardiac diet PPX - Heparin FULL CODE Dispo - inpatient for above Advance Care Planning: Total time spent [id number] with patient 16 minutes in discussion with goals of care, comfort care, end-of-life care, pain management, code status; patient names her (Kiran Leos) as surrogate decision-maker. History of Present Illness History of Present Illness Patient is a 85-year-old female with past medical history rheumatoid arthritis, hypothyroidism, HTN, who presents to the ED with complaints of generalized weakness over the past 3-4 days. She actually initially presented to the ED last night with similar complaints and was diagnosed with UTI and pneumonia. She was offered admission but refused, opting instead to go home with her spouse. She was sent home with Cefpodoxime, of which she has taken 2 doses. She returns tonight with continued weakness and her states that he is unable to care for her at home. Patient and are agreeable to admission with IV antibiotics. She denies any fever, chills, nausea, vomiting, dysuria, urinary frequency, urinary urgency, or hematuria. Will admit for further medical management. 12/13/2020: Afebrile, breathing room air. WBC 7.9, TSH 1.203. Procalcitonin < 0.10, which may be indicative of resolving pneumonia. Will continue current treatment and obtain CRP in the morning; if within normal limits her current symptoms of weakness may be postinfectious requiring, best treated with physical therapy. Discussed with patient, , and daughter; they are considering acute rehab. 12/14/2020: Patient resting in bed comfortably, breathing on room air, afebrile. Per daughter and , she is very lethargic today. WBC, procalcitonin, TSH within normal limits. Clinically very low suspicion of pneumonia, however seen on chest x-ray; will provide full 5-day treatment. I believe her current complaints of weakness are due to exacerbation of her rheumatoid arthritis; CRP 180.6. Worked with physical therapy, recommended rolling walker with acute rehab x2 weeks. Vitals/I&O Vitals/I&O: Vital Signs Date Time Temp Pulse Resp B/P (MAP) Pulse Ox O2 Delivery O2 Flow Rate FiO2 12/14/20 03:00 98.4 70 18 137/55 (82) 93 Room Air 98.4 I & O 12/13/20 12/13/20 12/14/20 15:00 23:00 07:00 Intake Total 0 ml 0 ml Balance 0 ml 0 ml Physical Exam General: Alert, No acute distress Heart: Regular rate Lungs: Clear Abdomen: Soft, No tenderness Extremities: No clubbing, No cyanosis Skin: No rashes, No breakdown Labs Labs: Laboratory Tests Test 12/14/20 04:05 White Blood Count 5.4 x10^3/uL (4.0-11.0) Red Blood Count 2.98 x10^6/uL (3.50-5.40) Hemoglobin 9.1 g/dL (12.0-15.5) Hematocrit 28.1 % (36.0-47.0) Mean Corpuscular Volume 94 fL (79-100) Mean Corpuscular Hemoglobin 31 pg (25-35) Mean Corpuscular Hemoglobin Concent 33 g/dL (31-37) Red Cell Distribution Width 14.3 % (11.5-14.5) Platelet Count 246 x10^3/uL (140-400) Neutrophils (%) (Auto) 72 % (31-73) Lymphocytes (%) (Auto) 17 % (24-48) Monocytes (%) (Auto) 10 % (0-9) Eosinophils (%) (Auto) 0 % (0-3) Basophils (%) (Auto) 1 % (0-3) Neutrophils # (Auto) 3.9 x10^3/uL (1.8-7.7) Lymphocytes # (Auto) 0.9 x10^3/uL (1.0-4.8) Monocytes # (Auto) 0.6 x10^3/uL (0.0-1.1) Eosinophils # (Auto) 0.0 x10^3/uL (0.0-0.7) Basophils # (Auto) 0.0 x10^3/uL (0.0-0.2) C-Reactive Protein, Quantitative 180.6 mg/L (0-3.3) Assessment and Plan Assessmemt and Plan Problems Medical Problems: (1) Weakness Status: Acute Comment Review of Relevant I have reviewed the following items sandra (where applicable) has been applied. Medications: Current Medications Medications (Trade) Dose Ordered Sig/Ang Route PRN Reason Start Time Stop Time Status Last Admin Dose Admin Azithromycin (Zithromax) 250 mg DAILY PO 12/13/20 09:00 12/18/20 08:59 12/13/20 08:34 Folic Acid (Folic Acid) 1 mg DAILY PO 12/13/20 09:00 12/13/20 08:34 Heparin Sodium (Porcine) (Heparin Sodium) 5,000 unit Q12HR SQ 12/13/20 09:00 12/13/20 20:10 Citalopram Hydrobromide (CeleXA) 20 mg DAILY PO 12/13/20 11:00 12/13/20 11:26 Hydroxychloroquine Sulfate (Plaquenil) 200 mg BID PO 12/13/20 11:00 12/13/20 20:09 Lorazepam (Ativan Inj) 1 mg PRN Q4HRS PRN IVP ANXIETY / AGITATION 12/13/20 15:00 12/13/20 15:04 Justifications for Admission Other Justification YANY MATIAS MD Dec 14, 2020 07:13
[2020-12-14] MEDS: AZITHROMYCIN 250 MG TABLET. PO SCH (08:27)
[2020-12-14] MEDS: HYDROXYCHLOROQUINE 200 MG TABLET PO SCH ×2 (08:27→20:32)
[2020-12-14] MEDS: CITALOPRAM 20 MG TABLET. PO SCH (08:27)
[2020-12-14] MEDS: FOLIC ACID 1 MG TABLET. PO SCH (08:27)
[2020-12-14] MEDS: HEPARIN for SUB-Q USE 5,000 UNIT/ML VIAL. SQ SCH ×2 (08:32→20:32)
[2020-12-14] MEDS: AMINO AC 3%/ELECTROLYTE/GLYCER 1,000 ML IV SCH ×2 (09:18→21:20)
[2020-12-14 11:00] VITALS: BP 137/50
[2020-12-14 15:00] VITALS: BP 94/46
[2020-12-14] MEDS ORDERED: METHOTREXATE SODIUM 2.5 MG TABLET PO SCH (18:00)
[2020-12-14 19:00] VITALS: BP 138/55
[2020-12-14] MEDS: cefTRIAXone IV Push 1 GM VIAL. IVP SCH (20:32)
[2020-12-14 23:00] VITALS: BP 121/51
[2020-12-15 03:00] VITALS: BP 130/52
[2020-12-15 04:49] LABS: BASO # 0.1 x10^3/uL (0.0-0.2); BASO % 1 % (0-3); EOS % 0 % (0-3); HEMATOCRIT 27.6 % (36.0-47.0); HEMOGLOBIN 9.1 g/dL (12.0-15.5); LYMPH # 1.2 x10^3/uL (1.0-4.8); LYMPH % 18 % (24-48); MEAN CORPUSCULAR HEMOGLOBIN 31 pg (25-35); MEAN CORPUSCULAR HGB CONC 33 g/dL (31-37); MEAN CORPUSCULAR VOLUME 94 fL (79-100); MONO # 0.6 x10^3/uL (0.0-1.1); MONO % 9 % (0-9); NEUT # 4.9 x10^3/uL (1.8-7.7); NEUT % 72 % (31-73); PLATELET COUNT 304 x10^3/uL (140-400); RED BLOOD COUNT 2.95 x10^6/uL (3.50-5.40); RED CELL DISTRIBUTION WIDTH 14.1 % (11.5-14.5); WHITE BLOOD COUNT 6.9 x10^3/uL (4.0-11.0)
[2020-12-15 05:01] LABS: CALCIUM 8.5 mg/dL (8.5-10.1); CREATININE 0.9 mg/dL (0.6-1.0); GFR 59.4
[2020-12-15] MEDS: LEVOTHYROXINE 75 MCG TABLET PO SCH (05:21)
[2020-12-15 07:00] VITALS: BP 128/55
[2020-12-15] MEDS: CITALOPRAM 20 MG TABLET. PO SCH (09:32)
[2020-12-15] MEDS: HYDROXYCHLOROQUINE 200 MG TABLET PO SCH ×2 (09:32→21:00)
[2020-12-15] MEDS: AZITHROMYCIN 250 MG TABLET. PO SCH (09:32)
[2020-12-15] MEDS: FOLIC ACID 1 MG TABLET. PO SCH (09:32)
[2020-12-15] MEDS: HEPARIN for SUB-Q USE 5,000 UNIT/ML VIAL. SQ SCH ×2 (09:39→21:00)
[2020-12-15 11:00] VITALS: BP 112/44
[2020-12-15] MEDS: AMINO AC 3%/ELECTROLYTE/GLYCER 1,000 ML IV SCH (11:26)
--- NOTE | 2020-12-15 11:56 | PDOC ---
[employer] PROGRESS NOTE Date of Service DOS: DATE: 12/15/20 TIME: 11:47 Chief Complaint Chief Complaint CC: weakness Confusion Community-acquired pneumonia UTI Metabolic Encephalopathy Physical debility Rheumatoid arthritis Hypothyroidism HTN Severe malnutrition History of Present Illness History of Present Illness 12/15 Pt seen and examined. CHRISTI RN and DW case management. Pt is pleasantly confused and has been the last several days according to nurses and patient's family. Pt family is in the room and says that her legs have been bothering her, but patient herself is not a good historian. HPI: Patient is a 85-year-old female with past medical history rheumatoid arthritis, hypothyroidism, HTN, who presents to the ED with complaints of generalized weakness over the past 3-4 days. She actually initially presented to the ED last night with similar complaints and was diagnosed with UTI and pneumonia. She was offered admission but refused, opting instead to go home with her spouse. She was sent home with Cefpodoxime, of which she has taken 2 doses. She returns tonight with continued weakness and her states that he is unable to care for her at home. Patient and are agreeable to admission with IV antibiotics. She denies any fever, chills, nausea, vomiting, dysuria, urinary frequency, urinary urgency, or hematuria. Will admit for further medical management. 12/13/2020: Afebrile, breathing room air. WBC 7.9, TSH 1.203. Procalcitonin <0.10, which may be indicative of resolving pneumonia. Will continue current treatment and obtain CRP in the morning; if within normal limits her current symptoms of weakness may be postinfectious requiring, best treated with physical therapy. Discussed with patient, , and daughter; they are considering acute rehab. 12/14/2020: Patient resting in bed comfortably, breathing on room air, afebrile. Per daughter and , she is very lethargic today. WBC, procalcitonin, TSH within normal limits. Clinically very low suspicion of pneumonia, however seen on chest x-ray; will provide full 5-day treatment. I believe her current complaints of weakness are due to exacerbation of her rheumatoid arthritis; CRP 180.6. Worked with physical therapy, recommended rolling walker with acute rehab x2 weeks. Vitals/I&O Vitals/I&O: Vital Signs Date Time Temp Pulse Resp B/P (MAP) Pulse Ox O2 Delivery O2 Flow Rate FiO2 12/15/20 07:00 98.5 68 18 128/55 (79) 95 Room Air 98.5 I & O 12/14/20 12/14/20 12/15/20 15:00 23:00 07:00 Intake Total 0 ml 20 ml Balance 0 ml 20 ml Physical Exam General: Alert, No acute distress, Other (Pt is not oriented and pleasantly confused.) Heart: Regular rate Lungs: Clear Abdomen: Soft, No tenderness Extremities: No clubbing, No cyanosis, Other (venous marking b/l on LE consistant with venostasis.) Skin: No rashes, No breakdown Labs Labs: Laboratory Tests Test 12/15/20 03:48 White Blood Count 6.9 x10^3/uL (4.0-11.0) Red Blood Count 2.95 x10^6/uL (3.50-5.40) Hemoglobin 9.1 g/dL (12.0-15.5) Hematocrit 27.6 % (36.0-47.0) Mean Corpuscular Volume 94 fL (79-100) Mean Corpuscular Hemoglobin 31 pg (25-35) Mean Corpuscular Hemoglobin Concent 33 g/dL (31-37) Red Cell Distribution Width 14.1 % (11.5-14.5) Platelet Count 304 x10^3/uL (140-400) Neutrophils (%) (Auto) 72 % (31-73) Lymphocytes (%) (Auto) 18 % (24-48) Monocytes (%) (Auto) 9 % (0-9) Eosinophils (%) (Auto) 0 % (0-3) Basophils (%) (Auto) 1 % (0-3) Neutrophils # (Auto) 4.9 x10^3/uL (1.8-7.7) Lymphocytes # (Auto) 1.2 x10^3/uL (1.0-4.8) Monocytes # (Auto) 0.6 x10^3/uL (0.0-1.1) Eosinophils # (Auto) 0.0 x10^3/uL (0.0-0.7) Basophils # (Auto) 0.1 x10^3/uL (0.0-0.2) Sodium Level 131 mmol/L (136-145) Potassium Level 4.0 mmol/L (3.5-5.1) Chloride Level 98 mmol/L (98-107) Carbon Dioxide Level 25 mmol/L (21-32) Anion Gap 8 (6-14) Blood Urea Nitrogen 18 mg/dL (7-20) Creatinine 0.9 mg/dL (0.6-1.0) Estimated GFR (Cockcroft-Gault) 59.4 Glucose Level 117 mg/dL (70-99) Calcium Level 8.5 mg/dL (8.5-10.1) Review of Systems Review of Systems: Denies abdominal pain. Denies SOA. Assessment and Plan Assessmemt and Plan Problems Medical Problems: (1) Weakness Status: Acute CC: weakness Confusion Community-acquired pneumonia UTI Metabolic Encephalopathy Physical debility Rheumatoid arthritis Hypothyroidism HTN Severe malnutrition Plan: Encourage PO intake IV antibiotics Duoneb nebulization PT/OT Home Meds PRN pain Cardiac diet DVT prophylaxis FULL CODE Discharge Disposition pending Comment Review of Relevant I have reviewed the following items sandra (where applicable) has been applied. Medications: Current Medications Medications (Trade) Dose Ordered Sig/Agn Route PRN Reason Start Time Stop Time Status Last Admin Dose Admin Methotrexate (Rheumatrex) 10 mg QSU@1800 PO 12/14/20 18:00 12/14/20 16:54 Justifications for Admission Other Justification ASHA ZHAO III DO Dec 15, 2020 11:56
--- NOTE | 2020-12-15 12:25 | NUR ---
LINDA following. Discussed with RN, pt from home with , room air, cardiac diet. Therapy recommending SNF. LINDA met with pt and pt's family at bedside - they would like referral sent to [facility]. LINDA faxed referral - awaiting acceptance decision and insurance auth. Pt currently on PPN which [facility] cannot do. LINDA will continue to follow. Addendum: 12/15/20 at 1436 by INOCENCIO MCKEON Pt accepted at [facility]. Awaiting further instruction of when pt may be close to discharge so [facility] can submit for insurance auth.
[2020-12-15] MEDS ORDERED: ALBUTEROL SULFATE 2.5 MG/3 ML NEBU. NEB PRN (12:30)
[2020-12-15 15:00] VITALS: BP 105/45
[2020-12-15 19:00] VITALS: BP 125/45
[2020-12-15] MEDS: cefTRIAXone IV Push 1 GM VIAL. IVP SCH (20:37)
[2020-12-15 23:00] VITALS: BP 143/59
[2020-12-16] MEDS: AMINO AC 3%/ELECTROLYTE/GLYCER 1,000 ML IV SCH ×2 (01:00→13:40)
[2020-12-16 07:00] VITALS: BP 106/55
[2020-12-16 07:26] LABS: BASO # 0.1 x10^3/uL (0.0-0.2); BASO % 1 % (0-3); EOS # 0.1 x10^3/uL (0.0-0.7); EOS % 1 % (0-3); HEMATOCRIT 28.5 % (36.0-47.0); HEMOGLOBIN 9.5 g/dL (12.0-15.5); LYMPH # 1.2 x10^3/uL (1.0-4.8); LYMPH % 21 % (24-48); MEAN CORPUSCULAR HEMOGLOBIN 31 pg (25-35); MEAN CORPUSCULAR HGB CONC 33 g/dL (31-37); MEAN CORPUSCULAR VOLUME 94 fL (79-100); MONO # 0.2 x10^3/uL (0.0-1.1); MONO % 4 % (0-9); NEUT % 73 % (31-73); PLATELET COUNT 319 x10^3/uL (140-400); RED BLOOD COUNT 3.04 x10^6/uL (3.50-5.40); RED CELL DISTRIBUTION WIDTH 14.5 % (11.5-14.5); WHITE BLOOD COUNT 5.5 x10^3/uL (4.0-11.0)
[2020-12-16] MEDS: LEVOTHYROXINE 75 MCG TABLET PO SCH (07:35)
[2020-12-16 07:49] LABS: CALCIUM 8.7 mg/dL (8.5-10.1); CREATININE 0.8 mg/dL (0.6-1.0); POTASSIUM 4.4 mmol/L (3.5-5.1)
[2020-12-16] MEDS: HYDROXYCHLOROQUINE 200 MG TABLET PO SCH ×2 (09:03→20:56)
[2020-12-16] MEDS: FOLIC ACID 1 MG TABLET. PO SCH (09:03)
[2020-12-16] MEDS: AZITHROMYCIN 250 MG TABLET. PO SCH (09:03)
[2020-12-16] MEDS: CITALOPRAM 20 MG TABLET. PO SCH (09:03)
[2020-12-16] MEDS: HEPARIN for SUB-Q USE 5,000 UNIT/ML VIAL. SQ SCH ×2 (09:09→21:04)
--- NOTE | 2020-12-16 10:06 | NUR ---
LINDA following. Discussed with RN, pt accepted at [facility] pending insurance auth, rapid COVID-[address] Land, pt will be off PPN at discharge and anticipate discharge to [facility] tomorrow pending insurance auth. LINDA will continue to follow. Addendum: 12/16/20 at 1543 by INOCENCIO MCKEON Insurance approved transfer to SNF for tomorrow (12/17/20). Dr. Land notified.
[2020-12-16 11:00] VITALS: BP 112/68
--- NOTE | 2020-12-16 11:50 | PDOC ---
[employer] PROGRESS NOTE Date of Service DOS: DATE: 12/16/20 TIME: 11:46 Chief Complaint Chief Complaint CC: weakness Confusion Community-acquired pneumonia UTI Metabolic Encephalopathy Physical debility Rheumatoid arthritis Hypothyroidism HTN Severe malnutrition History of Present Illness History of Present Illness 12/16 Pt seen and examined. CHRISTI RN and CHRISTI case management. Pt seems less confused today, but still not well oriented. Pt is sitting up and smiling. 12/15 Pt seen and examined. CHRISTI RN and CHRISTI case management. Pt is pleasantly confused and has been the last several days according to nurses and patient's family. Pt family is in the room and says that her legs have been bothering her, but patient herself is not a good historian. HPI: Patient is a 85-year-old female with past medical history rheumatoid arthritis, hypothyroidism, HTN, who presents to the ED with complaints of generalized wea kness over the past 3-4 days. She actually initially presented to the ED last night with similar complaints and was diagnosed with UTI and pneumonia. She was offered admission but refused, opting instead to go home with her spouse. She was sent home with Cefpodoxime, of which she has taken 2 doses. She returns tonight with continued weakness and her states that he is unable to care for her at home. Patient and are agreeable to admission with IV antibiotics. She denies any fever, chills, nausea, vomiting, dysuria, urinary frequency, urinary urgency, or hematuria. Will admit for further medical management. 12/13/2020: Afebrile, breathing room air. WBC 7.9, TSH 1.203. Procalcitonin <0.10, which may be indicative of resolving pneumonia. Will continue current treatment and obtain CRP in the morning; if within normal limits her current symptoms of weakness may be postinfectious requiring, best treated with physical therapy. Discussed with patient, , and daughter; they are considering acute rehab. 12/14/2020: Patient resting in bed comfortably, breathing on room air, afebrile. Per daughter and , she is very lethargic today. WBC, procalcitonin, TSH within normal limits. Clinically very low suspicion of pneumonia, however seen on chest x-ray; will provide full 5-day treatment. I believe her current complaints of weakness are due to exacerbation of her rheumatoid arthritis; CRP 180.6. Worked with physical therapy, recommended rolling walker with acute rehab x2 weeks. Vitals/I&O Vitals/I&O: Vital Signs Date Time Temp Pulse Resp B/P (MAP) Pulse Ox O2 Delivery O2 Flow Rate FiO2 12/16/20 07:00 98.5 72 16 106/55 (72) 98 Room Air 98.5 I & O 12/15/20 12/15/20 12/16/20 15:00 23:00 07:00 Intake Total 0 ml Output Total 600 ml Balance -600 ml Physical Exam General: Alert, Cooperative, No acute distress, Other (Pt is not oriented and pleasantly confused.) Heart: Regular rate, Normal S1, Normal S2, No murmurs Lungs: Clear Abdomen: Soft, No tenderness, No hepatosplenomegaly Extremities: No clubbing, No cyanosis, Normal pulses, Other (venous marking b/l on LE consistant with venostasis.) Skin: No rashes, No breakdown, No significant lesion, Other (venous marking b/l on LE consistant with venostasis.) Labs Labs: Laboratory Tests Test 12/15/20 17:00 12/16/20 03:20 SARS-CoV-2 Antigen (Rapid) Negative (NEGATIVE) White Blood Count 5.5 x10^3/uL (4.0-11.0) Red Blood Count 3.04 x10^6/uL (3.50-5.40) Hemoglobin 9.5 g/dL (12.0-15.5) Hematocrit 28.5 % (36.0-47.0) Mean Corpuscular Volume 94 fL (79-100) Mean Corpuscular Hemoglobin 31 pg (25-35) Mean Corpuscular Hemoglobin Concent 33 g/dL (31-37) Red Cell Distribution Width 14.5 % (11.5-14.5) Platelet Count 319 x10^3/uL (140-400) Neutrophils (%) (Auto) 73 % (31-73) Lymphocytes (%) (Auto) 21 % (24-48) Monocytes (%) (Auto) 4 % (0-9) Eosinophils (%) (Auto) 1 % (0-3) Basophils (%) (Auto) 1 % (0-3) Neutrophils # (Auto) 4.0 x10^3/uL (1.8-7.7) Lymphocytes # (Auto) 1.2 x10^3/uL (1.0-4.8) Monocytes # (Auto) 0.2 x10^3/uL (0.0-1.1) Eosinophils # (Auto) 0.1 x10^3/uL (0.0-0.7) Basophils # (Auto) 0.1 x10^3/uL (0.0-0.2) Sodium Level 133 mmol/L (136-145) Potassium Level 4.4 mmol/L (3.5-5.1) Chloride Level 98 mmol/L (98-107) Carbon Dioxide Level 26 mmol/L (21-32) Anion Gap 9 (6-14) Blood Urea Nitrogen 18 mg/dL (7-20) Creatinine 0.8 mg/dL (0.6-1.0) Estimated GFR (Cockcroft-Gault) 68.0 Glucose Level 86 mg/dL (70-99) Calcium Level 8.7 mg/dL (8.5-10.1) Review of Systems Review of Systems: Denies abdominal pain. Denies SOA. Assessment and Plan Assessmemt and Plan Problems Medical Problems: (1) Weakness Status: Acute Assessment: CC: weakness Confusion Community-acquired pneumonia UTI Metabolic Encephalopathy Physical debility Rheumatoid arthritis Hypothyroidism HTN Severe malnutrition Plan: Encourage PO intake IV antibiotics Duoneb nebulization PT/OT Home Meds PRN pain Cardiac diet DVT prophylaxis FULL CODE Plan to D/C tomorrow to SNU in the AM. Comment Review of Relevant I have reviewed the following items sandra (where applicable) has been applied. Justifications for Admission Other Justification ASHA ZHAO III DO Dec 16, 2020 11:50
[2020-12-16 15:00] VITALS: BP 102/42
[2020-12-16] MEDS: traMADol 50 MG TABLET PO PRN (18:02)
[2020-12-16 19:00] VITALS: BP 124/47
[2020-12-16] MEDS: cefTRIAXone IV Push 1 GM VIAL. IVP SCH (20:57)
[2020-12-16 23:14] VITALS: BP 123/47
[2020-12-17] MEDS: AMINO AC 3%/ELECTROLYTE/GLYCER 1,000 ML IV SCH ×2 (02:21→13:00)
[2020-12-17 02:53] VITALS: BP 119/48
[2020-12-17 05:27] LABS: BASO # 0.1 x10^3/uL (0.0-0.2); BASO % 1 % (0-3); EOS # 0.1 x10^3/uL (0.0-0.7); EOS % 2 % (0-3); HEMATOCRIT 27.9 % (36.0-47.0); HEMOGLOBIN 9.1 g/dL (12.0-15.5); LYMPH # 1.1 x10^3/uL (1.0-4.8); LYMPH % 24 % (24-48); MEAN CORPUSCULAR HEMOGLOBIN 30 pg (25-35); MEAN CORPUSCULAR HGB CONC 32 g/dL (31-37); MEAN CORPUSCULAR VOLUME 93 fL (79-100); MONO # 0.2 x10^3/uL (0.0-1.1); MONO % 5 % (0-9); NEUT # 3.1 x10^3/uL (1.8-7.7); NEUT % 68 % (31-73); PLATELET COUNT 339 x10^3/uL (140-400); RED BLOOD COUNT 2.99 x10^6/uL (3.50-5.40); RED CELL DISTRIBUTION WIDTH 14.4 % (11.5-14.5); WHITE BLOOD COUNT 4.5 x10^3/uL (4.0-11.0)
[2020-12-17 05:45] LABS: CALCIUM 8.6 mg/dL (8.5-10.1); CREATININE 0.9 mg/dL (0.6-1.0); GFR 59.4; POTASSIUM 4.8 mmol/L (3.5-5.1)
[2020-12-17] MEDS: LEVOTHYROXINE 75 MCG TABLET PO SCH (05:56)
[2020-12-17 07:00] VITALS: BP 124/45
--- NOTE | 2020-12-17 08:56 | SNU/HH DC ---
DISCHARGE ORDERS DISCHARGE INFORMATION: FINAL DIAGNOSIS Problems Medical Problems: (1) Weakness Status: Acute CONDITION ON DISCHARGE: Stable CODE STATUS: Code Status: Full SENIOR CARE: SNF STAY <30 DAYS: Yes HOSPICE: HOSPICE: No HOSPICE EVAL & TREAT: No LTAC: ADMIT TO LTAC: No POST DISCHARGE ORDERS: ACTIVITY ORDERS: Activity as tolerated WEIGHT BEARING STATUS: As tolerated DIET AFTER DISCHARGE: Cardiac CHECKS AFTER DISCHARGE: CHECKS AFTER DISCHARGE: Check blood press - daily TREATMENT/EQUIPMENT ORDERS: Physical Therapy For: Evalulation/Treatment Occupational Therapy For: Evaluation/Treatment Speech Language Pathology For: Evaluation/Treatment DISCHARGE MEDICATIONS: Home Meds Active Scripts Cefpodoxime Proxetil (CEFPODOXIME PROXETIL) 200 Mg Tablet, 1 TAB PO BID for antibiotic for 5 Days, #10 TAB Prov:KIMBERLY BLAND MD 12/11/20 Amoxicillin/Potassium Clav (AUGMENTIN 875-125 TABLET) 1 Each Tablet, 1 TAB PO BID, #14 TAB Prov:ALLA PETER MD 10/10/16 Acetaminophen (TYLENOL) 325 Mg Tablet, 650 MG PO PRN Q4HRS PRN for MILD PAIN / TEMP, #1 TAB Prov:MINOR RODRIGUEZ MD 04/15/15 Levothyroxine Sodium (LEVOTHYROXINE SODIUM) 75 Mcg Tablet, 1 TAB PO DAILY, #30 TAB 5 Refills Prov:MINOR RODRIGUEZ MD 04/15/15 Reported Medications Citalopram Hydrobromide (CITALOPRAM HBR) 20 Mg Tablet, 1 TAB PO DAILY, #30 TAB 5 Refills 10/06/16 Hydroxychloroquine Sulfate (HYDROXYCHLOROQUINE SULFATE) 200 Mg Tablet, 1 TAB PO BID, #180 TAB 1 Refill 10/06/16 Methotrexate Sodium (METHOTREXATE) 2.5 Mg Tablet, 4 TAB PO WEEKLY, #16 TAB 1 Refill 10/06/16 Folic Acid (FOLIC ACID) 1 Mg Tablet, 1 TAB PO DAILY, #90 TAB 1 Refill 10/06/16 Albuterol Sulfate (PROAIR HFA INHALER) 8.5 Gm Hfa.aer.ad, 1 PUFF INH QIDPRN PRN for SHORTNESS OF BREATH, INHALER 0 Refills 10/06/16 ASHA ZHAO III DO Dec 17, 2020 08:56
--- NOTE | 2020-12-17 09:15 | PDOC ---
[employer] PROGRESS NOTE Date of Service DOS: DATE: 12/17/20 TIME: 09:07 Chief Complaint Chief Complaint CC: weakness Confusion Community-acquired pneumonia UTI Metabolic Encephalopathy Physical debility Rheumatoid arthritis Hypothyroidism HTN Severe malnutrition History of Present Illness History of Present Illness 12/17 Pt seen and examined. CHRISTI RN and CHRISTI case management. Pt is in pain in legs and in left arm. Pt has no appetite and it is hard to convince her to eat. 12/16 Pt seen and examined. CHRISTI RN and CHRISTI case management. Pt seems less confused today, but still not well oriented. Pt is sitting up and smiling. 12/15 Pt seen and examined. CHRISTI RN and CHRISTI case management. Pt is pleasantly confused and has been the last several days according to nurses and patient's family. Pt family is in the room and says that her legs have been bothering her, but patient herself is not a good historian. HPI: Patient is a 85-year-old female with past medical history rheumatoid arthritis, hypothyroidism, HTN, who presents to the ED with complaints of generalized weakness over the past 3-4 days. She actually initially presented to the ED last night with similar complaints and was diagnosed with UTI and pneumonia. She was offered admission but refused, opting instead to go home with her s pouse. She was sent home with Cefpodoxime, of which she has taken 2 doses. She returns tonight with continued weakness and her states that he is unable to care for her at home. Patient and are agreeable to admission with IV antibiotics. She denies any fever, chills, nausea, vomiting, dysuria, urinary frequency, urinary urgency, or hematuria. Will admit for further medical management. 12/13/2020: Afebrile, breathing room air. WBC 7.9, TSH 1.203. Procalcitonin <0.10, which may be indicative of resolving pneumonia. Will continue current treatment and obtain CRP in the morning; if within normal limits her current symptoms of weakness may be postinfectious requiring, best treated with physical therapy. Discussed with patient, , and daughter; they are considering acute rehab. 12/14/2020: Patient resting in bed comfortably, breathing on room air, afebrile. Per daughter and , she is very lethargic today. WBC, procalcitonin, TSH within normal limits. Clinically very low suspicion of pneumonia, however seen on chest x-ray; will provide full 5-day treatment. I believe her current complaints of weakness are due to exacerbation of her rheumatoid arthritis; CRP 180.6. Worked with physical therapy, recommended rolling walker with acute rehab x2 weeks. Vitals/I&O Vitals/I&O: Vital Signs Date Time Temp Pulse Resp B/P (MAP) Pulse Ox O2 Delivery O2 Flow Rate FiO2 12/17/20 07:00 97.6 68 18 124/45 (71) 94 Room Air 97.6 I & O 12/16/20 12/16/20 12/17/20 15:00 23:00 07:00 Intake Total 0 ml Output Total 600 ml 900 ml Balance -600 ml -900 ml Physical Exam General: Alert, Cooperative, No acute distress, Other (Pt is not oriented and pleasantly confused.) Heart: Regular rate, Normal S1, Normal S2, No murmurs Lungs: Clear Abdomen: Soft, No tenderness, No hepatosplenomegaly Extremities: No clubbing, No cyanosis, Normal pulses, Other (venous marking b/l on LE consistant with venostasis.) Skin: No rashes, No breakdown, No significant lesion, Other (venous marking b/l on LE consistant with venostasis.) Labs Labs: Laboratory Tests Test 12/17/20 04:40 White Blood Count 4.5 x10^3/uL (4.0-11.0) Red Blood Count 2.99 x10^6/uL (3.50-5.40) Hemoglobin 9.1 g/dL (12.0-15.5) Hematocrit 27.9 % (36.0-47.0) Mean Corpuscular Volume 93 fL (79-100) Mean Corpuscular Hemoglobin 30 pg (25-35) Mean Corpuscular Hemoglobin Concent 32 g/dL (31-37) Red Cell Distribution Width 14.4 % (11.5-14.5) Platelet Count 339 x10^3/uL (140-400) Neutrophils (%) (Auto) 68 % (31-73) Lymphocytes (%) (Auto) 24 % (24-48) Monocytes (%) (Auto) 5 % (0-9) Eosinophils (%) (Auto) 2 % (0-3) Basophils (%) (Auto) 1 % (0-3) Neutrophils # (Auto) 3.1 x10^3/uL (1.8-7.7) Lymphocytes # (Auto) 1.1 x10^3/uL (1.0-4.8) Monocytes # (Auto) 0.2 x10^3/uL (0.0-1.1) Eosinophils # (Auto) 0.1 x10^3/uL (0.0-0.7) Basophils # (Auto) 0.1 x10^3/uL (0.0-0.2) Sodium Level 127 mmol/L (136-145) Potassium Level 4.8 mmol/L (3.5-5.1) Chloride Level 95 mmol/L (98-107) Carbon Dioxide Level 26 mmol/L (21-32) Anion Gap 6 (6-14) Blood Urea Nitrogen 23 mg/dL (7-20) Creatinine 0.9 mg/dL (0.6-1.0) Estimated GFR (Cockcroft-Gault) 59.4 Glucose Level 99 mg/dL (70-99) Calcium Level 8.6 mg/dL (8.5-10.1) Review of Systems Review of Systems: Denies abdominal pain. Denies Chest pain. Assessment and Plan Assessmemt and Plan Problems Medical Problems: (1) Weakness Status: Acute Assessment: CC: weakness Confusion Community-acquired pneumonia UTI Metabolic Encephalopathy Physical debility Rheumatoid arthritis Hypothyroidism HTN Severe malnutrition Plan: Plan to D/C to SNU today Encourage PO intake IV antibiotics Duoneb nebulization PT/OT Home Meds PRN pain Cardiac diet DVT prophylaxis FULL CODE Comment Review of Relevant I have reviewed the following items sandra (where applicable) has been applied. Justifications for Admission Other Justification ASHA ZHAO III DO Dec 17, 2020 09:15
--- NOTE | 2020-12-17 10:12 | NUR ---
SW following. Discussed with RN, discharge orders faxed to [facility]. Stretcher transportation arranged for 1600. RN and family notified.
[2020-12-17] MEDS: CITALOPRAM 20 MG TABLET. PO SCH (10:20)
[2020-12-17] MEDS: HYDROXYCHLOROQUINE 200 MG TABLET PO SCH (10:20)
[2020-12-17] MEDS: traMADol 50 MG TABLET PO PRN (10:20)
[2020-12-17] MEDS: AZITHROMYCIN 250 MG TABLET. PO SCH (10:20)
[2020-12-17] MEDS: FOLIC ACID 1 MG TABLET. PO SCH (10:20)
[2020-12-17] MEDS: HEPARIN for SUB-Q USE 5,000 UNIT/ML VIAL. SQ SCH (10:34)
[2020-12-17 11:00] VITALS: BP 114/44
[2020-12-17 15:00] VITALS: BP 110/48
--- NOTE | 2020-12-17 17:36 | NUR ---
Patient discharge to [facility] nursing [facility] medicine today via stretcher, accompanied by ambulance personal. Patient is stable, IV removed, and discharge packet given to transporter. Nursing communication was called to [facility] and the nurse taking report was Libby MCKEON.
--- NOTE | 2020-12-18 01:25 | DS ---
DATE OF DISCHARGE: 12/17/2020 ADMISSION DIAGNOSES: Weakness and pneumonia and metabolic encephalopathy, urinary tract infection. DISCHARGE DIAGNOSES: Resolving weakness, resolving pneumonia, resolving metabolic encephalopathy, resolving urinary tract infection, rheumatoid arthritis, hypothyroidism, malnutrition, hypertension, B12 deficiency, depression, anxiety, osteoarthritis, rheumatoid arthritis, urinary incontinence, appendectomy, cholecystectomy, hysterectomy. CONSULTS: None. PROCEDURES: None. HOSPITAL COURSE: The patient is a pleasant elderly female who presented with metabolic encephalopathy, was noted to have a UTI and pneumonia. She was admitted. We gave her IV fluids, IV antibiotics. We did physical therapy and occupational therapy. Continued her home meds. DVT prophylaxis and over the next few days, she seems to have returned to baseline. Today, I saw and examined her. She is more alert and doing better. Still has some chronic pain from her arthritis. The plan is to get her to alf. DISPOSITION: snf. ACTIVITY: As tolerated. DIET: Low sodium. DISCHARGE MEDICATIONS: Please see MRAD. Tylenol p.r.n., albuterol 1 puff b.i.d., Augmentin 875 b.i.d., citalopram 20 a day, folic acid 1 a day, hydroxychloroquine 200 b.i.d., Synthroid 75 a day, methotrexate 4 tablets weekly. Total time 36 minutes. SHERRY/ALVARADO/LAVINIA DR: SHERRY/juan TID: [id number]
== END 2020-12-17 18:01 | DRG 177 ==
LOC: ER 19:58 → ED HOLD 22:13 → 4 NORTH 23:30
PROVIDERS: ADMIT Family Medicine; ATTEND Family Medicine
DX: J15.6 Pneumonia due to other Gram-negative bacteria (principal); E43 Unspecified severe protein-calorie malnutrition; G93.41 Metabolic encephalopathy; N39.0 Urinary tract infection, site not specified; E03.9 Hypothyroidism, unspecified; E53.8 Deficiency of other specified B group vitamins; E78.00 Pure hypercholesterolemia, unspecified; E78.5 Hyperlipidemia, unspecified; F03.90 Unspecified dementia, unspecified severity, without behavioral disturbance, psychotic disturbance, mood disturbance, and anxiety; F32.9 Major depressive disorder, single episode, unspecified; F41.9 Anxiety disorder, unspecified; G89.29 Other chronic pain; I10 Essential (primary) hypertension; M06.9 Rheumatoid arthritis, unspecified; Z82.49 Family history of ischemic heart disease and other diseases of the circulatory system; Z90.49 Acquired absence of other specified parts of digestive tract; Z90.710 Acquired absence of both cervix and uterus; Z20.822 Contact with and (suspected) exposure to COVID-19
CPT/HCPCS: 36415; 71045; 80048; 80053; 83605; 83735; 84145; 84443; 85025; 86140; 87426; J0696; J1644; J2060; J2405; J3490; J8610; 97116-GP; 97530-GO; 97530-GP; 99285-25; G0378

== ENCOUNTER → 2021-01-26 | Outpatient (CLI) | payer MEDICARE ==
--- NOTE | 2021-01-26 15:09 | RAD ---
US BILATERAL LOWEREXTREMITY VENOUS DOPPLER History: Reason: B/L EDEMA / Spl. Instructions: / History: Comparison: None. Technique: Multiple longitudinal and transverse high resolution real-time images of the venous system of bilateral lower extremity were obtained with color and Doppler sampling. Findings: Right lower extremity: Patent right common femoral, deep femoral, superficial femoral, popliteal and calf veins. Left lower extremity: Nonocclusive thrombus within the left popliteal vein. Patent left common femora l, deep femoral, superficial femoral and calf veins. Right popliteal fossa cyst measures 3.2 x 2.4 x 0.9 cm. Impression: 1. Deep vein nonocclusive thrombus within the LEFT popliteal vein. 2. Right popliteal fossa cyst. FOR INTERNAL CODING PURPOSES Critical result: Findings discussed with Dr. Larsen at 01/26/2021 3:01 PM. RESULT CODE: (C) Electronically signed by: Emanuel Wall DO (01/26/2021 3:06 PM) [facility]
--- NOTE | 2021-01-26 16:24 | RAD ---
EXAM: Chest, 2 views. HISTORY: Edema. COMPARISON: None. FINDINGS: 2 views of the chest are obtained. There is no infiltrate, pleural effusion or pneumothorax . There is a prominent cardiac silhouette. There are calcified granulomas. There is hyperinflation du e to emphysema. There are mild chronic appearing thoracic compression deformities and there is thorac ic kyphosis. IMPRESSION: No acute pulmonary finding. Electronically signed by: Zina Jean MD (01/26/2021 4:22 PM) [id number]
== END ==
LOC: US 13:56
PROVIDERS: ATTEND Family Medicine
DX: I82.432 Acute embolism and thrombosis of left popliteal vein (principal); M71.21 Synovial cyst of popliteal space [Baker], right knee; J84.10 Pulmonary fibrosis, unspecified; J43.9 Emphysema, unspecified; J98.11 Atelectasis; R93.89 Abnormal findings on diagnostic imaging of other specified body structures; R60.0 Localized edema
CPT/HCPCS: 71046; 93970

== ENCOUNTER 2021-10-08 00:13 | Inpatient (IN) | payer MEDICARE ==
[2021-10-07 23:50] VITALS: BP 153/65
[~2021-10-08] VITALS: Ht 152.4 cm; Wt 52.3 kg
[~2021-10-08 00:13] MED LIST changes: +BUPR100T16 PO; -BUPR100T8 PO
--- NOTE | 2021-10-08 00:28 | NUR ---
admit from [facility]- 86 year old female here with a small bowel obstruction. Patient has dementia-unable to complete admission. Dr Nguyen called admission orders received. [facility] states that they had placed an NG tube and patient promptly pulled it out. They attempted x3 and patient refused to have it placed. Dr. Nguyen states ok to leave out. Will evaluate the need in am.
[2021-10-08] MEDS ORDERED: fentaNYL PF VIAL 100 MCG/2 ML VIAL IVP PRN (01:00)
[2021-10-08] MEDS ORDERED: ONDANSETRON PF 4 MG/2 ML VIAL. IVP PRN (01:00)
[2021-10-08] MEDS: IV NORMAL SALINE 1000ML BAG 1,000 ML IV SCH ×2 (01:00→17:41)
[2021-10-08] MEDS ORDERED: BUSP10TA PO (01:19)
[2021-10-08] MEDS ORDERED: APIX5TAB PO (01:19)
[2021-10-08 03:00] VITALS: BP 133/58
[2021-10-08 07:00] VITALS: BP 147/58
[2021-10-08 07:20] LABS: HEMATOCRIT 34.1 % (36.0-47.0); HEMOGLOBIN 11.7 g/dL (12.0-15.5); RED BLOOD COUNT 3.49 x10^6/uL (3.50-5.40); RED CELL DISTRIBUTION WIDTH 14.6 % (11.5-14.5); WHITE BLOOD COUNT 8.2 x10^3/uL (4.0-11.0)
[2021-10-08 07:35] LABS: ALBUMIN 3.4 g/dL (3.4-5.0); ALBUMIN/GLOBULIN RATIO 0.9 (1.0-1.7); CALCIUM 8.8 mg/dL (8.5-10.1); CREATININE 1.2 mg/dL (0.6-1.0); GFR 42.5; POTASSIUM 3.5 mmol/L (3.5-5.1); TOTAL BILIRUBIN 1.4 mg/dL (0.2-1.0); TOTAL PROTEIN 7.1 g/dL (6.4-8.2)
--- NOTE | 2021-10-08 10:10 | HP ---
DATE OF SERVICE: 10/08/2021 ADMIT DATE: 10/08/2021 CHIEF COMPLAINT: Nausea, vomiting, abdominal pain. HISTORY OF PRESENT ILLNESS: The patient is a pleasant 86-year-old female who has advanced dementia. She lives at home with her , Kiran who is a retired ordnance equipment worker. Basically last night, she developed nausea, vomiting, abdominal pain. He brought her in for evaluation. Imaging studies were suspicious for small bowel obstruction. She has now been admitted and we are consulting General Surgery. PAST MEDICAL HISTORY: Advanced dementia, UTIs, osteoarthritis, asthma, chronic anticoagulation, depression, anxiety, hypothyroidism. ALLERGIES: None. FAMILY HISTORY: Hypertension. SOCIAL HISTORY: She lives at home with her , Kiran, he is retired ordnance equipment worker. She does not drink, smoke or take drugs. MEDICATIONS: Reviewed. She is on 11 meds including Augmentin, hydroxychloroquine, methotrexate, albuterol, Eliquis, Tylenol, citalopram, bupropion, Synthroid, and vitamins. REVIEW OF SYSTEMS: Difficult to obtain as the patient is confused. PHYSICAL EXAMINATION: VITALS: Within normal limits and are stable. GENERAL: She is pleasantly confused. HEENT: Normal cephalic atraumatic, external auditory canals are patent. EYES: Extraocular muscles are intact, pupils are equally round and reactive to light and accommodation. MUSCULOSKELETAL: Well developed, well nourished, good range of motion. ENDOCRINE: No thyromegaly was palpated. LYMPHATICS: No cervical chain or axillary nodes were noted. HEMATOPOIETIC: No bruising. NECK: Supple, no JVD, no thyromegaly was noted. LUNGS: Clear to auscultation in all lung stern without rhonchi or wheezing. HEART: RRR, S1, S2 present. Peripheral pulses intact, no obvious murmurs were noted. ABDOMEN: Soft, nontender. Positive bowel sounds no organomegaly, normal bowel sounds. EXTREMITIES: She has mitts on for her safety. NEUROLOGIC: She is pleasantly confused. PSYCHIATRIC: She is pleasantly confused. SKIN: No ulcerations or rashes, good skin turgor, no jaundice. VASCULAR: Good capillary refill, neurovascular bundle appears to be intact. LABORATORY DATA: White count 8, hemoglobin 11.7, platelets 284. Electrolytes are normal. KUB showed a possible small bowel obstruction. ASSESSMENT AND PLAN: Small bowel obstruction in an elderly female with the above-mentioned comorbidities. For now, we are consulting General Surgery. P.r.n. antiemetics. Home meds when possible. IV fluids. Deep venous thrombosis prophylaxis. Full code. SHERRY/EDWARD DR: Farida TID: [id number]
[2021-10-08 11:00] VITALS: BP 142/64
--- NOTE | 2021-10-08 11:46 | PDOC2 ---
CONSULT Date of Consult Date of Consult DATE: 10/08/21 TIME: 11:43 Reason for Consult Reason for Consult: Abdominal pain nausea vomiting Referring Physician Referring Physician: Shanda Identification/Chief Complaint Chief Complaint Nausea and vomiting Source Source: Caregiver, Chart review History of Present Illness Reason for Visit: 86-year-old female with dementia had a 24-hour history of developing abdominal pain nausea and vomiting last evening continued through the night she is brought to urgent care for evaluation. CT scan at that time showed dilated loops of small bowel concerning for small bowel obstruction. Patient was admitted to the hospital for further evaluation and treatment. She is currently resting comfortably in bed denies any abdominal pain states that she is a little nauseated but has had no more vomiting. Her states she has not had an episode like this in the past. Past Medical History Cardiovascular: HTN, Hyperlipidemia CENTRAL NERVOUS SYSTEM: Dementia, Vertigo Heme/Onc: B12 deficiency Psych: Anxiety, Depression Musculoskeletal: Osteoarthritis, Other Renal/: Urinary Incontinence Endocrine: Hypothyroidism Past Surgical History Past Surgical History: Appendectomy, Cholecystectomy, Hysterectomy Family History Family History: Coronary Artery Disease Social History ALCOHOL: none Drugs: None Lives: with Family Current Medications Current Medications Current Medications Sodium Chloride 1,000 ml @ 75 mls/hr [id number] IV Last administered on 10/08/21at 01:00; Start 10/08/21 at 01:00 Fentanyl Citrate (Fentanyl 2ml Vial) 25 mcg PRN Q4HRS PRN IVP SEVERE PAIN 7-10; Start 10/08/21 at 01:00 Ondansetron HCl (Zofran) 4 mg PRN Q4HRS PRN IVP NAUSEA/VOMITING 1ST CHOICE; Start 10/08/21 at 01:00 Active Scripts Active Cefpodoxime Proxetil 200 Mg Tablet 1 Tab PO BID 5 Days Augmentin 875-125 Tablet (Amoxicillin/Potassium Clav) 1 Each Tablet 1 Tab PO BID Tylenol (Acetaminophen) 325 Mg Tablet 650 Mg PO PRN Q4HRS PRN Levothyroxine Sodium 75 Mcg Tablet 1 Tab PO DAILY Reported Eliquis (Apixaban) 5 Mg Tablet 1 Tab PO BID Buspirone Hcl 10 Mg Tablet 1 Tab PO TID PRN Citalopram Hbr (Citalopram Hydrobromide) 20 Mg Tablet 1 Tab PO DAILY Hydroxychloroquine Sulfate 200 Mg Tablet 1 Tab PO BID Methotrexate (Methotrexate Sodium) 2.5 Mg Tablet 4 Tab PO WEEKLY Folic Acid 1 Mg Tablet 1 Tab PO DAILY Proair Hfa Inhaler (Albuterol Sulfate) 8.5 Gm Hfa.aer.ad 1 Puff INH QIDPRN PRN Allergies Allergies: Coded Allergies: No Known Drug Allergies (Unverified , 09/30/14) ROS General: No: Chills, Night Sweats, Fatigue, Malaise, Appetite, Other PSYCHOLOGICAL ROS: No: Anxiety, Behavioral Disorder, Concentration difficultie, Decreased libido, Depression, Disorientation, Hallucinations, Hostility, Irrita blity, Memory difficulties, Mood Swings, Obsessive thoughts, Physical abuse, Sexual abuse, Sleep disturbances, Suicidal ideation, Other Eyes: No Blurry vision, No Decreased vision, No Double vision, No Dry eyes, No Excessive tearing, No Eye Pain, No Itchy Eyes, No Loss of vision, No Photophobia, No Scotomata, No Uses contacts, No Uses glasses, No Other HEENT: No: Heacaches, Visual Changes, Hearing change, Nasal congestion, Nasal discharge, Oral lesions, Sinus pain, Sore Throat, Epistaxis, Sneezing, Snoring, Tinnitus, Vertigo, Vocal changes, Other ALLERGY AND IMMUNOLOGY: No: Hives, Insect Bite Sensitivity, Itchy/Watery Eyes, Nasal Congestion, Post Nasal Drip, Seasonal Allergies, Other Hematological and Lymphatic: No: Bleeding Problems, Blood Clots, Blood Transfusions, Brusing, Night Sweats, Pallor, Swollen Lymph Nodes, Other Respiratory: No: Cough, Hemoptysis, Orthopnea, Pleuritic Pain, Shortness of br eath, SOB with excertion, Sputum Changes, Stridor, Tachypnea, Wheezing, Other Cardiovascular: No Chest Pain, No Palpitations, No Orthopnea, No Paroxysmal Noc. Dyspnea, No Edema, No Lt Headedness, No Other Gastrointestinal: Yes Nausea, Yes Vomiting, Yes Abdominal Pain Genitourinary: No Dysuria, No Frequency, No Incontinence, No Hematuria, No Retention, No Discharge, No Urgency, No Pain, No Flank Pain, No Other, No , No , No , No , No , No , No Musculoskeletal: No Gait Disturbance, No Joint Pain, No Joint Stiffness, No Joint Swelling, No Muscle Pain, No Muscular Weakness, No Pain In:, No Swelling In:, No Other Neurological: No Behavorial Changes, No Bowel/Bladder ControlChng, No Confusion, No Dizziness, No Gait Disturbance, No Headaches, No Impaired Coord/balance, No Memory Loss, No Numbness/Tingling, No Seizures, No Speech Problems, No Tremors, No Visual Changes, No Weakness, No Other Skin: No Dry Skin, No Eczema, No Hair Changes, No Lumps, No Mole Changes, No Mottling, No Nail Changes, No Pruritus, No Rash, No Skin Lesion Changes, No Other, No Acne Physical Exam General: Alert, Cooperative, No acute distress HEENT: Atraumatic, PERRLA, EOMI Lungs: Clear to auscultation, Normal air movement Heart: Regular rate, No murmurs Abdomen: Normal bowel sounds, Soft, No tenderness, Other (Nondistended) Extremities: No edema Skin: No significant lesion Neuro: Normal speech Vitals VITALS Vital Signs Date Time Temp Pulse Resp B/P (MAP) Pulse Ox O2 Delivery O2 Flow Rate FiO2 10/08/21 11:00 98.0 73 16 142/64 (90) 93 Room Air 98.0 Labs Labs Laboratory Tests Test 10/08/21 06:40 White Blood Count 8.2 x10^3/uL (4.0-11.0) Red Blood Count 3.49 x10^6/uL (3.50-5.40) Hemoglobin 11.7 g/dL (12.0-15.5) Hematocrit 34.1 % (36.0-47.0) Mean Corpuscular Volume 98 fL (79-100) Mean Corpuscular Hemoglobin 33 pg (25-35) Mean Corpuscular Hemoglobin Concent 34 g/dL (31-37) Red Cell Distribution Width 14.6 % (11.5-14.5) Platelet Count 284 x10^3/uL (140-400) Sodium Level 137 mmol/L (136-145) Potassium Level 3.5 mmol/L (3.5-5.1) Chloride Level 103 mmol/L (98-107) Carbon Dioxide Level 23 mmol/L (21-32) Anion Gap 11 (6-14) Blood Urea Nitrogen 13 mg/dL (7-20) Creatinine 1.2 mg/dL (0.6-1.0) Estimated GFR (Cockcroft-Gault) 42.5 BUN/Creatinine Ratio 11 (6-20) Glucose Level 94 mg/dL (70-99) Calcium Level 8.8 mg/dL (8.5-10.1) Total Bilirubin 1.4 mg/dL (0.2-1.0) Aspartate Amino Transf (AST/SGOT) 25 U/L (15-37) Alanine Aminotransferase (ALT/SGPT) 16 U/L (14-59) Alkaline Phosphatase 79 U/L (46-116) Total Protein 7.1 g/dL (6.4-8.2) Albumin 3.4 g/dL (3.4-5.0) Albumin/Globulin Ratio 0.9 (1.0-1.7) Laboratory Tests Test 10/08/21 06:40 White Blood Count 8.2 x10^3/uL (4.0-11.0) Red Blood Count 3.49 x10^6/uL (3.50-5.40) Hemoglobin 11.7 g/dL (12.0-15.5) Hematocrit 34.1 % (36.0-47.0) Mean Corpuscular Volume 98 fL (79-100) Mean Corpuscular Hemoglobin 33 pg (25-35) Mean Corpuscular Hemoglobin Concent 34 g/dL (31-37) Red Cell Distribution Width 14.6 % (11.5-14.5) Platelet Count 284 x10^3/uL (140-400) Sodium Level 137 mmol/L (136-145) Potassium Level 3.5 mmol/L (3.5-5.1) Chloride Level 103 mmol/L (98-107) Carbon Dioxide Level 23 mmol/L (21-32) Anion Gap 11 (6-14) Blood Urea Nitrogen 13 mg/dL (7-20) Creatinine 1.2 mg/dL (0.6-1.0) Estimated GFR (Cockcroft-Gault) 42.5 BUN/Creatinine Ratio 11 (6-20) Glucose Level 94 mg/dL (70-99) Calcium Level 8.8 mg/dL (8.5-10.1) Total Bilirubin 1.4 mg/dL (0.2-1.0) Aspartate Amino Transf (AST/SGOT) 25 U/L (15-37) Alanine Aminotransferase (ALT/SGPT) 16 U/L (14-59) Alkaline Phosphatase 79 U/L (46-116) Total Protein 7.1 g/dL (6.4-8.2) Albumin 3.4 g/dL (3.4-5.0) Albumin/Globulin Ratio 0.9 (1.0-1.7) Images Images CT scan done at outside facility was read as multiple loops of small bowel dilation with a transition point concerning for mall bowel obstruction Assessment/Plan Assessment/Plan Nausea vomiting abdominal pain which appears to have resolved. Concern for small bowel obstruction. Conservative medical management at this point n.p.o. bowel rest IV hydration we will follow closely COLE COON MD October 08, 2021 11:46
--- NOTE | 2021-10-08 13:05 | RAD ---
EXAM: XR ABDOMEN 1V 10/08/2021 8:06 AM CLINICAL INDICATION: Small bowel obstruction COMPARISON: None TECHNIQUE: AP supine view of the abdomen FINDINGS: There is diffuse gaseous distention of small bowel and colon. There is contrast in the jonelle dder, presumably from recent IV contrast administration. The bones appear demineralized. There is mil d lumbar degenerative disc disease. Mild degenerative joint disease of the hips. IMPRESSION: Diffuse gaseous distention of small bowel and colon suspicious for ileus. Electronically signed by: Kiersten Portillo MD (10/08/2021 1:03 PM) [id number]
[2021-10-08 15:15] VITALS: BP 141/59
[2021-10-08 19:00] VITALS: BP 162/60
[2021-10-08] MEDS ORDERED: METH2.5T PO (19:05)
[2021-10-08] MEDS ORDERED: LEVO88TA4 PO (19:05)
[2021-10-08] MEDS ORDERED: ENOXAPARIN 30 MG/0.3 ML SYRINGE. SQ SCH (21:00)
[2021-10-09 03:00] VITALS: BP 139/60
[2021-10-09] MEDS: IV NORMAL SALINE 1000ML BAG 1,000 ML IV SCH (06:09)
[2021-10-09 07:00] VITALS: BP 142/62
--- NOTE | 2021-10-09 07:54 | RAD ---
2 view abdomen pelvis 7:04 AM HISTORY: Small bowel obstruction Supine and upright AP views of the abdomen pelvis There is air scattered throughout the colon. There is a paucity of small bowel gas. There is no free air. IMPRESSION: Nonobstructive bowel gas pattern. Electronically signed by: Win Pate III, MD (10/09/2021 7:52 AM) [facility]
--- NOTE | 2021-10-09 10:32 | PDOC ---
[employer] PROGRESS NOTE Date of Service DOS: DATE: 10/09/21 TIME: 10:31 Chief Complaint Chief Complaint Small bowel obstruction Advanced dementia, UTIs, osteoarthritis, asthma, chronic anticoagulation, depression, anxiety, hypothyroidism. History of Present Illness History of Present Illness 10/09/2021 Patient seen and examined She is resting with no apparent distress Her daughter and are present Discussed with RN Discussed with case management Chart reviewed She had repeat imaging this morning Vitals/I&O Vitals/I&O: Vital Signs Date Time Temp Pulse Resp B/P (MAP) Pulse Ox O2 Delivery O2 Flow Rate FiO2 10/09/21 07:59 Room Air 10/09/21 07:00 98.2 80 18 142/62 (88) 94 98.2 I & O 10/08/21 10/08/21 10/09/21 15:00 23:00 07:00 Intake Total 0 ml Balance 0 ml Physical Exam General: No acute distress Heart: Regular rate, No murmurs Lungs: Clear Abdomen: Normal bowel sounds, Soft, No tenderness, Other (Nondistended) Extremities: No edema Skin: No significant lesion Assessment and Plan Assessmemt and Plan Small bowel obstruction Advanced dementia, UTIs, osteoarthritis, asthma, chronic anticoagulation, depression, anxiety, hypothyroidism. Plan Await repeat imaging N.p.o. IV fluids Home meds when possible DVT prophylaxis Full code Appreciate subspecialist input Comment Review of Relevant I have reviewed the following items sandra (where applicable) has been applied. Medications: Current Medications Medications (Trade) Dose Ordered Sig/Ang Route PRN Reason Start Time Stop Time Status Last Admin Dose Admin Enoxaparin Sodium (Lovenox 30mg Syringe) 30 mg Q24H SQ 10/08/21 21:00 10/08/21 21:25 Lorazepam (Ativan Inj) 1 mg PRN Q4HRS PRN IVP ANXIETY / AGITATION 10/08/21 20:15 10/08/21 20:16 Justifications for Admission Other Justification ASHA ZHAO III DO October 09, 2021 10:32
[2021-10-09 11:00] VITALS: BP 146/65
--- NOTE | 2021-10-09 11:45 | NUR ---
Per patient may discharge to home with when she can tolerate full liquid diet. notified and would like to home as soon as possible and safe.
--- NOTE | 2021-10-09 12:01 | PDOC ---
SURGICAL PROGRESS NOTE DATE: 10/09/21 TIME: 12:00 Subjective very drowsy received Ativan over night family is very concerned on why, how sedated she is etc Vital Signs Vital Signs Date Time Temp Pulse Resp B/P (MAP) Pulse Ox O2 Delivery O2 Flow Rate FiO2 10/09/21 11:00 98.1 80 18 146/65 (92) 93 Room Air 98.1 I&O Intake and Output 10/09/21 07:00 Intake Total 0 ml Balance 0 ml Intake Oral 0 ml # Voids 1 General: Other (will open eyes briefly with stimuli) Abdomen: Soft, No tenderness Labs Laboratory Tests Test 10/08/21 06:40 White Blood Count 8.2 x10^3/uL (4.0-11.0) Red Blood Count 3.49 x10^6/uL (3.50-5.40) Hemoglobin 11.7 g/dL (12.0-15.5) Hematocrit 34.1 % (36.0-47.0) Mean Corpuscular Volume 98 fL (79-100) Mean Corpuscular Hemoglobin 33 pg (25-35) Mean Corpuscular Hemoglobin Concent 34 g/dL (31-37) Red Cell Distribution Width 14.6 % (11.5-14.5) Platelet Count 284 x10^3/uL (140-400) Sodium Level 137 mmol/L (136-145) Potassium Level 3.5 mmol/L (3.5-5.1) Chloride Level 103 mmol/L (98-107) Carbon Dioxide Level 23 mmol/L (21-32) Anion Gap 11 (6-14) Blood Urea Nitrogen 13 mg/dL (7-20) Creatinine 1.2 mg/dL (0.6-1.0) Estimated GFR (Cockcroft-Gault) 42.5 BUN/Creatinine Ratio 11 (6-20) Glucose Level 94 mg/dL (70-99) Calcium Level 8.8 mg/dL (8.5-10.1) Total Bilirubin 1.4 mg/dL (0.2-1.0) Aspartate Amino Transf (AST/SGOT) 25 U/L (15-37) Alanine Aminotransferase (ALT/SGPT) 16 U/L (14-59) Alkaline Phosphatase 79 U/L (46-116) Total Protein 7.1 g/dL (6.4-8.2) Albumin 3.4 g/dL (3.4-5.0) Albumin/Globulin Ratio 0.9 (1.0-1.7) Assessment/Plan xr improved once awake can trial diet Justicifation of Admission Dx: Justifications for Admission: Justification of Admission Dx: Yes MILTON MENESES [employer] WIPER October 09, 2021 12:01
[2021-10-09 15:00] VITALS: BP 121/54
--- NOTE | 2021-10-10 22:17 | DS ---
DATE OF DISCHARGE: 10/09/2021 ADMISSION DIAGNOSIS: Small bowel obstruction. DISCHARGE DIAGNOSES: Resolved small bowel obstruction, history of dementia, urinary tract infections, osteoarthritis, asthma, chronic anticoagulation, depression, anxiety and hypothyroidism. HOSPITAL COURSE: The patient is a pleasant elderly female who has advanced dementia. She presented with a small bowel obstruction. We did not have to place an NG tube. We did consult General Surgery. We have followed her imaging. Yesterday, her imaging improved. We advanced her diet. We discharged to home. DISPOSITION: Home. ACTIVITY: As tolerated. DIET: Low sodium. DISCHARGE MEDICATIONS: Please see the MRAD. P.r.n. Tylenol, p.r.n. albuterol, citalopram 20 a day, folic acid, hydroxychloroquine 200 b.i.d., Synthroid 88 a day and methotrexate 2.5, 6 tabs weekly. Total time 34 minutes. SHERRY/AGAPITO/LAVINIA DR: Farida TID: [id number]
== END 2021-10-09 16:10 | disposition home or self-care (01) | DRG 390 ==
LOC: 4 NORTH 00:13
PROVIDERS: ADMIT Student in an Organized Health Care Education/Training Program; ATTEND Student in an Organized Health Care Education/Training Program
DX: K56.609 Unspecified intestinal obstruction, unspecified as to partial versus complete obstruction (principal); Z88.8 Allergy status to other drugs, medicaments and biological substances; E03.9 Hypothyroidism, unspecified; E78.5 Hyperlipidemia, unspecified; F03.90 Unspecified dementia, unspecified severity, without behavioral disturbance, psychotic disturbance, mood disturbance, and anxiety; F32.A Depression, unspecified; F41.9 Anxiety disorder, unspecified; I10 Essential (primary) hypertension; J45.909 Unspecified asthma, uncomplicated; M19.90 Unspecified osteoarthritis, unspecified site; Z79.01 Long term (current) use of anticoagulants; Z82.49 Family history of ischemic heart disease and other diseases of the circulatory system; Z90.710 Acquired absence of both cervix and uterus; Z87.440 Personal history of urinary (tract) infections
CPT/HCPCS: 36415; 74018; 74021; 80053; 85027; J1650; J2060; J7030; G0378

== ENCOUNTER 2021-10-21 06:17 | Emergency (ER) | payer MEDICARE ==
[~2021-10-21] VITALS: Ht 172.7 cm; Wt 54.0 kg
[~2021-10-21 06:17] MED LIST changes: +APIX5TAB PO; +BUSP10TA PO; +LEVO88TA4 PO
[2021-10-21] MEDS ORDERED: KETOROLAC 30 MG/ML VIAL. IVP ONE (06:30)
--- NOTE | 2021-10-21 07:15 | EKG ---
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
[2021-10-21 07:17] LABS: BASO % 0 % (0-3); EOS # 0.1 x10^3/uL (0.0-0.7); EOS % 1 % (0-3); HEMOGLOBIN 11.1 g/dL (12.0-15.5); LYMPH % 13 % (24-48); MEAN CORPUSCULAR HEMOGLOBIN 33 pg (25-35); MEAN CORPUSCULAR HGB CONC 34 g/dL (31-37); MEAN CORPUSCULAR VOLUME 98 fL (79-100); MONO # 0.7 x10^3/uL (0.0-1.1); MONO % 9 % (0-9); NEUT # 5.7 x10^3/uL (1.8-7.7); NEUT % 76 % (31-73); PLATELET COUNT 225 x10^3/uL (140-400); RED BLOOD COUNT 3.36 x10^6/uL (3.50-5.40); WHITE BLOOD COUNT 7.5 x10^3/uL (4.0-11.0)
[2021-10-21 07:28] LABS: CALCIUM 8.6 mg/dL (8.5-10.1); CREATININE 0.9 mg/dL (0.6-1.0); GFR 59.2; POTASSIUM 3.7 mmol/L (3.5-5.1)
[2021-10-21 07:32] LABS: PROTHROMBIN TIME PATIENT 15.1 SEC (11.7-14.0)
[2021-10-21 07:35] LABS: ALBUMIN 3.4 g/dL (3.4-5.0); TOTAL PROTEIN 6.8 g/dL (6.4-8.2)
[2021-10-21] MEDS ORDERED: CONTRAST GIVEN. MC PRN (07:45)
[2021-10-21] MEDS ORDERED: IOHEXOL 300 MG/ML 100ML VIAL. IV ONE (07:45)
[2021-10-21 07:49] LABS: C-REACTIVE PROTEIN 51.9 mg/L (0-3.3)
--- NOTE | 2021-10-21 08:39 | RAD ---
CT ABDOMEN+PELVIS W History: Abdominal pain. Comparison: CT abdomen and pelvis 10/06/2016. Chest radiograph 01/26/2021 Technique: CT of the abdomen and pelvis with intravenous contrast. Findings: Bilateral lower lobe groundglass airspace opacification new from 2016. Bronchiectasis and chronic geo earing consolidation in the right middle lobe and lingula. Coronary artery calcifications. No pleural effusion. The liver, gallbladder, pancreas, and adrenal glands are unremarkable. Punctate calcifications in the spleen consistent with old granulomatous disease. There is no nephrolithiasis or hydronephrosis. Bladder is unremarkable. Status post hysterectomy. No pelvic masses. Patulous distal esophagus versus small hiatal hernia. Small bowel is nondistended. There is moderate colonic stool. No colonic inflammatory changes. No intra-abdominal free air or free fluid. Atherosclerotic calcifications the aorta and iliac arterie s without aneurysm. No adenopathy. Decreased osseous mineralization. Compression fracture of the T10 vertebral body, with approximately 50 percent height loss, new from January 2021. Multilevel degenerat isidoro changes in the spine. Soft tissues are unremarkable. Impression: 1. No acute findings in the abdomen and pelvis. 2. Compression fracture of T10 vertebral body new from January 2021. 3. 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 ------ Exposure: One or more of the following individualized dose reduction techniques were utilized for thi s examination: 1. Automated exposure control 2. Adjustment of the mA and/or kV according to patient size 3. Use of iterative reconstruction technique. Electronically signed by: Josef Horna MD (10/21/2021 8:36 AM) [id number]
[2021-10-21 09:08] LABS: BARBITURATES NEG (NEG); BENZODIAZEPINES NEG (NEG); CANNABINOIDS NEG (NEG); COCAINE NEG (NEG); METHADONE NEG (NEG); OPIATES NEG (NEG); PHENCYCLIDINE NEG (NEG)
[2021-10-21 09:09] LABS: BACTERIA,URINE 0 /HPF (0-FEW); RBC,URINE 0 /HPF (0-2); WBC,URINE OCC /HPF (0-4)
[2021-10-21] MEDS ORDERED: methylPREDNISolone SOD SUCC PF 40 MG/ML VIAL. IV ONE (09:15)
[2021-10-21] MEDS ORDERED: IV RINGERS,LACTATED 500ML 500 ML IV ONE (09:15)
[2021-10-21 09:21] LABS: AMPHETAMINE/METHAMPHETAMINE NEG (NEG)
--- NOTE | 2021-10-21 09:24 | PHYS DOC ---
Past Medical History Past Medical History: Arthritis, Dementia, Depression, High Cholesterol, Hypothyroid, Other Additional Past Medical Histor: RHEUMATIOD ARTHRITIS Past Surgical History: Appendectomy, Cholecystectomy, Hysterectomy Additional Past Surgical Histo: cataracts Smoking Status: Never Smoker Alcohol Use: None Drug Use: None General Adult EDM: Chief Complaint: WEAKNESS/GENERALIZED HPI: HPI: Patient is a 86 year old female who was admitted here a couple of weeks ago for ileus presents with hand and foot pain as well as some abdominal pain. Patient states she is otherwise feeling well. However she is having some pain in her hands and feet. She has a history of rheumatoid arthritis. Otherwise she has no symptoms. Review of Systems: Review of Systems: Constitutional: Denies fever or chills. [] Eyes: Denies change in visual acuity. [] HENT: Denies nasal congestion or sore throat. [] Respiratory: Denies cough or shortness of breath. [] Cardiovascular: Denies chest pain or edema. [] GI: Positive minimal abdominal pain generalized, nausea, vomiting, bloody stools or diarrhea. [] : Denies dysuria. [] Musculoskeletal: Denies back pain, positive bilateral hand and feet pain [] Integument: Denies rash. [] Neurologic: Denies headache, focal weakness or sensory changes. [] Endocrine: Denies polyuria or polydipsia. [] Lymphatic: Denies swollen glands. [] Psychiatric: Denies depression or anxiety. [] Heart Score: C/O Chest Pain: No Risk Factors: Risk Factors: DM, Current or recent (<one month) smoker, HTN, HLP, family history of CAD, obesity. Risk Scores: Score 0 - 3: 2.5% MACE over next 6 weeks - Discharge Home Score 4 - 6: 20.3% MACE over next 6 weeks - Admit for Clinical Observation Score 7 - 10: 72.7% MACE over next 6 weeks - Early Invasive Strategies Current Medications: Current Medications Medications (Trade) Dose Ordered Sig/Ang Start Time Stop Time Status Last Admin Dose Admin Info (CONTRAST GIVEN -- Rx MONITORING) 1 each PRN DAILY PRN 10/21/21 07:45 10/23/21 07:44 Iohexol (Omnipaque 300 Mg/ml) 60 ml 1X ONCE 10/21/21 07:45 10/21/21 07:46 DC 10/21/21 07:45 60 ML Ketorolac Tromethamine (Toradol 30mg Vial) 15 mg 1X ONCE 10/21/21 06:30 10/21/21 06:36 DC 10/21/21 07:19 15 MG Methylprednisolone Sodium Succinate (SOLU-Medrol 40MG VIAL) 40 mg 1X ONCE 10/21/21 09:15 10/21/21 09:16 DC Ringer's Solution 500 ml @ 500 mls/hr 1X ONCE 10/21/21 09:15 10/21/21 10:14 Allergies: Allergies: Allergies Coded Allergies Type Severity Reaction Last Updated Verified apixaban Allergy Severe 10/09/21 Yes tramadol Allergy Intermediate 10/09/21 Yes Physical Exam: PE: Constitutional: Well developed, well nourished, no acute distress, non-toxic appearance. [] HENT: Normocephalic, atraumatic, bilateral external ears normal, oropharynx moist, no oral exudates, nose normal. [] Eyes: PERRLA, EOMI, conjunctiva normal, no discharge. [] Neck: Normal range of motion, no tenderness, supple, no stridor. [] Cardiovascular:Heart rate regular rhythm, no murmur [] Lungs & Thorax: Bilateral breath sounds clear to auscultation [] Abdomen: Bowel sounds normal, soft, no tenderness, no masses, no pulsatile masses. [] Skin: Warm, dry, no erythema, no rash. [] Back: No tenderness, no CVA tenderness. [] Extremities: No tenderness, no cyanosis, no clubbing, ROM intact, no edema. [] Neurologic: Alert and oriented X 3, normal motor function, normal sensory function, no focal deficits noted. [] Psychologic: Affect normal, judgement normal, mood normal. [] Current Patient Data: Labs: Laboratory Tests Test 10/21/21 07:01 10/21/21 08:38 White Blood Count 7.5 x10^3/uL (4.0-11.0) Red Blood Count 3.36 x10^6/uL (3.50-5.40) L Hemoglobin 11.1 g/dL (12.0-15.5) L Hematocrit 33.0 % (36.0-47.0) L Mean Corpuscular Volume 98 fL (79-100) Mean Corpuscular Hemoglobin 33 pg (25-35) Mean Corpuscular Hemoglobin Concent 34 g/dL (31-37) Red Cell Distribution Width 14.0 % (11.5-14.5) Platelet Count 225 x10^3/uL (140-400) Neutrophils (%) (Auto) 76 % (31-73) H Lymphocytes (%) (Auto) 13 % (24-48) L Monocytes (%) (Auto) 9 % (0-9) Eosinophils (%) (Auto) 1 % (0-3) Basophils (%) (Auto) 0 % (0-3) Neutrophils # (Auto) 5.7 x10^3/uL (1.8-7.7) Lymphocytes # (Auto) 1.0 x10^3/uL (1.0-4.8) Monocytes # (Auto) 0.7 x10^3/uL (0.0-1.1) Eosinophils # (Auto) 0.1 x10^3/uL (0.0-0.7) Basophils # (Auto) 0.0 x10^3/uL (0.0-0.2) Erythrocyte Sedimentation Rate 57 (0-25) H Prothrombin Time 15.1 SEC (11.7-14.0) H Prothrombin Time INR 1.2 (0.8-1.1) H Activated Partial Thromboplast Time 29 SEC (24-38) Sodium Level 139 mmol/L (136-145) Potassium Level 3.7 mmol/L (3.5-5.1) Chloride Level 104 mmol/L (98-107) Carbon Dioxide Level 25 mmol/L (21-32) Anion Gap 10 (6-14) Blood Urea Nitrogen 10 mg/dL (7-20) Creatinine 0.9 mg/dL (0.6-1.0) Estimated GFR (Cockcroft-Gault) 59.2 BUN/Creatinine Ratio 11 (6-20) Glucose Level 93 mg/dL (70-99) Lactic Acid Level 1.1 mmol/L (0.4-2.0) Calcium Level 8.6 mg/dL (8.5-10.1) Total Bilirubin 1.0 mg/dL (0.2-1.0) Aspartate Amino Transferase (AST) 17 U/L (15-37) Alanine Aminotransferase (ALT) 13 U/L (14-59) L Alkaline Phosphatase 89 U/L (46-116) Lactate Dehydrogenase 258 U/L (81-234) H Creatine Kinase 106 U/L (26-192) Troponin I High Sensitivity 13 ng/L (4-50) C-Reactive Protein, Quantitative 51.9 mg/L (0-3.3) H Total Protein 6.8 g/dL (6.4-8.2) Albumin 3.4 g/dL (3.4-5.0) Albumin/Globulin Ratio 1.0 (1.0-1.7) Lipase 50 U/L (73-393) L Urine Collection Type Unknown Urine Color (Auto) Yellow Urine Turbidity Clear Urine pH (Auto) 8.0 (<5.0-8.0) Urine Specific Brandon >1.050 (1.000-1.030) Urine Protein (Auto) Negative mg/dL (Negative) Urine Glucose (Auto)(UA) Negative mg/dL (Negative) Urine Ketones (Auto) Negative mg/dL (Negative) Urine Blood (Auto) Negative (Negative) Urine Nitrite Negative (Negative) Urine Bilirubin (Auto) Negative (Negative) Urine Urobilinogen (Auto) 2 mg/dL (Normal) Urine Leukocyte Esterase (Auto) Negative (Negative) Urine RBC 0 /HPF (0-2) Urine WBC Occ /HPF (0-4) Urine Squamous Epithelial Cells Occ /LPF Urine Bacteria 0 /HPF (0-FEW) Urine Opiates Screen Neg (NEG) Urine Methadone Screen Neg (NEG) Urine Barbiturates Neg (NEG) Urine Phencyclidine Screen Neg (NEG) Urine Amphetamine/Methamphetamine Neg (NEG) Urine Benzodiazepines Screen Neg (NEG) Urine Cocaine Screen Neg (NEG) Urine Cannabinoids Screen Neg (NEG) Urine Ethyl Alcohol Neg (NEG) Laboratory Tests 10/21/21 07:01 Laboratory Tests 10/21/21 07:01 Vital Signs: Vital Signs Date Time Temp Pulse Resp B/P (MAP) Pulse Ox O2 Delivery O2 Flow Rate FiO2 10/21/21 06:27 98.5 82 23 151/70 (97) 98 Room Air 98.5 EKG: EKG: Normal sinus rhythm, leftward axis deviation [] Radiology/Procedures: Radiology/Procedures: CT ABDOMEN+PELVIS W History: Abdominal pain. Comparison: CT abdomen and pelvis 10/06/2016. Chest radiograph 01/26/2021 Technique: CT of the abdomen and pelvis with intravenous contrast. Findings: Bilateral lower lobe groundglass airspace opacification new from 2017. Bronchiectasis and chronic appearing consolidation in the right middle lobe and lingula. Coronary artery calcifications. No pleural effusion. The liver, gallbladder, pancreas, and adrenal glands are unremarkable. Punctate calcifications in the spleen consistent with old granulomatous disease. There is no nephrolithiasis or hydronephrosis. Bladder is unremarkable. Status post hysterectomy. No pelvic masses. Patulous distal esophagus versus small hiatal hernia. Small bowel is nondistended. There is moderate colonic stool. No colonic inflammatory changes. No intra-abdominal free air or free fluid. Atherosclerotic calcifications the aorta and iliac arteries without aneurysm. No adenopathy. Decreased osseous mineralization. Compression fracture of the T10 vertebral body, with approximately 50 percent height loss, new from January 2021. Multilevel degenerative changes in the spine. Soft tissues are unremarkable. Impression: 1. No acute findings in the abdomen and pelvis. 2. Compression fracture of T10 vertebral body new from January 2021. 3. 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 Impression: Rheumatoid arthritis exacerbation Course & Med Decision Making: Course & Med Decision Making Pertinent Labs and Imaging studies reviewed. (See chart for details) 86-year-old female with past medical history of rheumatoid arthritis and dementia presents with hand and foot pain. Patient states that she also has some abdominal pain as well. Patient states that she was here several weeks ago for ileus. She was discharged in stable condition. She is currently feeling pain in her hands and feet. She was given 1 dose of Solu-Medrol IV as well as 500 cc of normal saline. Patient stated that her pain resolved, she was able to ambulate normally. 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 I explained this to the family and the patient. I reviewed the findings, ESR and CRP elevated. Patient discharged in normal stable condition at patient's baseline. Family comfortable with discharge, agrees to follow-up with primary care physician, ER precautions given, all questions answered. Jerome Disclaimer: Jerome Disclaimer: This electronic medical record was generated, in whole or in part, using a voice recognition dictation system. Departure Departure Referrals: MINOR RODRIGUEZ MD (PCP) Scripts Prednisone (PREDNISONE) 20 Mg Tablet 2 TAB PO DAILY for 7 Days, #14 TAB Prov: DELIA BANKS MD 10/21/21 DELIA BANKS MD October 21, 2021 09:24
[2021-10-21] MEDS ORDERED: IV NORMAL SALINE 500ML BAG 500 ML IV ONE (09:30)
[2021-10-21] MEDS ORDERED: PRED20TA PO (10:06)
[2021-10-21 10:37] VITALS: BP 129/65
== END 2021-10-21 10:41 | disposition home or self-care (01) ==
LOC: ER 06:17
DX: R10.84 Generalized abdominal pain (principal); E78.00 Pure hypercholesterolemia, unspecified; E03.9 Hypothyroidism, unspecified; Z90.89 Acquired absence of other organs; Z90.49 Acquired absence of other specified parts of digestive tract; Z90.710 Acquired absence of both cervix and uterus; Z88.6 Allergy status to analgesic agent; Z88.8 Allergy status to other drugs, medicaments and biological substances
CPT/HCPCS: 36415; 74177; 80053; 80307; 81001; 82550; 83605; 83615; 83690; 84484; 85025; 85610; 85651; 85730; 86140; 93005; 96361; 96374; 96375; 99285; J1885; J2920; J7040; Q9967